=== PATIENT | female | born 1935 | race Caucasian/White ===

== ENCOUNTER → 2016-09-26 | Outpatient (CLI) | payer MEDICARE ==
--- NOTE | 2016-09-27 07:55 | MM ---
Reason for exam: screening (asymptomatic). Last mammogram was performed 1 year ago. History: Patient is postmenopausal. Physical Findings: A clinical breast exam by your physician is recommended on an annual basis and results should be correlated with mammographic findings. MG Screening Mammo w CAD Bilateral CC and MLO view(s) were taken. Prior study comparison: September 21, 2015, bilateral MG screening mammo w CAD. September 08, 2014, bilateral MG screening mammo w CAD. There are scattered fibroglandular densities. Finding: There are typically benign round, linear calcifications in both breasts. There is a chronic nodularity in the left breast. There is no discrete abnormality. ASSESSMENT: Benign, BI-RAD 2 RECOMMENDATION: Routine screening mammogram of both breasts in 1 year.
== END | disposition home or self-care (01) ==
LOC: RADMAMWWP 12:10
PROVIDERS: ATTEND Family Medicine
DX: Z12.31 Encounter for screening mammogram for malignant neoplasm of breast (principal)

== ENCOUNTER → 2018-07-16 | Outpatient (CLI) | payer MEDICARE ==
--- NOTE | 2018-07-17 13:51 | MM ---
Reason for exam: screening (asymptomatic). Last mammogram was performed 1 year and 10 months ago. History: Patient is postmenopausal. Physical Findings: A clinical breast exam by your physician is recommended on an annual basis and results should be correlated with mammographic findings. MG 3D Screening Mammo W/Cad Bilateral CC and MLO view(s) were taken. Prior study comparison: September 26, 2016, bilateral MG screening mammo w CAD. September 21, 2015, bilateral MG screening mammo w CAD. There are scattered fibroglandular densities. Finding: There are very faint fine, grouped/clustered calcifications in the lower inner quadrant, posterior position of the right breast 7cm from the nipple. New finding since September 26, 2016 and September 21, 2015. ASSESSMENT: Incomplete: need additional imaging evaluation, BI-RAD 0 RECOMMENDATION: Special view mammogram of the right breast. [facility] will attempt to contact patient to return for supplemental views.
== END | disposition home or self-care (01) ==
LOC: RADMAMWWP 07:04
PROVIDERS: ATTEND Family Medicine
DX: Z12.31 Encounter for screening mammogram for malignant neoplasm of breast (principal)
CPT/HCPCS: 77063; 77067

== ENCOUNTER → 2018-07-24 | Outpatient (CLI) | payer MEDICARE ==
--- NOTE | 2018-07-24 10:18 | MM ---
Reason for exam: additional evaluation requested from abnormal screening. Last mammogram was performed less than 1 month ago. History: Patient is postmenopausal. Physical Findings: Nurse did not find any significant physical abnormalities on exam. MG 3D Work Up W/Cad RT CC with magnification, ML with magnification, and ML view(s) were taken of the right breast. Prior study comparison: July 16, 2018, bilateral MG 3d screening mammo w/cad. September 26, 2016, bilateral MG screening mammo w CAD. No distinct group of suspicious calcifications persists on additional views. These results were verbally communicated with the patient and result sheet given to the patient on 07/24/18. ASSESSMENT: Benign, BI-RAD 2 RECOMMENDATION: Return to routine screening mammogram schedule for both breasts.
== END ==
LOC: RADMAMWWP 09:05
PROVIDERS: ATTEND Family Medicine
DX: R92.8 Other abnormal and inconclusive findings on diagnostic imaging of breast (principal)
CPT/HCPCS: 77065; G0279; 77061

== ENCOUNTER → 2018-12-02 | Outpatient (CLI) | payer MEDICARE ==
[2018-12-02 09:48] LABS: Blood Urea Nitrogen 17 mg/dL (7-17)
--- NOTE | 2018-12-02 12:11 | CT ---
EXAMINATION TYPE: CT abdomen pelvis w con DATE OF EXAM: 12/02/2018 COMPARISON: None HISTORY: Bllod in urine CT DLP: 1463.8 mGycm Automated exposure control for dose reduction was used. CONTRAST: CT scan of the abdomen pelvis is performed with IV Contrast, patient injected with 100 mL of Isovue 3 00. FINDINGS- LUNG BASES- No significant abnormality is appreciated. LIVER/GB- No gross abnormality is appreciated. PANCREAS- No gross abnormality is seen. SPLEEN- No gross abnormality is seen. ADRENALS- No gross abnormality is seen. KIDNEYS/BLADDER- no hydronephrosis, nephrolithiasis or renal mass. BOWEL-there is a hiatal hernia. Thickening of the wall the distal gastroesophageal junction suggested . Correlate with direct visualization. Diverticulosis of the colon. LYMPH NODES- No greater than 1cm abdominal or pelvic lymph nodes areappreciated. OSSEOUS STRUCTURES-multilevel degenerative disc disease. Canal stenosis is suspected at L4-5, L5-S1. Arthropathy of the hips. Scoliosis noted. Densities along the left humeral head may be related to for eign body or soft tissue ossification. OTHER- post hysterectomy changes noted . Bladder distends normally with no calcifications or wall th ickening. Calcifications in the lower pelvis appear vascular. Aorta of normal caliber with atheroscle rotic changes. No free fluid. Small periumbilical fat-containing hernia noted. Arthropathy of the SI joints. IMPRESSION- 1. No evidence of a renal mass or hydronephrosis, nephrolithiasis. 2. Bladder has a normal appearance. 3. Diverticulosis of the colon. 4. A moderate-sized hiatal hernia with wall thickening the GE junction and could be secondary to the hiatal hernia. Esophagitis remote mucosal lesion not excluded, correlate clinically and if necessary with direct visualization.
== END ==
LOC: RADCTMAIN 08:45
PROVIDERS: ATTEND Urology
DX: K57.30 Diverticulosis of large intestine without perforation or abscess without bleeding (principal); K44.9 Diaphragmatic hernia without obstruction or gangrene; K22.8 Other specified diseases of esophagus; R31.0 Gross hematuria
CPT/HCPCS: 82565; 84520; 74177; 36415; Q9967 ×2

== ENCOUNTER 2019-07-04 10:08 | Day surgery (SDC) | payer MEDICARE ==
[2019-06-30 12:11] VITALS: BMI 37.8
--- NOTE | 2019-07-02 17:14 | HP ---
HISTORY AND PHYSICAL CHIEF COMPLAINT: Left thumb pain. 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 She notes intermittent catching and locking. Her symptoms are worse in the morning. She has tried medications and in addition has had 2 previous injections, with recurrence of her symptoms. PAST MEDICAL HISTORY: Past medical history is significant for: 1. Hypothyroidism. 2. Hypercholesterolemia. 3. Hypertension. PAST SURGICAL HISTORY: Negative. CURRENT MEDICATIONS: 1. Aspirin. 2. Levothyroxine. 3. Antihypertensives. FAMILY HISTORY: Family history is noncontributory. SOCIAL HISTORY: Negative for current tobacco or alcohol use. REVIEW OF SYSTEMS: Sixteen-point review of systems otherwise reviewed and is noncontributory. PHYSICAL EXAMINATION: On examination, the patient is approximately 4 feet 11 inches, 190 pounds of endomorphic habitus. HEENT exam is nonfocal. NECK: Supple. She is nontender about the left shoulder, elbow and wrist. On examination of her left hand, she has moderate stiffness of the left thumb. She is tender over the oblique swati with palpable catching. 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 Light touch is distally intact. IMPRESSION: Recurrent left trigger thumb, symptomatic. RECOMMENDATIONS: I talked to the patient at length regarding her condition along with treatment options. At this point she remains symptomatic despite conservative measures. After thorough discussion, she opted to proceed with surgery. We will plan to proceed with left trigger thumb release. We will likely perform that utilizing local anesthetic and IV sedation. We will likely also perform that as an outpatient procedure. CHARLES / KATERYNAN: [id number] /
[~2019-07-04 10:08] MED LIST: LACTATED RINGERS 1,000 ML IV SCH; LIDOCAINE 1% 20 ML VIAL (10MG/ML) FOR IV START INTRADERMA PRN; MIDAZOLAM 2 MG/2 ML VIAL IV PRN; fentaNYL (PF) 50 MCG/ML 2 ML AMP IV PRN
[2019-07-04 10:26] VITALS: TEMP 97.8
[2019-07-04] MEDS ORDERED: LACTATED RINGERS 1,000 ML IV ONE (10:28)
[2019-07-04] MEDS ORDERED: PROPOFOL 10 MG/ML 20 ML VIAL IV ONE (11:57)
[2019-07-04] MEDS ORDERED: MIDAZOLAM 2 MG/2 ML VIAL ONE (11:57)
[2019-07-04] MEDS ORDERED: fentaNYL (PF) 50 MCG/ML 2 ML AMP ONE (11:57)
[2019-07-04] MEDS ORDERED: BUPIVACAINE (PF) 0.25% 30 ML VIAL SQ ONE ×2 (12:07→12:14)
--- NOTE | 2019-07-04 12:31 | P.OP ---
Date of Procedure: 07/04/19 Preoperative Diagnosis: Symptomatic left trigger thumb Postoperative Diagnosis: Same Procedure(s) Performed: Left trigger thumb release Anesthesia: MAC, local Surgeon: Rik Iverson Estimated Blood Loss (ml): 1 Pathology: none sent Condition: stable Disposition: PACU Indications for Procedure: The patient's an 83-year-old female who presents with persistent left thumb pain and locking despite extensive conservative measures. A discussion of the risks and benefits of operative intervention with patient. She opted to proceed. Operative risks to include infection, neurovascular injury, possible recurrence, possible need for subsequent procedures was discussed. Informed consent was obtained. Operative Findings: As below Description of Procedure: The patient was brought to the operating room, and after induction of IV sedation the left upper extremity was prepped and draped in normal fashion. The tourniquet was inflated to a 250 mm mercury. Incision site was outlined skin marker along the volar proximal crease of the left thumb. 5 mL of quarter percent plain Marcaine was injected the proposed incision site. The skin was incised sharply. Subcu change tissues were divided bluntly. The neurovascular bundles were gently retracted. The oblique swati was identified and was quite thickened. This was then opened proximal to distal completely. A portion was excised. The tendon was inspected and had a nodule present. After release of the swati, there was good tendon excursion. The wound was irrigated normal saline. The skin was reapproximated with simple 4-0 nylon suture. A sterile dressing was applied. The tourniquet was deflated less than 10 minutes total tourniquet time. The patient was then awoken from sedation and transferred to recovery room in good condition. Blood loss was estimated 1 mL. No complications were incurred. Sponge and needle counts were correct at of the end the case.
[2019-07-04] MEDS ORDERED: HYDROCHLOROTHIAZIDE 12.5 MG CAP PO STA (13:15)
[2019-07-04] MEDS ORDERED: ACETAMINOPHEN TAB 500 MG TAB PO ONE (13:27)
[2019-07-04 14:47] VITALS: BP 144/64; PULSE 78; RESP 16
== END 2019-07-04 14:55 | disposition home or self-care (01) ==
LOC: OR 10:08
PROVIDERS: ATTEND Orthopaedic Surgery
DX: M65.312 Trigger thumb, left thumb (principal); I10 Essential (primary) hypertension; E03.9 Hypothyroidism, unspecified; E78.5 Hyperlipidemia, unspecified; E78.00 Pure hypercholesterolemia, unspecified; E66.01 Morbid (severe) obesity due to excess calories; Z88.2 Allergy status to sulfonamides; Z90.710 Acquired absence of both cervix and uterus; Z79.82 Long term (current) use of aspirin; Z68.38 Body mass index [BMI] 38.0-38.9, adult; Z79.890 Hormone replacement therapy; Z79.899 Other long term (current) drug therapy
CPT/HCPCS: 26055; J2250; J0690; J3010; J2704

== ENCOUNTER → 2019-08-28 | Outpatient (CLI) | payer MEDICARE ==
--- NOTE | 2019-08-28 09:54 | BD ---
EXAMINATION TYPE: Axial Bone Density DATE OF EXAM: 08/28/2019 COMPARISON: 08.02.2012 CLINICAL HISTORY: 83 YR OLD FEMALE....ICD-10 CODE: M81.0 OSTEOPOROSIS Height: 57.8 Weight: 196 FRAX RISK QUESTIONS: Secondary Osteoporosis: YES 3. Menopause before 45: YES, AT 43 RISK FACTORS HISTORY OF: Postmenopausal woman: YES, COMPLETE HYST AT AGE 43 YRS Lost more than 2 inches in height since high school: YES Hyperparathyroidism: NO Adrenal Insufficiency: NO MEDICATIONS: Thyroid Medications: YES, SYNTHROID FOR ABOUT 8 YRS Additional Medications: BP MEDS, STATIN FOR CHOLESTEROL, VIT D, CALCIUM Additional History: HYPERTENSION, CHOLESTEROL EXAM MEASUREMENTS: Bone mineral densitometry was performed using the [employer] System. Bone mineral density as measured about the Lumbar spine is: ----- L1-L4(G/cm2): 1.099 T Score Values are as follows: ----- L1: -2.2 ----- L2: -1.8 ----- L3: -1.0 ----- L4: 2.0 ----- L1-L4: -0.7 Bone mineral density has: Increased 11.0% since study of: 08.02.2012 Bone mineral density about the R hip (g/cm2): 0.879 Bone mineral density about the L hip (g/cm2): 0.906 T Score values are as follows: -----R Neck: -2.1 -----L Neck: -2.2 -----R Total: -1.0 -----L Total: -0.8 Bone mineral density has: Increased 1.8% since study of: 08.02.2012 FRAX%s: THERE IS A 14.7% CHANCE FOR A MAJOR OSTEOPOROTIC FX AND A 4.5% FOR HIP....PROBABILITY FOR F X IN 10 YRS TIME IMPRESSION: Osteopenia (T Score between -2.5 and -1). There is slightly increased risk of fracture and the patient may be considered for treatment. Re-Screen 2-5 years. NOTE: T-SCORE=SD OF THE YOUNG ADULT MEAN.
--- NOTE | 2019-08-29 10:49 | MM ---
Reason for exam: screening (asymptomatic). Last mammogram was performed 1 year and 1 month ago. History: Patient is postmenopausal. Physical Findings: A clinical breast exam by your physician is recommended on an annual basis and results should be correlated with mammographic findings. MG Screening Mammo w CAD Bilateral CC and MLO view(s) were taken. Prior study comparison: July 24, 2018, right breast MG 3d work up w/cad RT. July 16, 2018, bilateral MG 3d screening mammo w/cad. There are scattered fibroglandular densities. Finding: There are typically benign round, linear calcifications in both breasts. There is a chronic nodularity bilaterally. There is no discrete abnormality. ASSESSMENT: Benign, BI-RAD 2 RECOMMENDATION: Routine screening mammogram of both breasts in 1 year.
== END | disposition home or self-care (01) ==
LOC: RADMAMWWP 08:28
PROVIDERS: ATTEND Internal Medicine
DX: Z12.31 Encounter for screening mammogram for malignant neoplasm of breast (principal); Z13.820 Encounter for screening for osteoporosis; M85.80 Other specified disorders of bone density and structure, unspecified site
CPT/HCPCS: 77067; 77080

== ENCOUNTER → 2023-05-30 | Outpatient (CLI) | payer MEDICARE ==
--- NOTE | 2023-05-30 21:05 | MR ---
EXAMINATION TYPE: MR lumbar spine wo con DATE OF EXAM: 05/30/2023 COMPARISON: NONE HISTORY: Low back pain and weakness into both legs, Left leg swelling for one year. Monoplegia of low er limb. TECHNIQUE: Multiplanar, multisequence imaging of the lumbar spine is performed without IV contrast. FINDINGS: Sagittal images of the lumbar spine show vertebral body heights to appear satisfactory. The re is extra convex scoliosis centered in the lower lumbar spine. There is grade 1 retrolisthesis of L 1 on L2 and L2 on L3. There is multilevel disc desiccation and disc space narrowing. Advanced disc sp ash narrowing noted at L4-L5 level with heterogeneous Modic type II endplate changes. There is modera te to advanced disc space narrowing at right L1-L2 level with Modic type I endplate changes. The con us medullaris is normal in position and signal ending at mid L1 level. Tiny posterior disc herniatio ns are seen in the lower thoracic spine on sagittal images. Axial images at T12-L1 level show mild facet arthropathy and ligamentum flavum hypertrophy effacing p osterior lateral thecal sac on the left. Axial images L1/L2 level show spondylolisthesis with broad-based disc protrusion having right foramin al and lateral component. There is mild facet arthropathy bilaterally. There is effacement of the ant erior thecal sac. There is moderate right-sided neural foraminal narrowing. Axial images at L2-L3 level shows spondylosis with broad-based posterior disc protrusion effacing ant erior thecal sac and mild facet arthropathy bilaterally. There is mild bilateral neural foraminal lissy rowing. Axial images at L3-L4 level moderate facet arthropathy and ligamentous hypertrophy effacing posterior lateral thecal sac on axial image 12. There is mild broad-based posterior disc protrusion with left paracentral component effacing the anterior thecal sac. There is mild right and moderate left-sided n eural foraminal narrowing. Axial images at L4-L5 level show moderate to advanced facet arthropathy and ligamentum flavum hypertr ophy effacing posterior lateral thecal sac greater on the right axial image 7. There is broad-based p osterior spur disc complex effacing anterior thecal sac. There is moderate to advanced bilateral neur al foraminal narrowing with encroachment on the left L4 nerve thought present sagittal image 4. Axial images at L5-S1 level show advanced facet arthropathy bilaterally. There is broad disc protrusi on. Spinal canal is preserved as there is increased epidural fat. There is mild to moderate right gre ater than left bilateral anterior inferior neural foraminal narrowing. Encroachment on the right L5 n erve is thought present axial image 3. Paraspinal muscle bulk is preserved. IMPRESSION: Scoliosis with multilevel spondylolisthesis and fairly significant degenerative change i n the lumbar spine seen as detailed above.
== END | disposition home or self-care (01) ==
LOC: RADMRIMAIN 16:47
PROVIDERS: ATTEND Internal Medicine
DX: G83.11 Monoplegia of lower limb affecting right dominant side (principal); M43.16 Spondylolisthesis, lumbar region; M47.816 Spondylosis without myelopathy or radiculopathy, lumbar region; M51.26 Other intervertebral disc displacement, lumbar region
CPT/HCPCS: 72148

== ENCOUNTER 2023-11-30 21:19 | Inpatient (IN) | payer MEDICARE ==
[2023-11-30] MEDS: MIDAZOLAM 2 MG/2 ML VIAL IVP ONE ×2 (09:50→21:50)
[2023-11-30] MEDS: SODIUM CHLORIDE 0.9% 1,000 ML IV ONE (09:50)
[2023-11-30] MEDS: fentaNYL (PF) 50 MCG/1 ML VIAL IVP ONE ×2 (09:50→21:50)
--- NOTE | 2023-11-30 21:25 | ED ---
Chest Pain HPI - General Stated Complaint: stemi - History of Present Illness Initial Comments: This patient is an 88-year-old woman with history of recent DVT who presents to have evaluation of chest pain that started between 7 and 730. The patient states that she had just stood up and she thought that it may have been related to getting to her feet. The pain did not stop she called EMS. The EMS ECG was concerning for STEMI so they did give aspirin and transported the patient here. The patient denies history of previous bypass or stents. She is a lifelong non- smoker. She was put on Xarelto 2 weeks ago for DVT in the right thigh. MD Complaint: chest pain Onset/Timin -: hour(s) Onset: during rest Pain Location: substernal Pain Radiation: none Severity: moderate Quality: aching Consistency: constant Improves With: nothing Worsens With: nothing Treatments Prior to Arrival: aspirin, oxygen - Related Data Home Medications Medication Instructions Recorded Confirmed Levothyroxine Sodium [Synthroid] 25 mcg PO DAILY 06/30/19 12/01/23 Metoprolol Tartrate [Lopressor] 12.5 mg PO BID 12/01/23 12/01/23 Previous Rx's Medication Instructions Recorded Aspirin 81 mg PO DAILY tab 12/11/23 Atorvastatin [Lipitor] 80 mg PO HS tab 12/11/23 Clopidogrel [Plavix] 75 mg PO DAILY tab 12/11/23 Furosemide [Lasix] 20 mg PO DAILY tab 12/11/23 Nitroglycerin Sl Tabs [Nitrostat] 0.4 mg SUBLINGUAL Q5M PRN tab 12/11/23 Pantoprazole [Protonix] 40 mg PO AC-BID tab 12/11/23 levETIRAcetam [Keppra] 500 mg PO HS tab 12/11/23 Allergies Allergy/AdvReac Type Severity Reaction Status Date / Time Sulfa (Sulfonamide Allergy hot all Verified 12/01/23 10:59 Antibiotics) over Review of Systems ROS Statement: Those systems with pertinent positive or pertinent negative responses have been documented in the HPI. ROS Other: All systems not noted in ROS Statement are negative. Constitutional: Denies: fever, chills Respiratory: Denies: cough, dyspnea Cardiovascular: Reports: chest pain. Denies: palpitations, edema, syncope Gastrointestinal: Denies: abdominal pain, nausea, vomiting, diarrhea Genitourinary: Denies: dysuria, hematuria Musculoskeletal: Denies: back pain Skin: Denies: rash Neurological: Denies: headache, weakness EKG Findings - EKG Results: EKG: interpreted by RAUL, sinus rhythm (Rate 95 bpm) - [place], Pacemaker, Normal: Myocardial infarction: lateral [place] (acute or recent) (There are ST elevations in 1 and aVL, reciprocal changes in lead III) Past Medical History Past Medical History: Hyperlipidemia, Hypertension, Thyroid Disorder Additional Past Medical History / Comment(s): recent blood in urine-now resolved History of Any Multi-Drug Resistant Organisms: None Reported Past Surgical History: Bladder Surgery, Hysterectomy Additional Past Surgical History / Comment(s): bladder biopsy 2 weeks ago, colonoscopy Past Anesthesia/Blood Transfusion Reactions: No Reported Reaction Past Psychological History: No Psychological Hx Reported Past Alcohol Use History: None Reported Past Drug Use History: None Reported - Past Family History Mother Family Medical History: No Reported History General Exam General appearance: alert, in no apparent distress Head exam: Present: atraumatic, normocephalic Eye exam: Present: normal appearance. Absent: scleral icterus, conjunctival injection Neck exam: Present: normal inspection Respiratory exam: Present: normal lung sounds bilaterally. Absent: respiratory distress, wheezes, rales, rhonchi, stridor Cardiovascular Exam: Present: regular rate, normal rhythm, normal heart sounds. Absent: systolic murmur, diastolic murmur, rubs, gallop GI/Abdominal exam: Present: soft. Absent: distended, tenderness, guarding, rebound, rigid, mass, pulsatile mass Extremities exam: Present: normal inspection, normal capillary refill. Absent: pedal edema, calf tenderness Back exam: Present: normal inspection. Absent: CVA tenderness (R), CVA tenderness (L) Neurological exam: Present: alert Skin exam: Present: warm, dry, intact, normal color. Absent: rash Course Vital Signs 11/30/23 21:21 Temperature 98.6 F Pulse Rate 98 Respiratory 24 Rate Blood Pressure 200/96 O2 Sat by Pulse 98 Oximetry Chest Pain MDM - MDM The patient had chest x-ray which I interpreted as showing cardiomegaly. No acute infiltrate Patient is an 88-year-old woman brought by ambulance to have evaluation of chest pain. The telemetry ECG does show changes concerning for lateral STEMI and therefore the Cvt Rn was activated. On arrival, the patient's evaluated. The ECG here does appear similar to telemetry ECG. Patient does acknowledge taking Xarelto as directed and therefore heparin will be held at this point. I discussed case with cardiology and they will take the patient for heart catheterization. Case discussed with admitting physician Was pt. sent in by a medical professional or institution (, BAILEY, EMERGENCY RESPONSE TECHNICIAN, urgent care, hospital, or [facility]...) When possible be specific @ -[No] Did you speak to anyone other than the patient for history (EMS, parent, family, police, friend...)? What history was obtained from this source @ -[EMS contributed to history Did you review nursing and triage notes (agree or disagree)? Why? @ -[I reviewed and agree with nursing and triage notes] Were old charts reviewed (outside hosp., previous admission, EMS record, old EKG, old radiological studies, urgent care reports/EKG's, [facility] records)? Report findings @ -[This old charts were reviewed] Differential Diagnosis (chest pain, altered mental status, abdominal pain women, abdominal pain men, vaginal bleeding, weakness, fever, dyspnea, syncope, headache, dizziness, GI bleed, back pain, seizure, CVA, palpatations, mental health, musculoskeletal)? @ -Differential Chest Pain: Stable Angina, Unstable Angina, STEMI, NSTEMI Aortic Dissection, Pneumothorax, Musculoskeletal, Esophageal Spasm GERD, Cholecystitis, Pancreatitis, Zoster, this is not meant to be an all-inclusive list. EKG interpreted by me (3pts min.). @ -[I interpreted as above X-rays interpreted by me (1pt min.). @ -[I interpreted as above CT interpreted by me (1pt min.). @ -[None done] U/S interpreted by me (1pt. min.). @ -[None done] What testing was considered but not performed or refused? (CT, X-rays, U/S, labs)? Why? @ -[None] What meds were considered but not given or refused? Why? @ -[None] Did you discuss the management of the patient with other professionals (professionals i.e. BAILEY Clark, EMERGENCY RESPONSE TECHNICIAN, lab, RT, psych nurse, social science analyst, attorney lawyer, teacher, chief technology officer, family service caseworker)? Give summary @ -I discussed the patient's case with the admitting physician and also with the film color tester. Treatment recommendations were incorporated. Was smoking cessation discussed for >3mins.? @ -[No] Was critical care preformed (if so, how long)? @ -[Yes, 35 minutes Were there social determinants of health that impacted care today? How? (Homelessness, low income, unemployed, alcoholism, drug addiction, transportation, low edu. Level, literacy, decrease access to med. care, senior care, rehab)? @ -[No] Was there de-escalation of care discussed even if they declined (Discuss DNR or withdrawal of care, Hospice)? DNR status @ -[No] What co-morbidities impacted this encounter? (DM, HTN, Smoking, COPD, CAD, Cancer, CVA, ARF, Chemo, Hep., AIDS, mental health diagnosis, sleep apnea, morbid obesity)? @ -[Pretension Was patient admitted / discharged? Hospital course, mention meds given and route, prescriptions, significant lab abnormalities, going to OR and other pertinent info. @ -[Patient will be admitted to have heart catheterization. Undiagnosed new problem with uncertain prognosis? @ -[No] Drug Therapy requiring intensive monitoring for toxicity (Heparin, Nitro, Insulin, Cardizem)? @ -[No] Were any procedures done? @ -[No] Diagnosis/symptom? @ -[Acute STEMI Acute, or Chronic, or Acute on Chronic? @ -[Acute Uncomplicated (without systemic symptoms) or Complicated (systemic symptoms)? @ -[Uncomplicated Side effects of treatment? @ -[No] Exacerbation, Progression, or Severe Exacerbation? @ -[No] Poses a threat to life or bodily function? How? (Chest pain, [place], [place], pneumonia, PE, COPD, DKA, ARF, appy, cholecystitis, CVA, Diverticulitis, Homicidal, Suicidal, threat to staff... and all critical care pts) @ -Yes Critical Care Time Critical Care Time: Yes (35 minutes) Disposition Clinical Impression: ST elevation myocardial infarction (STEMI) Disposition: ADMITTED IP TO THIS [facility] Condition: Fair Is patient prescribed a controlled substance at d/c from ED?: No
[2023-11-30 21:42] LABS: Basophils # (A) 0.1 k/uL (0-0.2); Basophils % (A) 1 %; Eosinophils # (A) 0.1 k/uL (0-0.7); Eosinophils % (A) 1 %; HCT 39.6 % (34.0-46.0); HGB 12.7 gm/dL (11.4-16.0); Lymphocytes # (A) 3.6 k/uL (1.0-4.8); Lymphocytes % (A) 32 %; MCH 32.3 pg (25.0-35.0); MCHC 32.2 g/dL (31.0-37.0); MCV 100.3 fL (80.0-100.0); Mean Platelet Volume 6.9; Monocytes # (A) 0.6 k/uL (0-1.0); Monocytes % (A) 5 %; Neutrophils # (A) 6.6 k/uL (1.3-7.7); Neutrophils % (A) 59 %; Platelet Count 296 k/uL (150-450); RBC 3.94 m/uL (3.80-5.40); RDW 12.6 % (11.5-15.5); WBC 11.2 k/uL (3.8-10.6)
[2023-11-30] MEDS ORDERED: fentaNYL (PF) 50 MCG/ML 2 ML AMP ONE (21:48)
[2023-11-30] MEDS: LIDOCAINE 1% INJ 10MG/ML (20 ML MDV) SQ ONE (21:48)
[2023-11-30] MEDS ORDERED: HEPARIN SODIUM 1,000 UN/ML (10ML VL) ONE (21:48)
[2023-11-30 21:51] LABS: INR 1.3 (<1.2); Partial Thromboplastin Time 35.4 sec (22.0-30.0); Prothrombin Time 13.6 sec (10.0-12.5)
[2023-11-30 21:52] LABS: Chloride 100 mmol/L (98-107)
[2023-11-30 21:54] LABS: African American GFR (CKD) 55 (>60 ml/min/1.73 sqM); Anion Gap 7 mmol/L; Blood Urea Nitrogen 45 mg/dL (7-17); Carbon Dioxide 23 mmol/L (22-30); Glucose 150 mg/dL (74-99); Potassium 5.2 mmol/L (3.5-5.1); Sodium 130 mmol/L (137-145)
[2023-11-30 21:55] LABS: ALT 27 U/L (4-34); AST 37 U/L (14-36); Albumin 4.4 g/dL (3.5-5.0); Alkaline Phosphatase 88 U/L (38-126); Calcium 9.6 mg/dL (8.4-10.2); Non-African American GFR(CKD) 48 (>60 ml/min/1.73 sqM); Total Bilirubin 0.5 mg/dL (0.2-1.3); Total Protein 6.6 g/dL (6.3-8.2)
[2023-11-30] MEDS: VERAPAMIL SYRINGE (5 MG/10 ML) INTRAARTER ONE (21:55)
[2023-11-30] MEDS ORDERED: NITROGLYCERIN SL TABS 0.4 MG TAB SUBLINGUAL ONE (22:09)
[2023-11-30] MEDS: NITROGLYCERIN SL TABS 0.4 MG TAB SUBLINGUAL ONE (22:10)
[2023-11-30] MEDS ORDERED: CLOPIDOGREL 75 MG TAB ONE (22:33)
[2023-11-30] MEDS: CLOPIDOGREL 75 MG TAB PO ONE (22:37)
[2023-11-30] MEDS: HEPARIN SODIUM 1,000 UN/ML (10ML VL) IV ONE (22:40)
[2023-11-30] MEDS ORDERED: FUROSEMIDE 10 MG/ML 4 ML VIAL ONE (22:48)
[2023-11-30] MEDS: FUROSEMIDE 10 MG/ML 4 ML VIAL IV ONE (22:51)
[2023-11-30] MEDS: IOPAMIDOL-370 100ML BTL INJ ONE (22:59)
[2023-11-30] MEDS ORDERED: ZOLPIDEM 5 MG TAB PO PRN (23:00)
[2023-11-30] MEDS ORDERED: RX INFO: IV CONTRAST WAS GIVEN 1 EACH MISC MISCELLANE PRN (23:00)
[2023-11-30] MEDS ORDERED: ATROPINE SULFATE 0.1 MG/ML 10ML SYRINGE IV PRN (23:00)
[2023-11-30] MEDS ORDERED: MAG HYDROX/AL HYDROX/SIMETH 30 ML CUP PO PRN (23:00)
[2023-11-30] MEDS ORDERED: NITROGLYCERIN SL TABS 0.4 MG TAB SUBLINGUAL PRN (23:00)
[2023-11-30 23:26] LABS: Glucose,Whole Blood 151 mg/dL (70-110)
[2023-11-30] MEDS: SODIUM CHLORIDE 0.9% 1,000 ML in EMPTY BAG 1 BAG IV SCH (23:28)
[2023-12-01] MEDS: NITROGLYCERIN SL TABS 0.4 MG TAB SUBLINGUAL PRN (01:53)
[2023-12-01] MEDS: ACETAMINOPHEN TAB 325 MG TAB PO PRN (02:09)
--- NOTE | 2023-12-01 04:21 | CONS ---
CONSULTATION CHIEF COMPLAINT: Chest pain. HISTORY OF PRESENT ILLNESS: This is an 88-year-old lady with history of hypertension and recent history of DVT involving right leg following a venous ablation, who presented to hospital with 2 hours worth of chest pain that started suddenly in the form of pressure. EKG shows ST- segment elevation in 1 and aVL suggestive of acute anterolateral myocardial infarction. At the time of my evaluation in the EMS and the laboratory chemist, the patient's chest pain is improving, but it is still there and she is stable hemodynamically. I advised her to undergo emergent cardiac catheterization with a view to performing angioplasty. PAST MEDICAL HISTORY: Significant for DVT and hypertension. MEDICATIONS: Include Xarelto and blood pressure medicines. ALLERGIES: Sulfa. FAMILY HISTORY: Negative for premature coronary artery disease. SOCIAL HISTORY: Negative for smoking, EtOH abuse, or drug abuse. REVIEW OF SYSTEMS: A review of systems has been performed, pertinents are as documented. PHYSICAL EXAMINATION: GENERAL: Comfortable at rest. VITAL SIGNS: Stable. CHEST: Reveals good air entry bilaterally. HEART: Reveals first and second heart sounds. No gallop. ABDOMEN: Soft. EXTREMITIES: Did not reveal any edema. Peripheral pulses are felt. LABS: Pending at this time. Labs are not available. ASSESSMENT AND PLAN: Acute anterolateral myocardial infarction. PLAN: The patient will undergo emergent cardiac catheterization. She understands the risk of bleeding as she is on Xarelto and has taken Xarelto this evening. MMODL / IJN: [id number] /
--- NOTE | 2023-12-01 04:52 | XR ---
EXAM: XR chest 1V portable CLINICAL INDICATION:Female, 88 years old with history of chest pain; [facility] COMPARISON: No priors available TECHNIQUE: Chest single view. FINDINGS: Lines/tubes/devices: Monitor leads overlie the chest. No indwelling lines are seen. There is a thin s traight linear metallic-appearing radiodensity seen projected over the right clavicle, about 7 cm in length, which has the appearance of a hypodermic needle. Cardiomediastinum: Cardiac silhouette appears moderately enlarged. Aorta appears somewhat tortuous. Trachea appears patent but bows to the right at the level of the aor tic arch. Mediastinal contours appear well-defined. Vasculature: Mildly prominent hilar shadows likely relate to vasculature, possibly the pulmonary art eries; this can be seen with pulmonary hypertension. Lungs/pleura: No consolidation, sizeable effusion, or visible pneumothorax. Chronic senescent changes in the lungs are present. COPD is a possibility. Bones/soft tissues: No acute osseous pathology is demonstrated. Mild/moderate degenerative changes of the spine and shoul ders. IMPRESSION: 1. Linear radiodensity projecting over the right clavicle, with the appearance of a large hypodermic needle. This could be within or extrinsic to the patient. Please correlate clinically. 2. Cardiomegaly and chronic changes as described. No suggestion of acute cardiopulmonary disease/pro cess.
[2023-12-01 05:14] LABS: Appearance,Urine Clear (Clear); Bilirubin,Urine Negative (Negative); Blood,Urine Negative (Negative); Color,Urine Colorless; Glucose,Urine (UA) Negative (Negative); Ketones,Urine Negative (Negative); Leukocyte Esterase,Urine Negative (Negative); Nitrite,Urine Negative (Negative); PH, Urine 5.5 (5.0-8.0); Protein,Urine Negative (Negative); Specific Gravity,Urine 1.018 (1.001-1.035); Urobilinogen,Urine <2.0 mg/dL (<2.0)
--- NOTE | 2023-12-01 05:16 | CC ---
CARDIAC CATHETERIZATION REPORT INDICATIONS: Acute anterolateral myocardial infarction. PROCEDURE NOTE: After obtaining informed consent, left heart catheterization and coronary angiogram were performed via the right radial artery. The patient received moderate conscious sedation, total sedation time was 25 minutes. The patient was on Eliquis prior to coming in to hospital and has received a dose this evening, hence I did not give any heparin. She received verapamil per protocol. Right radial artery access was obtained using Seldinger technique. A 6-Polish sheath was placed. Catheter and wire were floated into the ascending aorta under fluoroscopic guidance. After obtaining right coronary angiogram, I found that the patient has very tortuous subclavian and I could not manipulate the left Jaki into the aortic root. Dr. Woodward tried different catheters and wires, was unsuccessful hence a long sheath was a 70 cm sheath was placed through which the diagnostic angiogram of the left coronary was completed. FINDINGS: 1. Hemodynamics: Central aortic pressure is 160/70 mm. LVEDP is 31 mm without any gradient 2. Left Ventriculogram: Left ventriculogram is not performed. 3. Angiographic Data: a.Right Coronary Artery: Right coronary artery is a large dominant vessel that shows 70% stenosis proximally. Left main coronary artery is small normal- sized vessel and is free of stenosis. Divides into left anterior descending coronary artery and circumflex coronary artery. Circumflex coronary artery is a nondominant vessel and is free of significant stenosis. LAD shows a focal area of 95% stenosis in the proximal portion. CONCLUSION: Two-vessel coronary artery disease as described above with a focal 95% stenosis involving proximal LAD and a 60% to 70% stenosis involving right coronary artery. PLAN: The patient will undergo angioplasty with stent placement of LAD. MMODL / IJN: [id number] / [facility]
[2023-12-01 06:16] LABS: Basophils % (A) 0 %; Eosinophils % (A) 0 %; HCT 35.2 % (34.0-46.0); HGB 11.2 gm/dL (11.4-16.0); Lymphocytes # (A) 1.7 k/uL (1.0-4.8); Lymphocytes % (A) 13 %; MCH 32.2 pg (25.0-35.0); MCHC 31.8 g/dL (31.0-37.0); MCV 101.4 fL (80.0-100.0); Macrocytosis Slight; Mean Platelet Volume 7.4; Monocytes # (A) 0.6 k/uL (0-1.0); Monocytes % (A) 5 %; Neutrophils # (A) 10.2 k/uL (1.3-7.7); Neutrophils % (A) 80 %; Platelet Count 274 k/uL (150-450); RBC 3.47 m/uL (3.80-5.40); WBC 12.7 k/uL (3.8-10.6)
[2023-12-01 06:48] LABS: African American GFR (CKD) 70 (>60 ml/min/1.73 sqM); Anion Gap 6 mmol/L; Blood Urea Nitrogen 39 mg/dL (7-17); Calcium 9.1 mg/dL (8.4-10.2); Carbon Dioxide 23 mmol/L (22-30); Chloride 101 mmol/L (98-107); Glucose 123 mg/dL (74-99); Non-African American GFR(CKD) 61 (>60 ml/min/1.73 sqM); Potassium 4.4 mmol/L (3.5-5.1); Sodium 130 mmol/L (137-145)
--- NOTE | 2023-12-01 06:51 | PTCA ---
PERCUTANEOUSTRANS CORORONARY ANGIOGRAPHY PERFORMING PHYSICIAN: German Woodward MD. PROCEDURES PERFORMED: Successful stenting of the proximal left anterior descending artery using 3.5 x 15 mm Xience drug-eluting stent with adjunctive use of intravascular imaging. INDICATIONS: ST-elevation myocardial infarction. COMPLICATIONS: None. LEVEL OF SEDATION: Moderate, with sedation length of 24 minutes. PROCEDURE DESCRIPTION: Please refer to diagnostic heart catheterization was performed by Dr. Cortez earlier today. Anticoagulation was initiated using heparin with continuous ACT monitoring. Subsequently, I did engage the left main using JL3.5 guiding catheter. After that, I did wire the LAD using a run-through wire. Predilatation was performed using 3-mm noncompliant balloon. After that, I did intravascular ultrasound which showed a diameter around 3.5 to 4 mm. I deployed 3.5 x 15 mm stent where the stent was positioned in the proximal LAD under fluoroscopic guidance and deployed under fluoroscopic guidance. Consider triple therapy for 4 weeks including low dose oral anticoagulation along with P2Y12 inhibitor along with baby aspirin. Drop the aspirin in 4 weeks and continue P2Y12 inhibitor along with low dose oral anticoagulation for 12 months as an inpatient or as an outpatient. MMODL / IJN: [id number] /
[2023-12-01] MEDS: ASPIRIN 81 MG PO SCH (09:47)
[2023-12-01] MEDS: CLOPIDOGREL 75 MG TAB PO SCH (09:48)
[2023-12-01] MEDS: RIVAROXABAN 2.5 MG TABLET PO SCH (09:48)
[2023-12-01] MEDS: METOPROLOL TARTRATE 25 MG TAB PO SCH (09:48)
[2023-12-01] MEDS: lisinopriL 10 MG TAB PO SCH (09:54)
[2023-12-01] MEDS: LEVOTHYROXINE 25 MCG TAB PO SCH (09:54)
--- NOTE | 2023-12-01 12:37 | P.HPIM ---
History of Present Illness H&P Date: 12/01/23 Chief Complaint: Chest pain * 8-year-old patient with past medical history significant for deep vein thrombosis already on anticoagulation with Xarelto, history of hypertension, hypothyroid, hyperlipidemia presents to the emergency department with complaints of new onset chest pain. Patient had acute onset of chest discomfort and EMS was called. Upon presentation to ED patient was noted to have waited AZ involving anterior lateral leads. Patient underwent cardiac catheterization it showed two-vessel coronary artery disease with stenosis and LAD as well as RCA. * Workup in ER included CBC which showed WBC count of 11.2 hemoglobin 12.7 platelet count of 296. INR of 1.3 * The time of presentation initial blood work showed sodium 130, potassium 5.2 which improved to 4.4 creatinine of 1.06 which improved to 0.87, troponin of 1.82 urinalysis was done which was within normal limit * Patient underwent cardiac catheterization and was transferred to medical ICU for further manage REVIEW OF SYSTEMS: Chest pain, shortness of breath CONSTITUTIONAL: No fever, no malaise, no fatigue. HEENT: No recent visual problems or hearing problems. Denied any sore throat. CARDIOVASCULAR: No chest pain, orthopnea, PND, no palpitations, no syncope. PULMONARY: Chest pain, shortness of breath GASTROINTESTINAL: No diarrhea, no nausea, no vomiting, no abdominal pain. NEUROLOGICAL: No headaches, no weakness, no numbness. HEMATOLOGICAL: Denies any bleeding or petechiae. GENITOURINARY: Denies any burning micturition, frequency, or urgency. MUSCULOSKELETAL/RHEUMATOLOGICAL: Denies any joint pain, swelling, or any muscle pain. ENDOCRINE: Denies any polyuria or polydipsia. PHYSICAL EXAMINATION: GENERAL: The patient is alert and oriented x3, not in any acute distress. Well developed, well nourished. HEENT: Pupils are round and equally reacting to light. EOMI. CARDIOVASCULAR: S1 and S2 present. No murmurs, rubs, or gallops. Right radial access no hematoma noted PULMONARY: Chest is clear to auscultation, no wheezing or crackles. ABDOMEN: Soft, nontender, nondistended, normoactive bowel sounds. No palpable organomegaly. MUSCULOSKELETAL: No joint swelling or deformity. EXTREMITIES: No cyanosis, clubbing, or pedal edema. NEUROLOGICAL: Gross neurological examination did not reveal any focal deficits. SKIN: No rashes. Assessment and plan * ST elevated AZ with coronary artery disease * S/p cardiac catheterization * Hx of DVT * Hypertension * Hyperlipidemia * Leukocytosis likely reactive * For coronary artery disease continue patient on antiplatelet aspirin, Plavix, Lipitor * In regards to history of hypertension continue patient on lisinopril, hydrochlorothiazide on hold secondary to hyponatremia * Regards to hyperlipidemia continue Lipitor * In regards to leukocytosis monitor for fever continue fluid hydration * Regards to DVT patient transition to Xarelto therapeutic dosing * Status is full code Past Medical History Past Medical History: Deep Vein Thrombosis (DVT), Hyperlipidemia, Hypertension, Thyroid Disorder Additional Past Medical History / Comment(s): recent blood in urine-now resolved History of Any Multi-Drug Resistant Organisms: None Reported Past Surgical History: Bladder Surgery, Hysterectomy Additional Past Surgical History / Comment(s): bladder biopsy 2 weeks ago, colonoscopy Past Anesthesia/Blood Transfusion Reactions: No Reported Reaction Past Psychological History: No Psychological Hx Reported Smoking Status: Never smoker Past Alcohol Use History: None Reported Past Drug Use History: None Reported - Past Family History Mother Family Medical History: No Reported History Medications and Allergies Home Medications Medication Instructions Recorded Confirmed Type Atorvastatin [Lipitor] 10 mg PO DAILY 06/30/19 12/01/23 History Levothyroxine Sodium [Synthroid] 25 mcg PO DAILY 06/30/19 12/01/23 History hydroCHLOROthiazide [Hydrodiuril] 25 mg PO DAILY 06/30/19 12/01/23 History Metoprolol Tartrate [Lopressor] 12.5 mg PO BID 12/01/23 12/01/23 History Rivaroxaban [Xarelto] 20 mg PO DAILY 12/01/23 12/01/23 History lisinopriL [Zestril] 10 mg PO BID 12/01/23 12/01/23 History Allergies Allergy/AdvReac Type Severity Reaction Status Date / Time Sulfa (Sulfonamide Allergy hot all Verified 12/01/23 10:59 Antibiotics) over Physical Exam Vitals: Vital Signs Temp Pulse Pulse Resp BP BP Pulse Ox 12/01/23 08:02 95 12/01/23 07:20 82 16 95 12/01/23 07:00 93 18 126/60 95 12/01/23 06:40 74 20 127/63 94 L 12/01/23 06:20 75 16 119/58 96 12/01/23 06:00 73 18 112/50 96 12/01/23 05:40 70 15 98/46 96 12/01/23 05:20 69 14 85/48 96 12/01/23 05:00 65 12 106/53 95 12/01/23 04:40 76 19 122/56 94 L 12/01/23 04:20 74 21 114/60 96 12/01/23 04:00 98.2 F 73 14 122/47 96 12/01/23 03:40 72 15 123/53 99 12/01/23 03:20 73 12 106/46 98 12/01/23 03:00 69 15 104/41 97 12/01/23 02:40 68 15 109/47 98 12/01/23 02:20 74 16 96/54 97 12/01/23 02:00 81 16 121/53 94 L 12/01/23 01:30 76 18 140/70 97 12/01/23 01:00 80 24 98 12/01/23 00:30 85 12 98 12/01/23 00:21 97.4 F L 87 12 146/84 96 12/01/23 00:00 97.4 F L 82 21 146/84 95 11/30/23 23:30 92 11 L 90 L 11/30/23 23:22 192 H 19 90 L 11/30/23 22:13 97.4 F L 86 16 146/84 98 11/30/23 21:21 98.6 F 98 24 200/96 98 Intake and Output 11/30/23 12/01/23 12/01/23 22:59 06:59 14:59 Intake Total 525 75 Output Total 1300 300 Balance -775 -225 Intake: IV 525 75 Sodium Chloride 0.9% 1, 75 000 ml @ 0 mls/hr IV .STK -[facility] Rx#:[id number] Sodium Chloride 0.9% 1, 450 75 000 ml In Empty Bag 1 bag @ 75 mls/hr IV .[id number] [facility] Rx#:[id number] Output: Urine 1300 300 Other: Voiding Method External Catheter # Bowel Movements 1 Weight 84.368 kg 89.8 kg Results CBC & Chem 7: 12/01/23 05:27 12/01/23 05:27 Labs: Abnormal Lab Results - Last 24 Hours (Table) 11/30/23 11/30/23 11/30/23 Range/Units 21:31 21:31 21:31 WBC 11.2 H (3.8-10.6) k/uL RBC (3.80-5.40) m/uL Hgb (11.4-16.0) gm/dL MCV 100.3 H (80.0-100.0) fL Neutrophils # (1.3-7.7) k/uL PT 13.6 H (10.0-12.5) sec INR 1.3 H (<1.2) APTT 35.4 H (22.0-30.0) sec Sodium 130 L (137-145) mmol/L Potassium 5.2 H (3.5-5.1) mmol/L BUN 45 H (7-17) mg/dL Creatinine 1.06 H (0.52-1.04) mg/dL Glucose 150 H (74-99) mg/dL POC Glucose (mg/dL) (70-110) mg/dL AST 37 H (14-36) U/L Troponin I (0.000-0.034) ng/mL 11/30/23 11/30/23 12/01/23 Range/Units 21:31 23:24 05:27 WBC 12.7 H (3.8-10.6) k/uL RBC 3.47 L (3.80-5.40) m/uL Hgb 11.2 L (11.4-16.0) gm/dL MCV 101.4 H (80.0-100.0) fL Neutrophils # 10.2 H (1.3-7.7) k/uL PT (10.0-12.5) sec INR (<1.2) APTT (22.0-30.0) sec Sodium (137-145) mmol/L Potassium (3.5-5.1) mmol/L BUN (7-17) mg/dL Creatinine (0.52-1.04) mg/dL Glucose (74-99) mg/dL POC Glucose (mg/dL) 151 H (70-110) mg/dL AST (14-36) U/L Troponin I 1.820 H* (0.000-0.034) ng/mL 12/01/23 Range/Units 05:27 WBC (3.8-10.6) k/uL RBC (3.80-5.40) m/uL Hgb (11.4-16.0) gm/dL MCV (80.0-100.0) fL Neutrophils # (1.3-7.7) k/uL PT (10.0-12.5) sec INR (<1.2) APTT (22.0-30.0) sec Sodium 130 L (137-145) mmol/L Potassium (3.5-5.1) mmol/L BUN 39 H (7-17) mg/dL Creatinine (0.52-1.04) mg/dL Glucose 123 H (74-99) mg/dL POC Glucose (mg/dL) (70-110) mg/dL AST (14-36) U/L Troponin I (0.000-0.034) ng/mL Thrombosis Risk Factor Assmnt - Choose All That Apply Each Factor Represents 1 point: Acute [place] Other Risk Factors: No Other congenital or acquired thrombophilia - If yes, enter type in comment: No Thrombosis Risk Factor Assessment Total Risk Factor Score: 1 Thrombosis Risk Factor Assessment Level: Low Risk
[2023-12-01 13:06] VITALS: BMI 39.9
[2023-12-01] MEDS: RIVAROXABAN 15 MG TAB PO SCH (16:58)
--- NOTE | 2023-12-01 18:52 | PN ---
PROGRESS NOTE SUBJECTIVE: Stephani is an 88-year-old lady, who presented to [facility] yesterday with acute anterolateral myocardial infarction and underwent emergent cardiac catheterization, angioplasty of LAD. She also has significant disease involving right coronary artery and will undergo an IFR and intervention either tomorrow or on Sunday. This morning, she is doing well and is free of symptoms. She is currently on aspirin, Lipitor, Plavix, Zestril 10 b.i.d., and Xarelto for DVT. OBJECTIVE: GENERAL: Comfortable at rest. VITAL SIGNS: Stable. NECK: There is no jugular venous distention. Carotid upstroke is normal. There is no bruit. CHEST: Reveals good air entry bilaterally. HEART: Reveals first and second heart sounds. No gallop. EXTREMITIES: Did not reveal any edema. Peripheral pulses are felt. ASSESSMENT AND PLAN: Acute anterolateral myocardial infarction, status post catheterization and angioplasty of the left anterior descending. She will continue current medications. We will transfer her out of ICU, obtain a 2D echo. CHARLES / KATERYNAN: [id number] /
--- NOTE | 2023-12-01 19:07 | PN ---
PROGRESS NOTE ADDENDUM: The left ventricular end-diastolic pressure was 30 mm. MMODL / IJN: [id number] /
[2023-12-01] MEDS: ATORVASTATIN 80 MG TAB PO SCH (20:11)
[2023-12-02 08:00] LABS: African American GFR (CKD) 77 (>60 ml/min/1.73 sqM); Anion Gap 7 mmol/L; Blood Urea Nitrogen 28 mg/dL (7-17); Calcium 9.2 mg/dL (8.4-10.2); Carbon Dioxide 23 mmol/L (22-30); Chloride 97 mmol/L (98-107); Glucose 105 mg/dL (74-99); Non-African American GFR(CKD) 67 (>60 ml/min/1.73 sqM); Potassium 4.5 mmol/L (3.5-5.1); Sodium 127 mmol/L (137-145)
[2023-12-02 08:04] LABS: HCT 35.6 % (34.0-46.0); HGB 11.6 gm/dL (11.4-16.0); MCH 31.8 pg (25.0-35.0); MCHC 32.4 g/dL (31.0-37.0); MCV 98.1 fL (80.0-100.0); Mean Platelet Volume 7.8; Platelet Count 274 k/uL (150-450); RBC 3.63 m/uL (3.80-5.40); RDW 12.9 % (11.5-15.5); WBC 10.1 k/uL (3.8-10.6)
[2023-12-02] MEDS ORDERED: ALPRAZolam 0.5 MG TAB PO PRN (08:54)
[2023-12-02] MEDS ORDERED: ALPRAZolam 0.25 MG TAB PO PRN (08:54)
[2023-12-02] MEDS ORDERED: NITROGLYCERIN SL TABS 0.4 MG TAB SUBLINGUAL PRN (08:54)
--- NOTE | 2023-12-02 09:39 | CA ---
Transthoracic Echo Report Name: Eve Ashby Age: 88 Gender: F : 1935 Exam Date: 12/01/2023 11:45 Exam Location: [place] [facility] Ht (in): 59 Wt (lb): 197 Ordering Physician: Sadia Wang Attending/Referring Phys: [id number], Kathleen Victim Witness Administrator Iwona Lyons RDCS Procedure CPT: Indications: LV function, [place] Cardiac Hx: Technical Quality: Very technically difficult study Contrast 1: Definity Total Dose (mL): 2 Contrast 2: Total Dose (mL): MEASUREMENTS (Male / Female) Normal Values 2D ECHO LVOT Diameter 2.0 cm LV Diastolic Volume MOD BP 114.9 cm??? 67 - 155 / 56 - 104 cm??? LV Systolic Volume MOD BP 65.4 cm??? 22 - 58 / 19 - 49 cm??? LV Ejection Fraction MOD BP 43.0 % >= 55 % LV Cardiac Index MOD BP 1398.4 cm???/min???m??? LV Diastolic Volume MOD 4C 104.2 cm??? LV Systolic Volume MOD 4C 57.5 cm??? LV Ejection Fraction MOD 4C 44.8 % LV Cardiac Index MOD 4C 1320.3 cm???/min???m??? LV Diastolic Length 4C 7.3 cm LV Systolic Length 4C 6.9 cm LV Diastolic Volume MOD 2C 121.5 cm??? LV Systolic Volume MOD 2C 76.1 cm??? LV Ejection Fraction MOD 2C 37.4 % LV Cardiac Index MOD 2C 1284.8 cm???/min???m??? LV Diastolic Length 2C 7.7 cm LV Systolic Length 2C 7.0 cm LA Volume 66.8 cm??? 18 - 58 / 22 - 52 cm??? LA Volume Index 33.7 cm???/m??? 16 - 28 cm???/m??? DOPPLER AV Peak Velocity 120.0 cm/s AV Peak Gradient 5.8 mmHg AV Mean Velocity 85.3 cm/s AV Mean Gradient 3.2 mmHg AV Velocity Time Integral 25.8 cm LVOT Peak Velocity 98.5 cm/s LVOT Peak Gradient 3.9 mmHg LVOT Velocity Time Integral 23.1 cm LVOT Stroke Volume 70.4 cm??? LVOT Stroke Volume Index 38.4 ml/m??? LVOT Cardiac Index 1990.8 cm???/min???m??? AV Area Cont Eq vti 2.7 cm??? AV Area Cont Eq pk 2.5 cm??? MV Area PHT 3.6 cm??? Mitral E Point Velocity 60.6 cm/s Mitral A Point Velocity 99.2 cm/s Mitral E to A Ratio 0.6 MV Deceleration Time 211.4 ms TR Peak Velocity 219.7 cm/s TR Peak Gradient 19.3 mmHg Right Atrial Pressure 5.0 mmHg Pulmonary Artery Systolic Pressu 24.3 mmHg Right Ventricular Systolic Press 24.3 mmHg PV Peak Velocity 75.3 cm/s PV Peak Gradient 2.3 mmHg FINDINGS Left Ventricle Left ventricular ejection fraction is estimated at 30-35%. Mildly increased left ventricular diastolic volume. Moderately increased left ventricular systolic volume. Moderately decreased left ventricular ejection fraction. Akinetic ballooning apex. Right Ventricle Normal right ventricular size and function. Right ventricular systolic pressure within normal limits. Right Atrium Right atrium not well visualized. Left Atrium Mildly increased left atrial volume. Mitral Valve Mild thickening/calcification of the anterior mitral valve leaflet. No evidence for mitral valve prolapse. No mitral stenosis. No mitral regurgitation. Aortic Valve Aortic valve not well visualized. No aortic stenosis. Mild aortic regurgitation. Tricuspid Valve Structurally normal tricuspid valve. No tricuspid stenosis. Mild tricuspid regurgitation. Pulmonic Valve Pulmonic valve not well visualized. Pericardium No pericardial effusion. Aorta Normal size aortic root and proximal ascending aorta. CONCLUSIONS Severe LV systolic dysfunction with an ejection fraction of 35% Akinetic apex Mild aortic and tricuspid regurgitation Previewed by: Dr. Kit Cortez MD (Electronically Signed) Final Date: 02 December 2023 09:38
--- NOTE | 2023-12-02 11:15 | P.PN ---
Subjective Progress Note Date: 12/02/23 History of present illness: This is an 88-year-old female with past medical history of hypertension, DVT in the right leg following venous ablation. Patient presented to the hospital with chest pain/pressure. EKG showed ST segment elevation and 1 and aVL suggestive of acute anterior lateral myocardial infarction. Patient underwent emergent cardiac catheterization which revealed two-vessel coronary artery disease with a focal 95% stenosis involving the proximal LAD and 60 to 70% involving the right coronary artery. Patient subsequently underwent successful stenting of the proximal LAD artery. 12/01 Due to the significant disease involving the right coronary artery, patient will be scheduled for IFR and intervention on Sunday with Dr. Woodward. Patient and daughter have been updated and all questions have been answered. We will try to obtain records from [facility] on [place] for cardiac catheterization report. Patient is on Xarelto long-term for DVT and we will plan to hold the morning dose on Sunday only. Blood pressure 111/77, heart rate in the 70s and 80s. Pulse ox 96% on room air. Repeat blood work reveals hemoglobin 11.6, WBC improved to 10.1. Sodium 127, potassium 4.5, BUN 28 creatinine 0.8. Echocardiogram reveals EF of 30 to 35%. Mildly increased left ventricular d iastolic volume. Moderately increased left ventricular systolic volume. Moderately decreased left ventricular ejection fraction. Akinetic ballooning apex. Patient was previously following with a database specialist out of [facility] and plans to follow-up with Dr. Mook Cortez at the time of discharge. Physical examination: Gen: This is an 88-year-old female in no acute distress VS: reviewed HEENT: Head is atraumatic, normocephalic. Pupils equal, round. Sclerae is anicteric. NECK: Supple. No JVD. LUNGS: Good air entry bilaterally. No intercostal retractions. HEART: Regular rate and rhythm. No murmur. ABDOMEN: Soft No tenderness. EXTREMITIES: No pedal edema. No calf tenderness. NEUROLOGICAL: Patient is awake, alert and oriented x3. Assessment: Acute anterior lateral myocardial infarction status post cardiac catheterization and angioplasty of the left anterior descending Coronary artery disease in the right coronary artery Hypertension DVT in the right leg Plan: Continue current medications: Aspirin 81 mg daily, atorvastatin 80 mg at bedtime, Plavix 75 mg daily, lisinopril 10 mg twice daily, Lopressor 25 mg twice daily Hold tomorrow morning's dose of Xarelto Patient is scheduled for cardiac catheterization tomorrow with Dr. Woodward Further recommendations to follow based upon clinical course Nurse practitioner note has been reviewed, I agree with documented findings and plan of care. Patient was seen and examined. Objective - Vital Signs Vital signs: Vital Signs Temp 97.8 F 12/02/23 08:17 Pulse 85 12/02/23 08:17 Resp 18 12/02/23 08:17 BP 111/77 12/02/23 08:17 Pulse Ox 96 12/02/23 08:17 FiO2 Intake & Output 12/01/23 12/02/23 12/02/23 18:59 06:59 18:59 Intake Total 575 20 10 Output Total 450 Balance 125 20 10 Weight 89.8 kg Intake: IV 225 20 10 Invasive Line 1 10 Invasive Line 2 10 10 Sodium Chloride 0.9% 1, 225 000 ml In Empty Bag 1 bag @ 75 mls/hr IV .[id number] [facility] Rx#:[id number] Oral 350 Output: Urine 450 Other: Voiding Method Bedside Commode Bedside Commode # Voids 1 1 # Bowel Movements 1 - Labs CBC & Chem 7: 12/02/23 06:50 12/02/23 06:50 Labs: Abnormal Lab Results - Last 24 Hours (Table) 12/02/23 12/02/23 Range/Units 06:50 06:50 RBC 3.63 L (3.80-5.40) m/uL Sodium 127 L (137-145) mmol/L Chloride 97 L (98-107) mmol/L BUN 28 H (7-17) mg/dL Glucose 105 H (74-99) mg/dL
--- NOTE | 2023-12-02 13:53 | P.PN ---
Subjective Progress Note Date: 12/02/23 * 88-year-old patient with past medical history significant for deep vein thrombosis already on anticoagulation with Xarelto, history of hypertension, hypothyroid, hyperlipidemia presents to the emergency department with complaints of new onset chest pain. Patient had acute onset of chest discomfort and EMS was called. Upon presentation to ED patient was noted to have waited OR involving anterior lateral leads. Patient underwent cardiac catheterization it showed two-vessel coronary artery disease with stenosis and LAD as well as RCA. * Workup in ER included CBC which showed WBC count of 11.2 hemoglobin 12.7 platelet count of 296. INR of 1.3 * The time of presentation initial blood work showed sodium 130, potassium 5.2 which improved to 4.4 creatinine of 1.06 which improved to 0.87, troponin of 1.82 urinalysis was done which was within normal limit * Patient underwent cardiac catheterization and was transferred to medical ICU for further manage * 12/02/23 : Patient transferred out of medical ICU, echocardiogram completed shows ejection fraction of 35%, patient remains chest pain-free, patient does complain of lower extremity paresthesias, will need outpatient follow-up probably will need nerve conduction study PHYSICAL EXAMINATION: GENERAL: The patient is alert and oriented x3, not in any acute distress. Well developed, well nourished. HEENT: Pupils are round and equally reacting to light. EOMI. CARDIOVASCULAR: S1 and S2 present. No murmurs, rubs, or gallops. Right radial access no hematoma noted PULMONARY: Chest is clear to auscultation, no wheezing or crackles. ABDOMEN: Soft, nontender, nondistended, normoactive bowel sounds. No palpable organomegaly. MUSCULOSKELETAL: No joint swelling or deformity. EXTREMITIES: Trace lower extremity edema noted NEUROLOGICAL: Gross neurological examination did not reveal any focal deficits. SKIN: No rashes. Assessment and plan * ST elevated OR with coronary artery disease * Ischemic cardiomyopathy with acute systolic congestive heart failure * S/p cardiac catheterization * Hx of DVT * Hypertension * Hyperlipidemia * Leukocytosis likely reactive * For coronary artery disease continue patient on antiplatelet aspirin, Plavix, Lipitor, plan for repeat cardiac catheterization tomorrow * In regards to history of hypertension continue patient on lisinopril, hydrochlorothiazide on hold secondary to hyponatremia * Regards to hyperlipidemia continue Lipitor * In regards to leukocytosis monitor for fever, likely reactive resolved * In regards to DVT patient transition to Xarelto therapeutic dosing Objective - Vital Signs Vital signs: Vital Signs Temp 97.8 F 12/02/23 08:17 Pulse 85 12/02/23 08:17 Resp 18 12/02/23 08:17 BP 111/77 12/02/23 08:17 Pulse Ox 96 12/02/23 08:17 FiO2 Intake & Output 12/01/23 12/02/23 12/02/23 18:59 06:59 18:59 Intake Total 575 20 368 Output Total 450 Balance 125 20 368 Weight 89.8 kg Intake: IV 225 20 10 Invasive Line 1 10 Invasive Line 2 10 10 Sodium Chloride 0.9% 1, 225 000 ml In Empty Bag 1 bag @ 75 mls/hr IV .[id number] [facility] Rx#:[id number] Oral 350 358 Output: Urine 450 Other: Voiding Method Bedside Commode Bedside Commode # Voids 1 1 # Bowel Movements 1 - Labs CBC & Chem 7: 12/02/23 06:50 12/02/23 06:50 Labs: Abnormal Lab Results - Last 24 Hours (Table) 12/02/23 12/02/23 Range/Units 06:50 06:50 RBC 3.63 L (3.80-5.40) m/uL Sodium 127 L (137-145) mmol/L Chloride 97 L (98-107) mmol/L BUN 28 H (7-17) mg/dL Glucose 105 H (74-99) mg/dL
[2023-12-02] MEDS: ONDANSETRON 4 MG/2 ML VIAL IVP PRN (16:26)
[2023-12-02] MEDS: RIVAROXABAN 20 MG TAB PO SCH (18:34)
[2023-12-03] MEDS: ASPIRIN 325 MG TAB PO ONE (06:26)
[2023-12-03] MEDS: ATORVASTATIN 80 MG TAB PO ONE (06:26)
[2023-12-03] MEDS ORDERED: HEPARIN SODIUM,PORCINE 10,000 UNIT in SODIUM CHLORIDE 0.9% 1,000 ML IRRIGATION PRN (07:00)
[2023-12-03] MEDS ORDERED: HEPARIN SODIUM,PORCINE (1 ML) 2,500 UNIT in SODIUM CHLORIDE 0.9% 250 ML IRRIGATION PRN (07:00)
[2023-12-03 07:23] LABS: African American GFR (CKD) 87 (>60 ml/min/1.73 sqM); Anion Gap 4 mmol/L; Blood Urea Nitrogen 23 mg/dL (7-17); Calcium 8.9 mg/dL (8.4-10.2); Carbon Dioxide 24 mmol/L (22-30); Chloride 93 mmol/L (98-107); Glucose 106 mg/dL (74-99); Non-African American GFR(CKD) 75 (>60 ml/min/1.73 sqM); Potassium 4.9 mmol/L (3.5-5.1); Sodium 121 mmol/L (137-145)
[2023-12-03 07:33] LABS: HCT 35.4 % (34.0-46.0); HGB 11.2 gm/dL (11.4-16.0); Hypochromasia Slight; MCH 32.5 pg (25.0-35.0); MCHC 31.5 g/dL (31.0-37.0); MCV 102.9 fL (80.0-100.0); Macrocytosis Slight; Mean Platelet Volume 7.2; Platelet Count 267 k/uL (150-450); RBC 3.44 m/uL (3.80-5.40); RDW 12.6 % (11.5-15.5); WBC 10.2 k/uL (3.8-10.6)
[2023-12-03] MEDS: IV FLUID CONTINUATION 950 ML IV ONE (10:22)
[2023-12-03] MEDS ORDERED: fentaNYL (PF) 50 MCG/ML 2 ML AMP ONE (10:39)
[2023-12-03] MEDS: MIDAZOLAM 2 MG/2 ML VIAL IVP ONE (11:00)
[2023-12-03] MEDS: LIDOCAINE 1% INJ 10MG/ML (20 ML MDV) SQ ONE (11:03)
[2023-12-03] MEDS: fentaNYL (PF) 50 MCG/1 ML VIAL IVP ONE (11:03)
[2023-12-03] MEDS: VERAPAMIL SYRINGE (5 MG/10 ML) INTRAARTER ONE (11:04)
[2023-12-03] MEDS ORDERED: HEPARIN SODIUM 1,000 UN/ML (10ML VL) ONE (11:09)
[2023-12-03] MEDS: NITROGLYCERIN 1000MCG/10ML SYRINGE INTRACORON ONE (11:39)
[2023-12-03] MEDS: IOPAMIDOL-370 100ML BTL INJ ONE (11:42)
[2023-12-03] MEDS ORDERED: NITROGLYCERIN SL TABS 0.4 MG TAB SUBLINGUAL PRN (11:45)
[2023-12-03] MEDS ORDERED: ATROPINE SULFATE 0.1 MG/ML 10ML SYRINGE IV PRN (11:45)
[2023-12-03] MEDS ORDERED: MAG HYDROX/AL HYDROX/SIMETH 30 ML CUP PO PRN (11:45)
[2023-12-03] MEDS ORDERED: ZOLPIDEM 5 MG TAB PO PRN (11:45)
[2023-12-03] MEDS ORDERED: RX INFO: IV CONTRAST WAS GIVEN 1 EACH MISC MISCELLANE PRN (11:45)
--- NOTE | 2023-12-03 11:50 | P.PCN ---
Date of Procedure: 12/03/23 Operative Findings: PERCUTANEOUS CORONARY INTERVENTION Performing physician German Woodward M.D. Procedure Performed: 1. Successful stenting of the mid RCA using 4.0 x 38 mm Xience drug-eluting stent with an excellent angiographic results. 2. Adjunctive use of Dobler wire and intravascular imaging 3. Ultrasound-guided access of the right radial artery Indication: This is an 88-year-old female patient who was admitted to the hospital 2 days ago with acute anterior ST elevation myocardial infarction and underwent PCI of the LAD. She was brought today to undergo an FFR of the RCA. Approach: Right radial artery Complications: None Level of Sedation: Moderate with a sedation length of 39 minutes Procedure Discussion: After obtaining informed consent the patient was brought to the cardiac [employer]. The right radial artery was cannulated using micropuncture technique under ultrasound guidance the micropuncture wire passed easily then initially I placed a 6 Faroese 11 cm sheath at the right radial artery and after that I did give the patient 2 mg of verapamil intra-arterial and 4000 units of heparin intravenous. Knowing from before that the right subclavian is extremely tortuous I did advance an [address] to the aortic root and subsequently I did exchange my 11 cm sheath into a 70 cm sheath using 035 stiff wire and that was the Amplatzer wire. After that I did start anticoagulation. Subsequently I did decide to proceed with an FFR of the RCA. After zeroing the Doppler wire and equalizing between the Doppler wire and guiding catheter which was JR4 guiding catheter I did engage the RCA and subsequently I wired the RCA using the Doppler wire. We did an IFR and that came in to be ischemic at 0.88. Subsequently I did wired the RCA using a poppy wire that was run-through wire because the artery was extremely tortuous and the guide was not giving any support. I did intravascular ultrasound and that showed a diameter around 4 mm with calcified vessel in the midportion. Predilatation was performed using 3.5 mm balloon before I deployed a 4.0 x 38 mm stent where the stent was positioned under fluoroscopy guidance and deployed under fluoroscopy guidance. An angiogram was performed and showed excellent angiographic results and the procedure was completed with no complication Postprocedure Management: 1. Continue antiplatelet therapy using aspirin and Plavix for a total of 12 months 2. Aggressive cholesterol control 3. Aggressive risk factors modification and follow-up with the patient
[2023-12-03] MEDS: SODIUM CHLORIDE 0.9% 1,000 ML in EMPTY BAG 1 BAG IV SCH (12:23)
--- NOTE | 2023-12-03 12:23 | P.PN ---
Subjective Progress Note Date: 12/03/23 * 88-year-old patient with past medical history significant for deep vein thrombosis already on anticoagulation with Xarelto, history of hypertension, hypothyroid, hyperlipidemia presents to the emergency department with complaints of new onset chest pain. Patient had acute onset of chest discomfort and EMS was called. Upon presentation to ED patient was noted to have waited SC involving anterior lateral leads. Patient underwent cardiac catheterization it showed two-vessel coronary artery disease with stenosis and LAD as well as RCA. * Workup in ER included CBC which showed WBC count of 11.2 hemoglobin 12.7 platelet count of 296. INR of 1.3 * The time of presentation initial blood work showed sodium 130, potassium 5.2 which improved to 4.4 creatinine of 1.06 which improved to 0.87, troponin of 1.82 urinalysis was done which was within normal limit * Patient underwent cardiac catheterization and was transferred to medical ICU for further manage * 12/02/23 : Patient transferred out of medical ICU, echocardiogram completed shows ejection fraction of 35%, patient remains chest pain-free, patient does complain of lower extremity paresthesias, will need outpatient follow-up probably will need nerve conduction study * 12/03/23: , blood work reviewed hemoglobin 11.2, serum chemistry revealed sodiu m 127, nephrology consulted, urine osmolality urine sodium levels ordered. Nephrology consulted chlorothiazide remain on hold, available had gone for cardiac catheterization. Will follow-up postcardiac catheterization tomorrow Assessment and plan * ST elevated SC with coronary artery disease * Ischemic cardiomyopathy with acute systolic congestive heart failure * S/p cardiac catheterization * Acute hyponatremia * Hx of DVT * Hypertension * Hyperlipidemia * Leukocytosis likely reactive * For coronary artery disease continue patient on antiplatelet aspirin, Plavix, Lipitor, plan for repeat cardiac catheterization scheduled for today * In regards to history of hypertension continue patient on lisinopril, hydrochlorothiazide on hold secondary to hyponatremia * In regards to hyponatremia urine osmolality urine sodium serum osmolality ordered * Regards to hyperlipidemia continue Lipitor * In regards to leukocytosis monitor for fever, likely reactive resolved * In regards to DVT patient transition to Xarelto therapeutic dosing, intermittently held in anticipation of cardiac catheterization Objective - Vital Signs Vital signs: Vital Signs Temp 98.3 F 12/03/23 07:44 Pulse 56 L 12/03/23 07:44 Resp 20 12/03/23 07:44 BP 123/63 12/03/23 07:44 Pulse Ox 98 12/03/23 07:44 FiO2 Intake & Output 12/02/23 12/03/23 12/03/23 18:59 06:59 18:59 Intake Total 496 20 Balance 496 20 Intake: IV 20 20 Invasive Line 1 10 Invasive Line 2 20 10 Oral 476 Other: Voiding Method Bedside Commode Bedside Commode Bedside Commode # Voids 2 2 # Bowel Movements 1 - Labs CBC & Chem 7: 12/03/23 06:29 12/03/23 06:29 Labs: Abnormal Lab Results - Last 24 Hours (Table) 12/03/23 12/03/23 Range/Units 06:29 06:29 RBC 3.44 L (3.80-5.40) m/uL Hgb 11.2 L (11.4-16.0) gm/dL MCV 102.9 H (80.0-100.0) fL Sodium 121 L (137-145) mmol/L Chloride 93 L (98-107) mmol/L BUN 23 H (7-17) mg/dL Glucose 106 H (74-99) mg/dL
--- NOTE | 2023-12-03 12:33 | P.NPCON ---
History of Present Illness - Reason for Consult hyponatremia - History of Present Illness patient is an 88-year-old female with history of hypertension, hyperlipidemia who was admitted to the hospital with chest pain. Patient ruled in foracute ST elevation CT, status post cardiac catheterization and stenting of LAD on on 11/30/2023. Patient had another cardiac cath and stenting of RCA today. sodium was 1:30 on 11/30 and decreased to 127 yesterday. Today it is at 121. Started on normal saline after cardiac catheterization. Patient is currently slightly confused after the procedure. She is comfortable with no acute distress. Review of Systems as per HPI Past Medical History Past Medical History: Deep Vein Thrombosis (DVT), Hyperlipidemia, Hypertension, Thyroid Disorder Additional Past Medical History / Comment(s): recent blood in urine-now resolved History of Any Multi-Drug Resistant Organisms: None Reported Past Surgical History: Bladder Surgery, Hysterectomy Additional Past Surgical History / Comment(s): bladder biopsy 2 weeks ago, colonoscopy Past Anesthesia/Blood Transfusion Reactions: No Reported Reaction Past Psychological History: No Psychological Hx Reported Smoking Status: Never smoker Past Alcohol Use History: None Reported Past Drug Use History: None Reported - Past Family History Mother Family Medical History: No Reported History Medications and Allergies Home Medications Medication Instructions Recorded Confirmed Type Atorvastatin [Lipitor] 10 mg PO DAILY 06/30/19 12/01/23 History Levothyroxine Sodium [Synthroid] 25 mcg PO DAILY 06/30/19 12/01/23 History hydroCHLOROthiazide [Hydrodiuril] 25 mg PO DAILY 06/30/19 12/01/23 History Metoprolol Tartrate [Lopressor] 12.5 mg PO BID 12/01/23 12/01/23 History Rivaroxaban [Xarelto] 20 mg PO DAILY 12/01/23 12/01/23 History lisinopriL [Zestril] 10 mg PO BID 12/01/23 12/01/23 History Allergies Allergy/AdvReac Type Severity Reaction Status Date / Time Sulfa (Sulfonamide Allergy hot all Verified 12/01/23 10:59 Antibiotics) over Physical Exam Vitals: Vital Signs Temp Pulse Resp BP Pulse Ox 12/03/23 07:44 98.3 F 56 L 20 123/63 98 12/03/23 04:00 72 16 127/72 94 L 12/03/23 00:00 98.4 F 73 18 109/63 93 L 12/02/23 20:00 98.1 F 64 18 118/63 95 12/02/23 15:40 97.9 F 59 L 21 135/60 97 Intake and Output 12/02/23 12/03/23 12/03/23 22:59 06:59 14:59 Intake Total 20 50 Balance 20 50 Intake: IV 20 50 Invasive Line 1 10 Invasive Line 2 10 Other: Voiding Method Bedside Commode Bedside Commode Bedside Commode # Voids 1 2 patient is awake, comfortable, no acute distress Examination of the heart S1 and S2 Examination of the lungs bilateral breath sounds are heard Abdomen is soft nontender Examination of lower extremities shows trace edema bilaterally Moving all 4 extremities. Results - Lab Results Most recent lab results Calcium 8.9 mg/dL (8.4-10.2) 12/03/23 06: Magnesium 2.0 mg/dL (1.6-2.3) 11/30/23 21:31 12/03/23 06:29 12/03/23 06:29 Assessment and Plan Assessment: 1. Hyponatremia, possibly hypovolemic. Started on normal saline. Repeat sodium in 3 hours. Check urine osmolality. 2 g sodium chloride [address] status post cardiac catheterization on 11/30/2023 with stenting of LAD and status post cardiac catheterization today with stenting of RCA. 3. Ischemic cardiomyopathy 4. Hypertension, maintained on REGINALD inhibitor's. 5. Hypothyroidism Plan: sodium chloride 2 g 1. Continue with saline for now Repeat sodium in 3 hours Check urine osmolality check bladder scan and rule out urine retention. thank you for the consultation. We will continue to follow the patient with you during her hospitalization.
[2023-12-03] MEDS: SODIUM CHLORIDE TAB 1 GM TAB PO STA (12:58)
[2023-12-03 13:42] LABS: Glucose,Whole Blood 132 mg/dL (70-110)
[2023-12-03] MEDS: PROCHLORPERAZINE INJ 10 MG/2 ML VIAL IVP PRN (13:46)
--- NOTE | 2023-12-03 15:24 | CT ---
EXAMINATION TYPE: CT brain wo con DATE OF EXAM: 12/03/2023 COMPARISON: None INDICATION: Acute mental status changes DLP: 1047.1 mGycm, Automated exposure control for dose reduction was used. CONTRAST: None CT of the brain is performed utilizing 3 mm thick sections through the posterior fossa and 3 mm thick sections through the remaining calvarium. Study is performed within 24 hours of arrival to the hosp [facility]. There is a 1.8 cm hyperdensity within the left temporal lobe compatible with hemorrhage. Sulci of the inferior left parietal and occipital lobes appear effaced compared to the remaining prominence of th e ventricles and sulci. This could reflect an underlying developing acute infarct. Report was called to mikhail, the patient's nurse by Dr. Guzman by telephone at the time of interpretation. No mass lesion is evident. Remaining Ventricles and sulci are prominent for the patient age. No effacement of the ventricles is evident. Third ventricle fourth ventricle are midline. Quadrigeminal plate and ambient cistern are p atent. Paranasal sinuses and mastoid air cells within the [id number] are clear. IMPRESSION: 1. 1.8 cm hemorrhage left temporal lobe. 2. There is effacement of sulci of the inferior left parietal and occipital lobes suggesting developi ng underlying infarct.
[2023-12-03 17:00] LABS: INR 0.9 (<1.2); Prothrombin Time 10.4 sec (10.0-12.5)
[2023-12-03] MEDS ORDERED: Kcentra PER PHARMACY 1 EACH MISC MISCELLANE PRN (17:06)
[2023-12-03] MEDS: HUMAN PROTHROMBIN COMPLX IV ONE (18:08)
[2023-12-03 18:50] LABS: African American GFR (CKD) >90 (>60 ml/min/1.73 sqM); Anion Gap 7 mmol/L; Blood Urea Nitrogen 23 mg/dL (7-17); Calcium 8.6 mg/dL (8.4-10.2); Carbon Dioxide 19 mmol/L (22-30); Chloride 95 mmol/L (98-107); Glucose 134 mg/dL (74-99); Non-African American GFR(CKD) 80 (>60 ml/min/1.73 sqM); Sodium 121 mmol/L (137-145)
[2023-12-03 20:32] LABS: African American GFR (CKD) >90 (>60 ml/min/1.73 sqM); Anion Gap 5 mmol/L; Blood Urea Nitrogen 21 mg/dL (7-17); Calcium 8.3 mg/dL (8.4-10.2); Carbon Dioxide 22 mmol/L (22-30); Chloride 93 mmol/L (98-107); Glucose 115 mg/dL (74-99); Non-African American GFR(CKD) 80 (>60 ml/min/1.73 sqM); Potassium 4.8 mmol/L (3.5-5.1); Sodium 120 mmol/L (137-145)
[2023-12-03] MEDS: PANTOPRAZOLE 40 MG/10 ML VIAL IVP SCH (21:56)
[2023-12-03] MEDS: levETIRAcetam IV 500 MG/5 ML VIAL IVP SCH (21:56)
[2023-12-03] MEDS: FUROSEMIDE 10 MG/ML 4 ML VIAL IV STA (21:56)
--- NOTE | 2023-12-03 23:42 | CT ---
EXAM: CT Head Without Intravenous Contrast CLINICAL HISTORY: ITS.REASON CT Reason: Hemorrhage TECHNIQUE: Axial computed tomography images of the head/brain without intravenous contrast. CTDI is 59.43 mGy and DLP is 1225 mGy-cm. This CT exam was performed using one or more of the following dose reduction techniques: automated exposure control, adjustment of the mA and/or kV according to patient size, and/or use of iterative reconstruction technique. COMPARISON: No relevant prior studies available. FINDINGS: Brain: 1.7 x 0.8 cm intraparenchymal hemorrhage involving the left temporal lobe. Allowing for subtle differences in technique this has decreased slightly from the prior exam where it measured 1.8 x 1 cm. Associated vasogenic edema involving the adjacent left temporal lobe parenchyma. Severe ischemic microangiopathy unchanged. No large territorial infarcts. Ventricles: Unremarkable. No ventriculomegaly. Bones/joints: Unremarkable. No acute fracture. Soft tissues: Unremarkable. Sinuses: Unremarkable as visualized. No acute sinusitis. Mastoid air cells: Unremarkable as visualized. No mastoid effusion. IMPRESSION: 1.7 x 0.8 cm left temporal lobe intraparenchymal hemorrhage slightly decreased in size when compared with the prior exam.
[2023-12-04 01:05] LABS: African American GFR (CKD) 89 (>60 ml/min/1.73 sqM); Anion Gap 5 mmol/L; Blood Urea Nitrogen 21 mg/dL (7-17); Calcium 8.8 mg/dL (8.4-10.2); Carbon Dioxide 23 mmol/L (22-30); Chloride 92 mmol/L (98-107); Glucose 105 mg/dL (74-99); Non-African American GFR(CKD) 77 (>60 ml/min/1.73 sqM); Potassium 4.8 mmol/L (3.5-5.1); Sodium 120 mmol/L (137-145)
[2023-12-04] MEDS: TOLVAPTAN 15 MG TABLET PO ONE ×2 (04:01→18:09)
--- NOTE | 2023-12-04 05:46 | P.CNPUL ---
History of Present Illness Consult date: 12/04/23 Requesting physician: Keya Lux Reason for consult: other (ICU evaluation, hemorrhagic stroke) Chief complaint: Chest pain status post PCI, subsequently developing altered mental status History of present illness: Patient is an 88-year-old female with past medical history significant for hyp ertension, hyperlipidemia, hypothyroidism, DVT anticoagulated on Xarelto. Patient was was brought in to the emergency department by EMS 11/30/[address] elevation AL. She was given aspirin in route. She was emergently taken to the [facility] and was noted to have two-vessel coronary artery disease. She did receive a stent to the LAD. Subsequently, on 12/03/2023 she was taken back to the [facility] and underwent PCI/stenting of the RCA. Following the procedure, she became confused. Also was noted to exhibit some expressive dysphasia. She also had an isolated episode of vomiting. No reported trauma or falls. This incited the code stroke protocol. Initial brain CT demonstrated a 1.8 centimeter hemorrhage in the left temporal lobe. There was effacement of the Berna of the inferior left parietal and occipital lobes suggesting developing underlying infarct. Apparently, patient's family and decision maker declined transfer to tertiary care center for possible surgical intervention. Family is considering comfort care if she were to decompensate. She is currently a DO NOT RESUSCITATE and DO NOT INTUBATE. Of course, patient Xarelto is on hold. Patient's family also reportedly refused Kcentra. Follow- up brain CT at 2341 last night redemonstrated the 1.7 x 0.8 cm left temporal lobe intraparenchymal hemorrhage, slightly decreased in size. There is associated vasogenic edema involving the adjacent left temporal lobe parenchyma. Our medical neurologist on-call is following and making recommendations. Patient is currently lying in bed, she is alert and follows most simple commands. She is oriented only to self. She appears confused. There is a industrial safety and health manager at bedside. There is likely some underlying expressive dysphasia. No reported seizure activity. Able to protect airway, no further episodes of emesis. Hemodynamically, vital signs have remained stable. SpO2 99% on 2 L/min nasal cannula. Respiration 14 to 20 breaths/min. Blood pressure normotensive, most recently recorded at 119/60 mmHg. Heart rate 60 bpm. Most recent CBC unremarkable. BMP from this morning includes a sodium of 120, potassium 4.8, chloride 92, serum bicarb 23, BUN 21, creatinine 0.72, glucose 105. Nephrology is managing the patient's hyponatremia. Consider SIADH. As stated above, patient's family/decision makers are asking for conservative management. They do not want the patient to be intubated. They do not want the patient to be transferred to tertiary care center. Overall prognosis is certainly guarded. Review of Systems ROS unobtainable: due to mental status Past Medical History Past Medical History: Deep Vein Thrombosis (DVT), Hyperlipidemia, Hypertension, Thyroid Disorder Additional Past Medical History / Comment(s): recent blood in urine-now resolved History of Any Multi-Drug Resistant Organisms: None Reported Past Surgical History: Bladder Surgery, Hysterectomy Additional Past Surgical History / Comment(s): bladder biopsy 2 weeks ago, colonoscopy Past Anesthesia/Blood Transfusion Reactions: No Reported Reaction Past Psychological History: No Psychological Hx Reported Smoking Status: Never smoker Past Alcohol Use History: None Reported Past Drug Use History: None Reported - Past Family History Mother Family Medical History: No Reported History Medications and Allergies Home Medications Medication Instructions Recorded Confirmed Type Atorvastatin [Lipitor] 10 mg PO DAILY 06/30/19 12/01/23 History Levothyroxine Sodium [Synthroid] 25 mcg PO DAILY 06/30/19 12/01/23 History hydroCHLOROthiazide [Hydrodiuril] 25 mg PO DAILY 06/30/19 12/01/23 History Metoprolol Tartrate [Lopressor] 12.5 mg PO BID 12/01/23 12/01/23 History Rivaroxaban [Xarelto] 20 mg PO DAILY 12/01/23 12/01/23 History lisinopriL [Zestril] 10 mg PO BID 12/01/23 12/01/23 History Allergies Allergy/AdvReac Type Severity Reaction Status Date / Time Sulfa (Sulfonamide Allergy hot all Verified 12/01/23 10:59 Antibiotics) over Physical Exam Vitals: Vital Signs Temp Pulse Resp BP Pulse Ox 12/03/23 23:38 99.3 F 61 18 119/60 99 12/03/23 19:57 99.0 F 78 16 122/56 96 12/03/23 18:53 60 110/63 12/03/23 15:30 97.9 F 60 16 132/57 99 12/03/23 14:30 53 L 127/57 12/03/23 13:49 56 L 12/03/23 13:30 56 L 132/68 12/03/23 13:00 55 L 137/74 12/03/23 12:30 57 L 127/54 12/03/23 12:06 53 L 16 140/67 92 L 12/03/23 07:44 98.3 F 56 L 20 123/63 98 12/03/23 04:00 72 16 127/72 94 L Intake and Output 12/03/23 12/03/23 12/04/23 14:59 22:59 06:59 Intake Total 50 Output Total 100 325 700 Balance -50 -325 -700 Intake: IV 50 Output: Urine 325 700 Emesis 100 Other: Voiding Method Bedside Commode Indwelling Catheter GENERAL EXAM: Alert and restless, pulling at IV lines, industrial safety and health manager is at bedside. HEAD: Normocephalic and atraumatic EYES: Normal reaction of pupils, equal size. NOSE: Clear with pink turbinates. THROAT: No erythema or exudates. NECK: No masses, no JVD. CHEST: No chest wall deformity. LUNGS: Equal air entry with no crackles, wheeze, rhonchi or dullness. On 2 L/min nasal cannula. No conversational dyspnea or accessory muscle use.. CVS: S1 and S2 normal with no audible murmur, regular rhythm. No extra heart sounds ABDOMEN: No hepatosplenomegaly, active bowel sounds, no guarding or rigidity. SPINE: No scoliosis or deformity SKIN: No rashes CENTRAL NERVOUS SYSTEM: Note that neurologic exam is limited by patient cooperation. She is currently alert. She is oriented to self only. Likely some underlying expressive expressive dysphasia. Appears restless grasping at support devices and IV lines. Cranial nerves II through XII appear intact. no obvious hemiparesis. No obvious ataxia. Patellar DTRs are 2+ bilaterally. EXTREMITIES: There is no peripheral edema, clubbing, or cyanosis. Peripheral pulses are intact. Results - Laboratory Findings CBC and BMP: 12/04/23 11:31 12/04/23 11:43 PT/INR, D-dimer PT 10.4 sec (10.0-12.5) 12/03/23 16:17 INR 0.9 (<1.2) 12/03/23 16:17 Abnormal lab findings: Abnormal Labs 11/30/23 11/30/23 11/30/23 21:31 21:31 21:31 WBC 11.2 H RBC Hgb MCV 100.3 H Neutrophils # PT 13.6 H INR 1.3 H APTT 35.4 H Sodium 130 L Potassium 5.2 H Chloride Carbon Dioxide BUN 45 H Creatinine 1.06 H Glucose 150 H POC Glucose (mg/dL) Osmolality Calcium AST 37 H Troponin I 11/30/23 11/30/23 12/01/23 21:31 23:24 05:27 WBC 12.7 H RBC 3.47 L Hgb 11.2 L MCV 101.4 H Neutrophils # 10.2 H PT INR APTT Sodium Potassium Chloride Carbon Dioxide BUN Creatinine Glucose POC Glucose (mg/dL) 151 H Osmolality Calcium AST Troponin I 1.820 H* 12/01/23 12/02/23 12/02/23 05:27 06:50 06:50 WBC RBC 3.63 L Hgb MCV Neutrophils # PT INR APTT Sodium 130 L 127 L Potassium Chloride 97 L Carbon Dioxide BUN 39 H 28 H Creatinine Glucose 123 H 105 H POC Glucose (mg/dL) Osmolality Calcium AST Troponin I 12/03/23 12/03/23 12/03/23 06:29 06:29 10:07 WBC RBC 3.44 L Hgb 11.2 L MCV 102.9 H Neutrophils # PT INR APTT Sodium 121 L Potassium Chloride 93 L Carbon Dioxide BUN 23 H Creatinine Glucose 106 H POC Glucose (mg/dL) Osmolality 272 L Calcium AST Troponin I 12/03/23 12/03/23 12/03/23 13:41 15:26 17:26 WBC RBC Hgb MCV Neutrophils # PT INR APTT Sodium 121 L 121 L Potassium Chloride 95 L Carbon Dioxide 19 L BUN 23 H Creatinine Glucose 134 H POC Glucose (mg/dL) 132 H Osmolality Calcium AST Troponin I 12/03/23 12/04/23 20:01 00:30 WBC RBC Hgb MCV Neutrophils # PT INR APTT Sodium 120 L 120 L Potassium Chloride 93 L 92 L Carbon Dioxide BUN 21 H 21 H Creatinine Glucose 115 H 105 H POC Glucose (mg/dL) Osmolality Calcium 8.3 L AST Troponin I - Diagnostic Findings Chest x-ray: image reviewed Assessment and Plan Assessment: Acute ST elevation AL, initial heart catheterization demonstrated severe two- vessel coronary artery disease with 90% stenosis involving the proximal LAD and 60 to 70% stenosis involving the RCA. Status post stent to the LAD on 11/30/2023. Taken back to the [facility]oc [facility] 12/03/2023, and did undergo PCI/stenting of the RCA. Following the procedure she became acutely confused, and the code stroke protocol was initiated. Acute 1.8 cm hemorrhage of the left temporal lobe, there is effacement of sulcal of the inferior left parietal and occipital lobe suggesting developing underlying infarct. Follow-up nonenhanced brain CT redemonstrates the 1.7 x 0.8 cm left temporal intraparenchymal hemorrhage slightly decreased in size when compared from prior exam. There was some associated vasogenic edema involving the adjacent left temporal lobe parenchyma. Patient's family is elected conservative management. They have refused transfer to tertiary care center. Multivessel coronary artery disease, as mentioned above Heart failure with reduced ejection fraction, echocardiogram estimates a severel y reduced left ventricular ejection fraction of 35%. Worsening hyponatremia, suspect SIADH History of right lower extremity DVT, recently initiated on Xarelto outpatient History of hypertension History of hyperlipidemia History of hypothyroidism Obesity, with a BMI 40 kg/m Plan: Patient was seen and evaluated. Medical neurology is following There is another follow-up brain CT ordered this morning Continue neurochecks per protocol No reported seizure activity. Avoid hypertension Continue to hold Xarelto and anticoagulation. Patient's family reportedly refused reversal agents. Hyponatremia is being managed by nephrology At this point, patient is hemodynamically stable. I have reached out to Cassandra, the patient's daughter and next of kin, to discuss her mother's condition. I have answered all questions. She has elected conservative management. They have refused transfer to tertiary care center. She is a DO NOT RESUSCITATE/DO NOT INTUBATE. She is adamant that her mother would never want to be intubated and placed on the mechanical ventilator. If there is any further deterioration in her status, they are telling me that she would want comfort care measures. This was reportedly discussed with the patient when she was oriented and had decision making capacity. Overall prognosis is poor. I have personally seen and examined the patient, performed the documentation and the assessment and plan as written. Number of minutes spent on the visit:20 Is a joint evaluation that was done along with the nurse practitioner. The patient was seen and evaluated and the case was also discussed with the family. The family has opted a DNR/DNI CODE STATUS. Based on that, the patient was not transferred to the intensive care unit. The patient was not given Kcentra. M eanwhile,On today's evaluation of 12/04/2023, a follow-up CAT scan of the brain that was done on 12/04/2023 showed interval decrease in size of the left temporal lobe and intraparenchymal hemorrhage. Patient was noted to have some increased cough and congestion. The chest x-ray was done that shows cardiomegaly. No airspace disease or consolidation at this point in time. The patient is currently on room air oxygen. Her WBC count 11.6 with a hemoglobin of 9.8. BUN is at 22 with a creatinine of 0.8. The patient remains on IV Unasyn considering the possibility of an aspiration pneumonia that occurred during the cardiac catheterization. She remains on Keppra. No seizure activity has been n oted. Neurology is on the case. No need for ICU transfer at this point in time. Will continue to monitor this patient on the medical floor. Time with Patient: Greater than 30
--- NOTE | 2023-12-04 08:48 | P.CNNES ---
History of Present Illness Consult date: 12/03/23 Requesting physician: Keya Lux Reason for Consult: Postcardiac catheterization slurred speech suspect CVA History of Present Illness: Patient is a 88-year-old right-handed female was brought to the hospital by ambulance 3 days ago, on 11/30/2023 for a fall. Patient has mentioned that she was trying to get from the couch to the chair when her legs gave out. The patient stated that she fell to her buttocks but did not hit her head. There was no loss of consciousness. Patient was complaining of mild chest discomfort rating at a 4/10 scale. Patient mentioned that the chest discomfort started when she was trying to attempt to get off the floor herself about half hour prior to EMS arrival. Patient does take Xarelto. Twelve-lead EKG showed ST elevation and depression noted in 12 leads. Her vitals were blood pressure 180/84 pulse rate 102, respiration 18 saturation 99%, blood sugar 144 and temperature 98.1. Patient was diagnosed with acute UT. Patient underwent cardiac catheterization, which revealed 95% stenosis involving proximal LAD and a 60 to 70% stenosis involving right CA. Patient underwent successful stenting of the proximal LAD using drug-eluting stent. Patient apparently was acting "off" yesterday afternoon. She was conversational, but somewhat "disjointed" as per family statement, sometimes not making sense. Although her family members were there, but she would ask for this family members. She has been somewhat very quiet, subdued, not engaging in conversation and not connecting to conversation. Patient had a second cardiac catheterization, in which she underwent successful stenting of the mid RCA using drug-eluting stent this morning. After she came back from catheterization today, she was much more confused, not able to name, and the confusion got much worse. She vomited after cardiac catheterization. Also has been complaining of some headache. She could not n ora objects like "towel". Patient has been complaining of some headache yesterday and asked for Tylenol today also. Stat CT head was performed, which revealed 1.8 cm hemorrhage left temporal lobe. There is effacement of sulci of the inferior left parietal and occipital lobe suggesting developing underlying infarct. I personally reviewed CT head, and there is only evidence of intraparenchymal hemorrhage with no evidence of ischemic CVA. Patient has received last dose of Xarelto 20 mg last night at 6:30 PM, aspirin and Plavix this morning at 6:26 AM. Patient also had received 4000 units of heparin IV during the procedure today. Patient has been suffering from falls, in which her legs just crumbled down and she falls to her buttocks. Does not fall sideways front or back. In April 2023, she had a similar fall and the troponins went up. She has been using walker since then. No history of tobacco or alcohol use. She is prediabetic, does have hypertension and also have peripheral neuropathy. Patient had undergone vein ablation for "reflux" and poor circulation on 11/16/2023. She was found to have small DVT for which she was placed on Xarelto on 11/22/2023. 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 She still gets some injections but the vision is not back to normal. Blood test shows WBC 10.2 hemoglobin 11.2 and platelets are normal 267. Sodium 121, potassium 4.9, normal renal functions. UA was negative on 12/01/2023. Review of Systems As mentioned in detail in review of systems. All pertinent positive and negative mentioned in the HPI. Otherwise negative. No fever or chills. Past Medical History Past Medical History: Deep Vein Thrombosis (DVT), Hyperlipidemia, Hypertension, Thyroid Disorder Additional Past Medical History / Comment(s): recent blood in urine-now resolved History of Any Multi-Drug Resistant Organisms: None Reported Past Surgical History: Bladder Surgery, Hysterectomy Additional Past Surgical History / Comment(s): bladder biopsy 2 weeks ago, colonoscopy Past Anesthesia/Blood Transfusion Reactions: No Reported Reaction Past Psychological History: No Psychological Hx Reported Smoking Status: Never smoker Past Alcohol Use History: None Reported Past Drug Use History: None Reported - Past Family History Mother Family Medical History: No Reported History Medications and Allergies Home Medications Medication Instructions Recorded Confirmed Type Atorvastatin [Lipitor] 10 mg PO DAILY 06/30/19 12/01/23 History Levothyroxine Sodium [Synthroid] 25 mcg PO DAILY 06/30/19 12/01/23 History hydroCHLOROthiazide [Hydrodiuril] 25 mg PO DAILY 06/30/19 12/01/23 History Metoprolol Tartrate [Lopressor] 12.5 mg PO BID 12/01/23 12/01/23 History Rivaroxaban [Xarelto] 20 mg PO DAILY 12/01/23 12/01/23 History lisinopriL [Zestril] 10 mg PO BID 12/01/23 12/01/23 History Allergies Allergy/AdvReac Type Severity Reaction Status Date / Time Sulfa (Sulfonamide Allergy hot all Verified 12/01/23 10:59 Antibiotics) over Physical Examination - Vital Signs Vital Signs: Vital Signs Temp Pulse Resp BP Pulse Ox 12/03/23 14:30 53 L 127/57 12/03/23 13:49 56 L 12/03/23 13:30 56 L 132/68 12/03/23 13:00 55 L 137/74 12/03/23 12:30 57 L 127/54 12/03/23 12:06 53 L 16 140/67 92 L 12/03/23 07:44 98.3 F 56 L 20 123/63 98 12/03/23 04:00 72 16 127/72 94 L 12/03/23 00:00 98.4 F 73 18 109/63 93 L 12/02/23 20:00 98.1 F 64 18 118/63 95 Intake and Output 12/03/23 12/03/23 12/03/23 06:59 14:59 22:59 Intake Total 50 Output Total 100 Balance -50 Intake: IV 50 Output: Emesis 100 Other: Voiding Method Bedside Commode Bedside Commode # Voids 2 Patient is an elderly female, in no acute distress. Patient is alert awake. Patient is having some difficulty with the speech with the fluency although she can still express. Patient instead of saying knuckles, said "knees". She was able to name ear but not the earlobe. She was able to repeat the sentence. No obvious dysarthria. Attention, concentration is decreased and fund of knowledge slightly limited at this time. On cranial nerve examination, pupils are equal, round and reacting to light, visual farmer are full on confrontation, with no neglect on double simultaneous stimulation. Extraocular muscles are intact with no nystagmus. Face is symmetric, tongue protrudes to the midline. Palatal elevation and sensation normal, hearing and shoulder shrug normal, facial sensation normal. On muscle strength testing, there is no pronator drift and the strength is n ormal in arms and legs distally and proximally, except hip flexion which is 4 bilaterally. Ankle dorsiflexion 5. Deep tendon reflexes are symmetric 1 in the arms and legs and plantars are possible upgoing bilaterally. Sensory to touch is equal, and checking for neglect was somewhat difficult noe use of her confusion. Cerebellar function showed no ataxia for [id number] testing. No dysdiado chokinesia. No ataxia for [id number] testing on either side. Tone and bulk of muscles normal. Gait deferred.. On general examination, there is no carotid bruit or murmur, S1-S2 audible. Chest is clear on consultation. Abdomen is soft nontender. No organomegaly, bowel sounds present. Peripheral pulses are present. No peripheral edema. Results - Laboratory Findings CBC and BMP: 12/03/23 06:29 12/04/23 00:30 Abnormal Lab Findings: Abnormal Labs 11/30/23 11/30/23 11/30/23 21:31 21:31 21:31 WBC 11.2 H RBC Hgb MCV 100.3 H Neutrophils # PT 13.6 H INR 1.3 H APTT 35.4 H Sodium 130 L Potassium 5.2 H Chloride BUN 45 H Creatinine 1.06 H Glucose 150 H POC Glucose (mg/dL) AST 37 H Troponin I 11/30/23 11/30/23 12/01/23 21:31 23:24 05:27 WBC 12.7 H RBC 3.47 L Hgb 11.2 L MCV 101.4 H Neutrophils # 10.2 H PT INR APTT Sodium Potassium Chloride BUN Creatinine Glucose POC Glucose (mg/dL) 151 H AST Troponin I 1.820 H* 12/01/23 12/02/23 12/02/23 05:27 06:50 06:50 WBC RBC 3.63 L Hgb MCV Neutrophils # PT INR APTT Sodium 130 L 127 L Potassium Chloride 97 L BUN 39 H 28 H Creatinine Glucose 123 H 105 H POC Glucose (mg/dL) AST Troponin I 12/03/23 12/03/23 12/03/23 06:29 06:29 13:41 WBC RBC 3.44 L Hgb 11.2 L MCV 102.9 H Neutrophils # PT INR APTT Sodium 121 L Potassium Chloride 93 L BUN 23 H Creatinine Glucose 106 H POC Glucose (mg/dL) 132 H AST Troponin I Assessment and Plan Assessment: * Acute left temporal lobe intraparenchymal hemorrhage 1.7 x 0.8 cm. No significant mass effect or midline shift. No evidence of ischemic infarction. Hemorrhage likely related to antiplatelets/anticoagulants. Patient's NIH stroke scale is 2 mainly related to aphasia. * Altered mental status, with some expressive aphasia, likely due to above. Also some component of hyponatremia contributing to AMS. * Acute UT, status post cardiac catheterization and cardiac stenting times twice (11/30/2023 and 12/03/2023). * Hyponatremia, suspect SIADH. * History of right lower extremity DVT, on Xarelto since 11/22/2023 * Hypertension * Prediabetes * Hyperlipidemia * Obesity * CHF with EF 35% Plan: * CT scan of head was reviewed, and also reviewed it with patient and her family . * Patient is currently on Xarelto, and dual antiplatelet medications. Recommend reversing Xarelto with Kcentra. * Patient had recent acute UT and cardiac stents, therefore needs to be on antiplatelet medication. * Discussed with patient's family in detail about potential transfer to higher level of care, for neurosurgical consultation, if the hemorrhage gets worse. Patient is a no code, and after informing her, she completely declined any operative options. Therefore patient and her family members decided conservative management in [facility]. * We will repeat CT scan of head at 10 PM today, and then in the morning as well. * Patient will be started on Keppra 500 mg IV twice daily for seizure prophylaxis. * EEG in the morning. * 2D echo from 12/01/2023 revealed severe left ventricular systolic dysfunction with EF 35%. Akinetic apex. Mild aortic and tricuspid regurgitation. Mildly increased left atrial volume. * DVT prophylaxis, SCDs. * Patient critically sick. Discussed with family members in detail. * Thank you for the consultation. Time with Patient: Greater than 30
--- NOTE | 2023-12-04 10:49 | CT ---
EXAMINATION TYPE: CT brain wo con CT DLP: 1126.2 mGycm, Automated exposure control for dose reduction was used. DATE OF EXAM: 12/04/2023 10:36 AM COMPARISON: 12/03/2023. CLINICAL INDICATION:Female, 88 years old with history of Hemorrhage, hemorrhage f/u TECHNIQUE: Brain: Axial CT images of the brain were obtained with coronal and sagittal reformats created and rev iewed. Contrast used: None. Oral contrast used: None. FINDINGS: Brain: Extra-axial spaces: No abnormal extra-axial fluid collections. Ventricular system: Dilatation in proportion to cerebral atrophy. Cerebral parenchyma: Left temporal lobe and temporal intraparenchymal hemorrhage measuring now 16 x 9 mm, previously 20 x 11 mm. No new hemorrhage identified. The leija-white junction is well differentia rickey. Scattered hypoattenuating areas are seen within the white matter. Cerebellum: Unremarkable. Mass effect: No evidence of midline shift. Intracranial vasculature: Atherosclerotic calcifications of the intracranial vessels. Soft tissues: Normal. Calvarium/osseous structures: No depressed skull fracture. Paranasal sinuses and mastoid air cells: Mild scattered paranasal sinus disease. Visualized orbits: Orbital contents are intact. IMPRESSION: 1. Interval decrease in size of left temporal lobe and intraparenchymal hemorrhage. 2. Nonspecific white matter changes and generalized atrophy changes.
--- NOTE | 2023-12-04 11:47 | P.PN ---
Subjective patient is seen for follow-up for hyponatremia. Sodium was supposed to be drawn at 8 AM and I do not see it back yet. IV fluids were discontinued yesterday as serum sodium remained at 120. Urine osmolality was elevated at 566 and patient received a dose of Samsca at 3 AM. Patient remains confused and is not communicating much. Family is present at bedside and there is consideration for possible hospice/comfort care. Objective - Vital Signs Vital signs: Vital Signs Temp 98.4 F 12/04/23 03:59 Pulse 80 12/04/23 09:05 Resp 16 12/04/23 09:05 BP 93/54 12/04/23 09:05 Pulse Ox 96 12/04/23 09:05 FiO2 Intake & Output 12/03/23 12/04/23 12/04/23 18:59 06:59 18:59 Intake Total 50 Output Total 425 1400 Balance -375 -1400 Intake: IV 50 Output: Urine 325 1400 Emesis 100 Other: Voiding Method Bedside Commode Indwelling Catheter Indwelling Catheter - Exam patient is awake, comfortable, no acute distress. Patient opens eyes but does not communicate much. Examination of the heart S1 and S2 Examination of the lungs bilateral breath sounds are heard Abdomen is soft nontender Examination of lower extremities shows trace edema bilaterally Moving all 4 extremities. - Labs CBC & Chem 7: 12/03/23 06:29 12/04/23 00:30 Labs: Abnormal Lab Results - Last 24 Hours (Table) 12/03/23 12/03/23 12/03/23 Range/Units 10:07 13:41 15:26 Sodium 121 L (137-145) mmol/L Chloride (98-107) mmol/L Carbon Dioxide (22-30) mmol/L BUN (7-17) mg/dL Glucose (74-99) mg/dL POC Glucose (mg/dL) 132 H (70-110) mg/dL Osmolality 272 L (275-295) mOsm/kg Calcium (8.4-10.2) mg/dL 12/03/23 12/03/23 12/04/23 Range/Units 17:26 20:01 00:30 Sodium 121 L 120 L 120 L (137-145) mmol/L Chloride 95 L 93 L 92 L (98-107) mmol/L Carbon Dioxide 19 L (22-30) mmol/L BUN 23 H 21 H 21 H (7-17) mg/dL Glucose 134 H 115 H 105 H (74-99) mg/dL POC Glucose (mg/dL) (70-110) mg/dL Osmolality (275-295) mOsm/kg Calcium 8.3 L (8.4-10.2) mg/dL Assessment and Plan Assessment: 1. 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 Status post Samsca at 3 AM. Sodium was supposed to be drawn at 8 AM but is not back yet. We will check a stat sodium now. 2. Acute ST elevation MS status post cardiac catheterization on 11/30/2023 with stenting of LAD and status post cardiac catheterization today with stenting of RCA. 3. Ischemic cardiomyopathy, ejection fraction 35% 4. Hypertension, maintained on REGINALD inhibitor's. 5. Hypothyroidism 6. Acute CVA with left temporal bleed Plan: repeat sodium now. Expect improvement as patient received Samsca at about 3:15 AM. Continue off of IV fluids.
--- NOTE | 2023-12-04 12:28 | XR ---
EXAMINATION TYPE: XR chest 1V portable DATE OF EXAM: 12/04/2023 12:23 PM CLINICAL INDICATION:Female, 88 years old with history of aspiration; [facility] COMPARISON: Chest radiographs from 11/30/2023 TECHNIQUE: XR chest 1V portable Frontal view of the chest. FINDINGS: Lungs/Pleura: There is no evidence of pleural effusion, focal consolidation, or pneumothorax. Pulmonary vascularity: Unremarkable. Heart/mediastinum: Cardiomediastinal silhouette is enlarged and stable. Musculoskeletal: No acute osseous pathology. IMPRESSION: Stable exam with cardiomegaly, no obvious aspiration. Exam is limited due to patient's body habitus.
--- NOTE | 2023-12-04 12:40 | P.PN ---
Subjective Progress Note Date: 12/04/23 * 88-year-old patient with past medical history significant for deep vein thrombosis already on anticoagulation with Xarelto, history of hypertension, hypothyroid, hyperlipidemia presents to the emergency department with complaints of new onset chest pain. Patient had acute onset of chest discomfort and EMS was called. Upon presentation to ED patient was noted to have waited [place] involving anterior lateral leads. Patient underwent cardiac catheterization it showed two-vessel coronary artery disease with stenosis and LAD as well as RCA. * Workup in ER included CBC which showed WBC count of 11.2 hemoglobin 12.7 platelet count of 296. INR of 1.3 * The time of presentation initial blood work showed sodium 130, potassium 5.2 which improved to 4.4 creatinine of 1.06 which improved to 0.87, troponin of 1.82 urinalysis was done which was within normal limit * Patient underwent cardiac catheterization and was transferred to medical ICU for further manage * 12/02/23 : Patient transferred out of medical ICU, echocardiogram completed shows ejection fraction of 35%, patient remains chest pain-free, patient does complain of lower extremity paresthesias, will need outpatient follow-up probably will need nerve conduction study * 12/03/23: , blood work reviewed hemoglobin 11.2, serum chemistry revealed sodiu m 127, nephrology consulted, urine osmolality urine sodium levels ordered. Nephrology consulted chlorothiazide remain on hold, available had gone for cardiac catheterization. Will follow-up postcardiac catheterization * Postcardiac catheterization patient had a significant and went and was noted t o have altered mental status and nausea, patient had a CT head done which showed intraparenchymal hemorrhage, aspirin and Plavix was discontinued Xarelto was discontinued as well Kcentra was ordered however family deferred, CODE STATUS was changed to no code as well. Follow-up CT head has been orde red * * 12/04/23 : Patient seen and evaluated at bedside, patient is drowsy however easily arousable, continues to remain disoriented, repeat CT findings discussed with family, we will continue to follow along if patient does not improve family would like to pursue hospice PHYSICAL EXAMINATION: GENERAL: The patient is alert and oriented 1, ill appearance HEENT: Pupils are round and equally reacting to light. EOMI. CARDIOVASCULAR: S1 and S2 present. No murmurs, rubs, or gallops. PULMONARY: Chest is clear to auscultation, no wheezing or crackles. ABDOMEN: Soft, nontender, nondistended, normoactive bowel sounds. No palpable organomegaly. MUSCULOSKELETAL: No joint swelling or deformity. EXTREMITIES: No cyanosis, clubbing, or pedal edema. NEUROLOGICAL: Disoriented neurological exam limited secondary to mentation Assessment and plan * ST elevated [place] with coronary artery disease * Intraparancymal hemorrhage involving left temporal lobe 1.8 cm * Left parietal and occipital lobe infarct * Aspiration pneumonia * Ischemic cardiomyopathy with acute systolic congestive heart failure * S/p cardiac catheterization * Acute hyponatremia * Hx of DVT * Hypertension * Hyperlipidemia * Leukocytosis likely reactive * In regards to intraparenchymal hemorrhage, neurology consulted, serial CTs ordered prognosis remains guarded, continue Keppra * For coronary artery disease continue patient was on antiplatelet aspirin, Plavix discontinued, Lipitor, repeat cardiac catheterization 12/02 PCI of RCA, family does understand increased risk of acute coronary syndrome again post di scontinuation of antiplatelet * In regards to history of hypertension continue patient on lisinopril, hydrochlorothiazide on hold secondary to hyponatremia * In regards to hyponatremia urine osmolality urine sodium serum osmolality ordered, nephrology following * Regards to hyperlipidemia continue Lipitor * In regards to leukocytosis monitor for fever, likely reactive resolved * In regards to aspiration pneumonia, start Unasyn * In regards to DVT patient was on Xarelto prior to admission which has been discontinued secondary to intracranial bleed Objective - Vital Signs Vital signs: Vital Signs Temp 98.4 F 12/04/23 03:59 Pulse 80 12/04/23 09:05 Resp 16 12/04/23 09:05 BP 93/54 12/04/23 09:05 Pulse Ox 96 12/04/23 09:05 FiO2 Intake & Output 12/03/23 12/04/23 12/04/23 18:59 06:59 18:59 Intake Total 50 Output Total 425 1400 Balance -375 -1400 Intake: IV 50 Output: Urine 325 1400 Emesis 100 Other: Voiding Method Bedside Commode Indwelling Catheter Indwelling Catheter - Labs CBC & Chem 7: 12/03/23 06:29 12/04/23 00:30 Labs: Abnormal Lab Results - Last 24 Hours (Table) 12/03/23 12/03/23 12/03/23 Range/Units 10:07 13:41 15:26 Sodium 121 L (137-145) mmol/L Chloride (98-107) mmol/L Carbon Dioxide (22-30) mmol/L BUN (7-17) mg/dL Glucose (74-99) mg/dL POC Glucose (mg/dL) 132 H (70-110) mg/dL Osmolality 272 L (275-295) mOsm/kg Calcium (8.4-10.2) mg/dL 12/03/23 12/03/23 12/04/23 Range/Units 17:26 20:01 00:30 Sodium 121 L 120 L 120 L (137-145) mmol/L Chloride 95 L 93 L 92 L (98-107) mmol/L Carbon Dioxide 19 L (22-30) mmol/L BUN 23 H 21 H 21 H (7-17) mg/dL Glucose 134 H 115 H 105 H (74-99) mg/dL POC Glucose (mg/dL) (70-110) mg/dL Osmolality (275-295) mOsm/kg Calcium 8.3 L (8.4-10.2) mg/dL
[2023-12-04 12:43] LABS: African American GFR (CKD) 69 (>60 ml/min/1.73 sqM); Anion Gap 6 mmol/L; Blood Urea Nitrogen 22 mg/dL (7-17); Calcium 8.7 mg/dL (8.4-10.2); Carbon Dioxide 26 mmol/L (22-30); Chloride 93 mmol/L (98-107); Glucose 96 mg/dL (74-99); Non-African American GFR(CKD) 60 (>60 ml/min/1.73 sqM); Potassium 4.3 mmol/L (3.5-5.1); Sodium 125 mmol/L (137-145)
[2023-12-04 12:56] LABS: HCT 29.7 % (34.0-46.0); HGB 9.8 gm/dL (11.4-16.0); MCH 32.2 pg (25.0-35.0); Mean Platelet Volume 7.6; Platelet Count 256 k/uL (150-450); RBC 3.05 m/uL (3.80-5.40); RDW 12.7 % (11.5-15.5); WBC 11.6 k/uL (3.8-10.6)
[2023-12-04 13:03] LABS: MCV 97.5 fL (80.0-100.0)
--- NOTE | 2023-12-04 13:48 | P.PN ---
Subjective HISTORY OF PRESENT ILLNESS: This is an 88-year-old female with past medical history of hypertension, DVT in the right leg following venous ablation. Patient presented to the hospital with chest pain/pressure. EKG showed ST segment elevation and 1 and aVL suggestive of acute anterior lateral myocardial infarction. Patient underwent emergent c ardiac catheterization which revealed two-vessel coronary artery disease with a focal 95% stenosis involving the proximal LAD and 60 to 70% involving the right coronary artery. Patient subsequently underwent successful stenting of the proximal LAD artery. 12/01 Due to the significant disease involving the right coronary artery, patient will be scheduled for IFR and intervention on Sunday with Dr. Woodward. Patient and daughter have been updated and all questions have been answered. We will try to obtain records from [facility] on for cardiac catheterization report. Patient is on Xarelto long-term for DVT and we will plan to hold the morning dose on Sunday only. Blood pressure 111/77, heart rate in the 70s and 80s. Pulse ox 96% on room air. Repeat blood work reveals hemoglobin 11.6, WBC improved to 10.1. Sodium 127, potassium 4.5, BUN 28 creatinine 0.8. Echocardiogram reveals EF of 30 to 35%. Mildly increased left ventricular diastolic volume. Moderately increased left ventricular systolic volume. Moderately decreased left ventricular ejection fraction. Akinetic ballooning apex. Patient was previously following with a office manager out of [facility] and plans to follow-up with Dr. Mook Cortez at the time of discharge. 12/04/2023 Patient is status post repeat cardiac catheterization yesterday with Dr. Woodward. FFR of the RCA was performed which came in to be ischemic. Patient underwent stenting of the mid RCA. Post cardiac cath, the patient developed altered mental status. She underwent CT of the head which revealed 1.8 cm hemorrhage of the left temporal lobe. Patient's Xarelto, aspirin, and Plavix were all discontinued. Patient's family elected to continue with conservative management and declined transfer to tertiary care center. Repeat CAT scan this morning revealed interval decrease in size of left temporal lobe and interparenchymal hemorrhage. The patient is examined this morning at the bedside. Patient's family states that she has been lethargic most of the day. Patient denies any chest pain or pressure. She denies any shortness of breath. Patient responds "yeah" to majority of questions asked, even if the question is not a yes/no qu estion. Telemetry reveals sinus mechanism in the 80s. PHYSICAL EXAM: VITAL SIGNS: Reviewed. GENERAL: Well-developed in no acute distress. NECK: Supple. No JVD or thyromegaly LUNGS: Respirations even and unlabored. Lungs essentially clear to auscultation bilaterally. HEART: Regular rate and rhythm. S1 and S2 heard. EXTREMITIES: Normal range of motion. No clubbing or cyanosis. Peripheral puls es intact. No lower extremity edema ASSESSMENT: Acute anterior lateral STEMI, status post PCI of the proximal LAD 11/30/2023 and PCI of the mid RCA on 12/03/2023 Ischemic cardiomyopathy, EF 30 to 35% Acute left temporal lobe intraparenchymal hemorrhage Altered mental status with expressive aphasia Hyponatremia Hypertension Hyperlipidemia History of DVT PLAN: Case discussed with Dr. Pool who is agreeable to resuming aspirin and Plavix Continue to hold Xarelto Continue additional cardiac medications From a cardiac standpoint, would advise against platelet infusion due to recent stenting requiring dual antiplatelet therapy Continue to monitor sodium levels. Repeat BMP in a.m. Further recommendations pending patient course Nurse practitioner note has been reviewed by physician. Signing provider agrees with the documented findings, assessment, and plan of care documented by MEDICAL STAFF SERVICES COORDINATOR as a scribe. Objective - Vital Signs Vital signs: Vital Signs Temp 98.4 F 12/04/23 03:59 Pulse 80 12/04/23 09:05 Resp 16 12/04/23 11:46 BP 111/63 12/04/23 11:46 Pulse Ox 92 L 12/04/23 11:46 FiO2 Intake & Output 12/03/23 12/04/23 12/04/23 18:59 06:59 18:59 Intake Total 50 Output Total 425 1400 Balance -375 -1400 Intake: IV 50 Output: Urine 325 1400 Emesis 100 Other: Voiding Method Bedside Commode Indwelling Catheter Indwelling Catheter # Bowel Movements 1 - Labs CBC & Chem 7: 12/04/23 11:31 12/04/23 11:43 Labs: Abnormal Lab Results - Last 24 Hours (Table) 12/03/23 12/03/23 12/03/23 Range/Units 10:07 13:41 15:26 WBC (3.8-10.6) k/uL RBC (3.80-5.40) m/uL Hgb (11.4-16.0) gm/dL Hct (34.0-46.0) % Sodium 121 L (137-145) mmol/L Chloride (98-107) mmol/L Carbon Dioxide (22-30) mmol/L BUN (7-17) mg/dL Glucose (74-99) mg/dL POC Glucose (mg/dL) 132 H (70-110) mg/dL Osmolality 272 L (275-295) mOsm/kg Calcium (8.4-10.2) mg/dL 12/03/23 12/03/23 12/04/23 Range/Units 17:26 20:01 00:30 WBC (3.8-10.6) k/uL RBC (3.80-5.40) m/uL Hgb (11.4-16.0) gm/dL Hct (34.0-46.0) % Sodium 121 L 120 L 120 L (137-145) mmol/L Chloride 95 L 93 L 92 L (98-107) mmol/L Carbon Dioxide 19 L (22-30) mmol/L BUN 23 H 21 H 21 H (7-17) mg/dL Glucose 134 H 115 H 105 H (74-99) mg/dL POC Glucose (mg/dL) (70-110) mg/dL Osmolality (275-295) mOsm/kg Calcium 8.3 L (8.4-10.2) mg/dL 12/04/23 12/04/23 Range/Units 11:31 11:43 WBC 11.6 H (3.8-10.6) k/uL RBC 3.05 L (3.80-5.40) m/uL Hgb 9.8 L (11.4-16.0) gm/dL Hct 29.7 L (34.0-46.0) % Sodium 125 L (137-145) mmol/L Chloride 93 L (98-107) mmol/L Carbon Dioxide (22-30) mmol/L BUN 22 H (7-17) mg/dL Glucose (74-99) mg/dL POC Glucose (mg/dL) (70-110) mg/dL Osmolality (275-295) mOsm/kg Calcium (8.4-10.2) mg/dL
[2023-12-04] MEDS: CLOPIDOGREL 75 MG TAB PO SCH (14:13)
[2023-12-04] MEDS: ASPIRIN 81 MG PO SCH (14:13)
--- NOTE | 2023-12-04 16:24 | P.CONS ---
History of Present Illness - Reason for Consult Consult date: 12/04/23 recommendation for anticoag reversal Requesting physician: Qing Pool - Chief Complaint chest pain - History of Present Illness Patient is a 88-year-old patient with past medical history significant for deep vein thrombosis already on anticoagulation with Xarelto, history of hypertension, hypothyroid, and hyperlipidemia. Consult was placed for recommendations on anticoagulation reversal. Patient presented to the emergency department with complaints of new onset chest pain. Upon presentation to ED patient was noted to have abnormal EKG and elevated troponin and underwent two cardiac catheterizations, showing two-vessel coronary artery disease with stenosis and LAD as well as RCA with stent placement. She was started on plavix and aspirin. She began to experience some mild confusion prior to second cath, family stating sometimes patient was not making sense. After second cath patient was noted to be more confused at which time stat CT head was obtained which revealed 1.8 cm hemorrhage of the left temporal lobe, with effacement of sulci of the inferior left parietal and occipital lobes. Patient's last dose of Xarelto was given on 12/01 at 6:30 PM, and aspirin and Plavix was last given on 12/02 at 6:26 AM, and have since been discontinued. Kcentra was ordered but family had declined medication. Repeat CT head last night revealed 1.7 x 0.8 cm left temp oral lobe intraparenchymal hemorrhage slightly decreased in size from prior exam. CBC revealed hemoglobin 11.2, platelets 267,000. Creatinine 0.72, GFR 77. Hyponatremia noted, with sodium of 120 today. Samsca given, nephrology following. Coags obtained on 12/02 WNL. At today's visit patient does respond to verbal and tactile stimuli but conversation remains confused and is not answering questions appropriately. Repeat CT head and EEG has been ordered for today. Family is considering comfort care measures at this time. Review of Systems 10 point ROS is negative except as stated in the HPI Past Medical History Past Medical History: Deep Vein Thrombosis (DVT), Hyperlipidemia, Hypertension, Thyroid Disorder Additional Past Medical History / Comment(s): recent blood in urine-now resolved History of Any Multi-Drug Resistant Organisms: None Reported Past Surgical History: Bladder Surgery, Hysterectomy Additional Past Surgical History / Comment(s): bladder biopsy 2 weeks ago, colonoscopy Past Anesthesia/Blood Transfusion Reactions: No Reported Reaction Past Psychological History: No Psychological Hx Reported Smoking Status: Never smoker Past Alcohol Use History: None Reported Past Drug Use History: None Reported - Past Family History Mother Family Medical History: No Reported History Medications and Allergies Home Medications Medication Instructions Recorded Confirmed Type Atorvastatin [Lipitor] 10 mg PO DAILY 06/30/19 12/01/23 History Levothyroxine Sodium [Synthroid] 25 mcg PO DAILY 06/30/19 12/01/23 History hydroCHLOROthiazide [Hydrodiuril] 25 mg PO DAILY 06/30/19 12/01/23 History Metoprolol Tartrate [Lopressor] 12.5 mg PO BID 12/01/23 12/01/23 History Rivaroxaban [Xarelto] 20 mg PO DAILY 12/01/23 12/01/23 History lisinopriL [Zestril] 10 mg PO BID 12/01/23 12/01/23 History Allergies Allergy/AdvReac Type Severity Reaction Status Date / Time Sulfa (Sulfonamide Allergy hot all Verified 12/01/23 10:59 Antibiotics) over Physical Exam Vitals: Vital Signs Temp Pulse Resp BP Pulse Ox 12/04/23 11:46 16 111/63 92 L 12/04/23 09:05 80 16 93/54 96 12/04/23 03:59 98.4 F 83 18 128/56 94 L 12/03/23 23:38 99.3 F 61 18 119/60 99 12/03/23 19:57 99.0 F 78 16 122/56 96 12/03/23 18:53 60 110/63 12/03/23 15:30 97.9 F 60 16 132/57 99 12/03/23 14:30 53 L 127/57 12/03/23 13:49 56 L 12/03/23 13:30 56 L 132/68 Intake and Output 12/03/23 12/04/23 12/04/23 22:59 06:59 14:59 Output Total 325 1400 Balance -325 -1400 Output: Urine 325 1400 Other: Voiding Method Indwelling Catheter Indwelling Catheter Indwelling Catheter # Bowel Movements 1 - Constitutional General appearance: no acute distress - Respiratory Respiratory: bilateral: CTA - Cardiovascular Rhythm: regular Heart sounds: normal: S1, S2 - Gastrointestinal General gastrointestinal: soft, no tenderness - Integumentary Integumentary: no cyanotic - Neurologic confused, but respods to vernal stimuli. Neuro exam limited as pt could not follow commands Results CBC & Chem 7: 12/04/23 11:31 12/04/23 15:08 Labs: Abnormal Lab Results - Last 24 Hours (Table) 12/03/23 12/03/23 12/03/23 Range/Units 10:07 13:41 15:26 WBC (3.8-10.6) k/uL RBC (3.80-5.40) m/uL Hgb (11.4-16.0) gm/dL Hct (34.0-46.0) % Sodium 121 L (137-145) mmol/L Chloride (98-107) mmol/L Carbon Dioxide (22-30) mmol/L BUN (7-17) mg/dL Glucose (74-99) mg/dL POC Glucose (mg/dL) 132 H (70-110) mg/dL Osmolality 272 L (275-295) mOsm/kg Calcium (8.4-10.2) mg/dL 12/03/23 12/03/23 12/04/23 Range/Units 17:26 20:01 00:30 WBC (3.8-10.6) k/uL RBC (3.80-5.40) m/uL Hgb (11.4-16.0) gm/dL Hct (34.0-46.0) % Sodium 121 L 120 L 120 L (137-145) mmol/L Chloride 95 L 93 L 92 L (98-107) mmol/L Carbon Dioxide 19 L (22-30) mmol/L BUN 23 H 21 H 21 H (7-17) mg/dL Glucose 134 H 115 H 105 H (74-99) mg/dL POC Glucose (mg/dL) (70-110) mg/dL Osmolality (275-295) mOsm/kg Calcium 8.3 L (8.4-10.2) mg/dL 12/04/23 12/04/23 Range/Units 11:31 11:43 WBC 11.6 H (3.8-10.6) k/uL RBC 3.05 L (3.80-5.40) m/uL Hgb 9.8 L (11.4-16.0) gm/dL Hct 29.7 L (34.0-46.0) % Sodium 125 L (137-145) mmol/L Chloride 93 L (98-107) mmol/L Carbon Dioxide (22-30) mmol/L BUN 22 H (7-17) mg/dL Glucose (74-99) mg/dL POC Glucose (mg/dL) (70-110) mg/dL Osmolality (275-295) mOsm/kg Calcium (8.4-10.2) mg/dL CT Scan - head: report reviewed Assessment and Plan (1) Intracranial hemorrhage Current Visit: Yes Status: Acute Priority: High Code(s): I62.9 - NONTRAUMATIC INTRACRANIAL HEMORRHAGE, UNSPECIFIED SNOMED Code(s): 0961238 (2) CVA (cerebral vascular accident) Current Visit: Yes Status: Acute Priority: High Code(s): I63.9 - CEREBRAL INFARCTION, UNSPECIFIED SNOMED Code(s): 837897263 (3) ST elevation myocardial infarction (STEMI) Current Visit: Yes Status: Acute Priority: High Code(s): I21.3 - ST ELEVATION (STEMI) MYOCARDIAL INFARCTION OF [facility] SITE SNOMED Code(s): 91756750 Plan: CVA: Began to experience increasing confusion s/p cardiac cath. Has been antico agulated with xarelto, ASA, and plavix -Stat CT head was obtained which revealed 1.8 cm hemorrhage of the left temporal lobe, with effacement of sulci of the inferior left parietal and occipital lobes. Patient's last dose of Xarelto was given on 12/01 at 6:30 PM, and aspirin and Plavix was last given on 12/02 at 6:26 AM, and have since been discontinued. -Kcentra was ordered but family had declined medication. -Repeat CT head last night revealed 1.7 x 0.8 cm left temporal lobe intraparenchymal hemorrhage slightly decreased in size from prior exam. -CBC revealed hemoglobin 11.2, platelets 267,000. Creatinine 0.72, GFR 77. Coags obtained on 12/02 WNL -Had discussion with family today regarding hemorrhagic CVA and use of anticoagulation and recommendations for reversal, including risks and benefits. Xarelto has been given over 24 hours ago with normal kidney function, so medication effect should be cleared by now. Explained the effects of plavix and aspirin are irreversible, and that we recommend administering 1 dose of platelets, as anti-platelet effects can last up to 5-7 days, and by giving platelets that are unaffected by previously administered anti-platelet medications, this would decrease the risk of potential worsening of her intracranial hemorrhage. Family was agreeable with plan. 1 dose platelets have been ordered -Repeat CT head and EEG has been ordered for today. Family is considering comfort care measures at this time, but final decision has not yet been made NSTEMI: -S/p cardiac cath with stent placement -Defer management to cardiology team *After visit today, received message from primary RN, that cardiology and neurology discussed case and want to restart plavix and aspirin today, and do not feel platelets should be given. We will defer this decision to cardiology and neurology team, and family should be updated on risk vs benefits with restarting anti-platelets medications Doctor attests: I performed a history and physical examination of this patient, developed impression and plan of care. Discussed with dictator. I agree with dictators note, documented as a scribe.
[2023-12-04] MEDS: AMPICILLIN-SULBACTAM 3 GM in SODIUM CHLORIDE 0.9% 100 ML IVPB SCH (16:42)
--- NOTE | 2023-12-04 23:41 | EEG ---
ELECTROENCEPHALOGRAM REPORT PREAMBLE: This is an 88-year-old female with recent acute AR, has developed left temporal lobe intraparenchymal hemorrhage. This study is performed to evaluate for any epileptiform activity. EEG FINDINGS: This is a 21-channel digital EEG recorded with video component, utilizing 10/20 international system with referential and bipolar montages. Background consists of moderately well-developed, but not very well regulated, mixed frequencies of 4 to 6 hertz theta, intermixed with some occasional delta slowing in bihemispheric region. Background does not seem to be clearly reactive to eye opening or closing. Photic stimulation and hyperventilation were not done. No focal or generalized epileptiform activity was seen. Different stages of sleep were not seen IMPRESSION: This is an abnormal EEG due to background slowing of moderate degree. This is suggestive of generalized cerebral dysfunction as can be seen with toxic metabolic encephalopathy or related to diffuse structural brain abnormality. Clinical correlation is recommended. No epileptiform activity was seen. MMSPARKLEL / IJN: [id number] / MTDD
[2023-12-05] MEDS: TOLVAPTAN 15 MG TABLET PO ONE ×2 (06:37→18:26)
--- NOTE | 2023-12-05 10:06 | P.PN ---
Subjective Progress Note Date: 12/04/23 Patient was seen for a follow-up. Patient's both daughters and son were present today. Per patient's daughters report, patient was much better earlier, talked for about 20 minutes and was doing and talking very well. Now she is sleeping, again scattered thinking. She has been started empirically on antibiotics (Unasyn). Also has hyponatremia for which sodium tablets will be started. Objective - Vital Signs Vital signs: Vital Signs Temp 98.4 F 12/04/23 03:59 Pulse 70 12/04/23 16:32 Resp 16 12/04/23 16:32 BP 104/51 12/04/23 16:32 Pulse Ox 92 L 12/04/23 16:32 FiO2 Intake & Output 12/03/23 12/04/23 12/04/23 18:59 06:59 18:59 Intake Total 50 Output Total 425 1400 Balance -375 -1400 Intake: IV 50 Output: Urine 325 1400 Emesis 100 Other: Voiding Method Bedside Commode Indwelling Catheter Indwelling Catheter # Bowel Movements 1 - Exam Patient asleep at this time. Detailed examination deferred, as patient was doing much better earlier as per family report. - Labs CBC & Chem 7: 12/04/23 11:31 12/04/23 23:20 Labs: Abnormal Lab Results - Last 24 Hours (Table) 12/03/23 12/03/23 12/03/23 Range/Units 10:07 17:26 20:01 WBC (3.8-10.6) k/uL RBC (3.80-5.40) m/uL Hgb (11.4-16.0) gm/dL Hct (34.0-46.0) % Sodium 121 L 120 L (137-145) mmol/L Chloride 95 L 93 L (98-107) mmol/L Carbon Dioxide 19 L (22-30) mmol/L BUN 23 H 21 H (7-17) mg/dL Glucose 134 H 115 H (74-99) mg/dL Osmolality 272 L (275-295) mOsm/kg Calcium 8.3 L (8.4-10.2) mg/dL 12/04/23 12/04/23 12/04/23 Range/Units 00:30 11:31 11:43 WBC 11.6 H (3.8-10.6) k/uL RBC 3.05 L (3.80-5.40) m/uL Hgb 9.8 L (11.4-16.0) gm/dL Hct 29.7 L (34.0-46.0) % Sodium 120 L 125 L (137-145) mmol/L Chloride 92 L 93 L (98-107) mmol/L Carbon Dioxide (22-30) mmol/L BUN 21 H 22 H (7-17) mg/dL Glucose 105 H (74-99) mg/dL Osmolality (275-295) mOsm/kg Calcium (8.4-10.2) mg/dL 12/04/23 Range/Units 15:08 WBC (3.8-10.6) k/uL RBC (3.80-5.40) m/uL Hgb (11.4-16.0) gm/dL Hct (34.0-46.0) % Sodium 122 L (137-145) mmol/L Chloride (98-107) mmol/L Carbon Dioxide (22-30) mmol/L BUN (7-17) mg/dL Glucose (74-99) mg/dL Osmolality (275-295) mOsm/kg Calcium (8.4-10.2) mg/dL Assessment and Plan Assessment: * Acute left temporal lobe intraparenchymal hemorrhage 1.7 x 0.8 cm. No significant mass effect or midline shift. No evidence of ischemic infarction. Hemorrhage likely related to antiplatelets/anticoagulants. Patient's NIH s troke scale is 2 mainly related to aphasia. * Altered mental status, with some expressive aphasia, likely due to above. Also some component of hyponatremia contributing to AMS. * Acute HI, status post cardiac catheterization and cardiac stenting times twice (11/30/2023 and 12/03/2023). * Hyponatremia, suspect SIADH. Sodium down to 120. * History of right lower extremity DVT, on Xarelto since 11/22/2023 * Hypertension * Prediabetes * Hyperlipidemia * Obesity * CHF with EF 35% Plan: * Repeat CT head from this morning showed interval decrease in size of left temporal lobe and intraparenchymal hemorrhage. Nonspecific white matter changes and generalized atrophy changes. I personally reviewed CT head, agree with the findings. The intraparenchymal hemorrhage seems to be better. I reviewed CT head films with the family as well. * Patient is off Xarelto, Kcentra has been given. * Patient today developed chest pain and some EKG changes. Patient has been resumed on aspirin 81 mg and Plavix 75 mg due to cardiac stent. Benefits of DAPT outweigh the risks. Family is aware. * Patient had recent acute HI and cardiac stents, therefore needs to be on antiplatelet medication. Noteworthy is that there was no interruption of dual antiplatelet medications. 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 * We will repeat CT scan of head in a.m. and 24 hours. * Continue Keppra 500 mg IV twice daily for seizure prophylaxis. * EEG was abnormal due to background slowing of moderate degree. This is suggestive of generalized cerebral dysfunction as can be seen with toxic metabolic encephalopathy or related to diffuse structural brain abnormality. Clinical correlation is recommended. No epileptiform activity was seen. * 2D echo from 12/01/2023 revealed severe left ventricular systolic dysfunction with EF 35%. Akinetic apex. Mild aortic and tricuspid regurgitation. Mildly increased left atrial volume. * DVT prophylaxis, SCDs. * Treatment of hyponatremia/SIADH as per IM. * Discussed with family members in detail.
--- NOTE | 2023-12-05 11:10 | P.PN ---
Subjective patient is seen for follow-up for hyponatremia. sodium has improved with Samsca. Mentation is also slightly improved. Sodium 125 last night. status post repeat dose of Samsca at about 6 AM his morning. Next draw scheduled for 10 AM today. Objective - Vital Signs Vital signs: Vital Signs Temp 98.1 F 12/05/23 07:34 Pulse 71 12/05/23 07:34 Resp 16 12/05/23 07:34 BP 121/68 12/05/23 07:34 Pulse Ox 93 L 12/05/23 09:18 FiO2 Intake & Output 12/04/23 12/05/23 12/05/23 18:59 06:59 18:59 Output Total 600 250 Balance -600 -250 Output: Urine 600 250 Other: Voiding Method Indwelling Catheter Indwelling Catheter Indwelling Catheter # Bowel Movements 1 1 - Exam patient is awake, comfortable, no acute distress. Patient opens eyes but does not communicate much. Examination of the heart S1 and S2 Examination of the lungs bilateral breath sounds are heard Abdomen is soft nontender Examination of lower extremities shows trace edema bilaterally Moving all 4 extremities. - Labs CBC & Chem 7: 12/04/23 11:31 12/04/23 23:20 Labs: Abnormal Lab Results - Last 24 Hours (Table) 12/04/23 12/04/23 12/04/23 Range/Units 11:31 11:43 15:08 WBC 11.6 H (3.8-10.6) k/uL RBC 3.05 L (3.80-5.40) m/uL Hgb 9.8 L (11.4-16.0) gm/dL Hct 29.7 L (34.0-46.0) % Sodium 125 L 122 L (137-145) mmol/L Chloride 93 L (98-107) mmol/L BUN 22 H (7-17) mg/dL 12/04/23 Range/Units 23:20 WBC (3.8-10.6) k/uL RBC (3.80-5.40) m/uL Hgb (11.4-16.0) gm/dL Hct (34.0-46.0) % Sodium 125 L (137-145) mmol/L Chloride (98-107) mmol/L BUN (7-17) mg/dL Assessment and Plan Assessment: 1. Hyponatremia, secondary to SIADH with intracranial bleed. improving with Samsca. off of IV fluids. 2. Acute ST elevation [place] status post cardiac catheterization on 11/30/2023 with stenting of LAD and status post cardiac catheterization today with stenting of RCA. 3. Ischemic cardiomyopathy, ejection fraction 35% 4. Hypertension, maintained on REGINALD inhibitor's. 5. Hypothyroidism 6. Acute CVA with left temporal bleed 7. History of right lower extremity DVT Plan: follow-up on sodium from this morning. Continue off of IV fluids.
[2023-12-05 11:19] LABS: HGB 9.8 gm/dL (11.4-16.0); MCH 32.5 pg (25.0-35.0); MCHC 32.6 g/dL (31.0-37.0); MCV 99.6 fL (80.0-100.0); Mean Platelet Volume 7.5; Platelet Count 294 k/uL (150-450); RBC 3.01 m/uL (3.80-5.40); RDW 12.6 % (11.5-15.5); WBC 13.6 k/uL (3.8-10.6)
--- NOTE | 2023-12-05 13:12 | P.PN ---
Subjective HISTORY OF PRESENT ILLNESS: This is an 88-year-old female with past medical history of hypertension, DVT in the right leg following venous ablation. Patient presented to the hospital with chest pain/pressure. EKG showed ST segment elevation and 1 and aVL suggestive of acute anterior lateral myocardial infarction. Patient underwent emergent c ardiac catheterization which revealed two-vessel coronary artery disease with a focal 95% stenosis involving the proximal LAD and 60 to 70% involving the right coronary artery. Patient subsequently underwent successful stenting of the proximal LAD artery. 12/01 Due to the significant disease involving the right coronary artery, patient will be scheduled for IFR and intervention on Sunday with Dr. Woodward. Patient and daughter have been updated and all questions have been answered. We will try to obtain records from [facility] on for cardiac catheterization report. Patient is on Xarelto long-term for DVT and we will plan to hold the morning dose on Sunday only. Blood pressure 111/77, heart rate in the 70s and 80s. Pulse ox 96% on room air. Repeat blood work reveals hemoglobin 11.6, WBC improved to 10.1. Sodium 127, potassium 4.5, BUN 28 creatinine 0.8. Echocardiogram reveals EF of 30 to 35%. Mildly increased left ventricular diastolic volume. Moderately increased left ventricular systolic volume. Moderately decreased left ventricular ejection fraction. Akinetic ballooning apex. Patient was previously following with a rabbler out of [facility] and plans to follow-up with Dr. Mook Cortez at the time of discharge. 12/04/2023 Patient is status post repeat cardiac catheterization yesterday with Dr. Woodward. FFR of the RCA was performed which came in to be ischemic. Patient underwent stenting of the mid RCA. Post cardiac cath, the patient developed altered mental status. She underwent CT of the head which revealed 1.8 cm hemorrhage of the left temporal lobe. Patient's Xarelto, aspirin, and Plavix were all discontinued. Patient's family elected to continue with conservative management and declined transfer to tertiary care center. Repeat CAT scan this morning revealed interval decrease in size of left temporal lobe and interparenchymal hemorrhage. The patient is examined this morning at the bedside. Patient's family states that she has been lethargic most of the day. Patient denies any chest pain or pressure. She denies any shortness of breath. Patient responds "yeah" to majority of questions asked, even if the question is not a yes/no qu estion. Telemetry reveals sinus mechanism in the 80s. 12/05/2023 Patient examined this morning at the bedside. Patient's family is present. Patient is much more awake today. She is alert and answering questions appropriately. She denies chest pain or pressure. She denies shortness of breath. Vital signs are stable. Sodium level today 127. Repeat EKG from this morning does not reveal any new ischemic changes. Telemetry reveals sinus mechanism. PHYSICAL EXAM: VITAL SIGNS: Reviewed. GENERAL: Well-developed in no acute distress. NECK: Supple. No JVD or thyromegaly LUNGS: Respirations even and unlabored. Lungs essentially clear to auscultation bilaterally. HEART: Regular rate and rhythm. S1 and S2 heard. EXTREMITIES: Normal range of motion. No clubbing or cyanosis. Peripheral pul ses intact. No lower extremity edema ASSESSMENT: Acute anterior lateral STEMI, status post PCI of the proximal LAD 11/30/2023 and PCI of the mid RCA on 12/03/2023 Ischemic cardiomyopathy, EF 30 to 35% Acute left temporal lobe intraparenchymal hemorrhage Altered mental status with expressive aphasia Hyponatremia Hypertension Hyperlipidemia History of DVT PLAN: Case discussed with Dr. Pool yesterday who is agreeable to resuming aspirin and Plavix Continue to hold Xarelto Continue additional cardiac medications Continue to monitor sodium levels. Repeat BMP in a.m. Further recommendations pending patient course Nurse practitioner note has been reviewed by physician. Signing provider agrees with the documented findings, assessment, and plan of care documented by J[employer] as a scribe. Objective - Vital Signs Vital signs: Vital Signs Temp 98.1 F 12/05/23 07:34 Pulse 54 L 12/05/23 12:21 Resp 16 12/05/23 12:21 BP 123/61 12/05/23 12:21 Pulse Ox 94 L 12/05/23 12:21 FiO2 Intake & Output 12/04/23 12/05/23 12/05/23 18:59 06:59 18:59 Output Total 600 250 Balance -600 -250 Output: Urine 600 250 Other: Voiding Method Indwelling Catheter Indwelling Catheter Indwelling Catheter # Bowel Movements 1 1 - Labs CBC & Chem 7: 12/05/23 10:40 12/05/23 10:40 Labs: Abnormal Lab Results - Last 24 Hours (Table) 12/04/23 12/04/23 12/05/23 Range/Units 15:08 23:20 10:40 WBC 13.6 H (3.8-10.6) k/uL RBC 3.01 L (3.80-5.40) m/uL Hgb 9.8 L (11.4-16.0) gm/dL Hct 30.0 L (34.0-46.0) % Sodium 122 L 125 L (137-145) mmol/L 12/05/23 Range/Units 10:40 WBC (3.8-10.6) k/uL RBC (3.80-5.40) m/uL Hgb (11.4-16.0) gm/dL Hct (34.0-46.0) % Sodium 127 L (137-145) mmol/L
--- NOTE | 2023-12-05 13:57 | P.PN ---
Subjective 88-year-old patient with past medical history significant for deep vein thrombosis already on anticoagulation with Xarelto, history of hypertension, hypothyroid, hyperlipidemia presents to the emergency department with complaints of new onset chest pain. Patient had acute onset of chest discomfort and EMS was called. Upon presentation to ED patient was noted to have waited [place] involving anterior lateral leads. Patient underwent cardiac catheterization it showed two-vessel coronary artery disease with stenosis and LAD as well as RCA. Workup in ER included CBC which showed WBC count of 11.2 hemoglobin 12.7 platelet count of 296. INR of 1.3 The time of presentation initial blood work showed sodium 130, potassium 5.2 which improved to 4.4 creatinine of 1.06 which improved to 0.87, troponin of 1.82 urinalysis was done which was within normal limit Patient underwent cardiac catheterization and was transferred to medical ICU for further manage 12/02/23 : Patient transferred out of medical ICU, echocardiogram completed shows ejection fraction of 35%, patient remains chest pain-free, patient does complain of lower extremity paresthesias, will need outpatient follow-up probably will need nerve conduction study 12/03/23: , blood work reviewed hemoglobin 11.2, serum chemistry revealed sodium 127, nephrology consulted, urine osmolality urine sodium levels ordered. Nephrology consulted chlorothiazide remain on hold, available had gone for cardiac catheterization. Will follow-up postcardiac catheterization Postcardiac catheterization patient had a significant and went and was noted to have altered mental status and nausea, patient had a CT head done which showed intraparenchymal hemorrhage, aspirin and Plavix was discontinued Xarelto was discontinued as well Kcentra was ordered however family deferred, CODE STATUS was changed to no code as well. Follow-up CT head has been ordered 12/04/23 : Patient seen and evaluated at bedside, patient is drowsy however easily arousable, continues to remain disoriented, repeat CT findings discussed with family, we will continue to follow along if patient does not improve family would like to pursue hospice 12/05/2023 Patient is still somewhat confused but is better than yesterday, she is able to follow simple commands and answer some simple questions, family at bedside thin ks some improvement. Patient is not able to eat, only drinking little liquid She has evidence of hyponatremia and received Samsca x 2, her sodium went up to 122 up to 127 today. Also she has evidence of acute anterior lateral STEMI status post PCI of LAD and RCA, currently she is placed on aspirin and Plavix, no evidence of more bleeding She has acute left intra temporal bleed, Xarelto was placed on hold. Neurology following. Objective - Vital Signs Vital signs: Vital Signs Temp 98.1 F 12/05/23 07:34 Pulse 54 L 12/05/23 12:21 Resp 16 12/05/23 12:21 BP 123/61 12/05/23 12:21 Pulse Ox 94 L 12/05/23 12:21 FiO2 Intake & Output 12/04/23 12/05/23 12/05/23 18:59 06:59 18:59 Output Total 600 250 Balance -600 -250 Output: Urine 600 250 Other: Voiding Method Indwelling Catheter Indwelling Catheter Indwelling Catheter # Bowel Movements 1 1 - Labs CBC & Chem 7: 12/05/23 10:40 12/05/23 10:40 Labs: Abnormal Lab Results - Last 24 Hours (Table) 12/04/23 12/04/23 12/05/23 Range/Units 15:08 23:20 10:40 WBC 13.6 H (3.8-10.6) k/uL RBC 3.01 L (3.80-5.40) m/uL Hgb 9.8 L (11.4-16.0) gm/dL Hct 30.0 L (34.0-46.0) % Sodium 122 L 125 L (137-145) mmol/L 12/05/23 Range/Units 10:40 WBC (3.8-10.6) k/uL RBC (3.80-5.40) m/uL Hgb (11.4-16.0) gm/dL Hct (34.0-46.0) % Sodium 127 L (137-145) mmol/L Assessment and Plan Assessment: ST elevated [place] with coronary artery disease, s/p PCI to LAD on 11/23- and mid RCA on 12/02, currently on dual antiplatelet therapy Intraparancymal hemorrhage involving left temporal lobe 1.8 cm Left parietal and occipital lobe infarct Aspiration pneumonia Ischemic cardiomyopathy with acute systolic congestive heart failure. Ejection fraction 30 to 35% S/p cardiac catheterization Acute hyponatremia Hx of DVT Hypertension Hyperlipidemia Leukocytosis likely reactive Plan: Continue with Unasyn Follow-up culture results Continue with aspirin and Plavix Xarelto is on hold Swallow evaluation, Several consultants on the case including nephrology, cardiology and neurology Labs and medication were reviewed.. Continue same treatment. Continue with symptomatic treatment. Resume home medication. Monitor labs and vitals. DVT and GI prophylaxis. Further recommendations as per clinical course of the patient DVT prophylaxis: Already on aspirin and Plavix. Anticoagulation on hold for bleeding into the brain GI Prophylaxis: Ppi PT/OT: Pending Prognosis is guarded
--- NOTE | 2023-12-05 14:42 | P.PN ---
Subjective Progress Note Date: 12/05/23 Patient is an 88-year-old female with past medical history significant for hypertension, hyperlipidemia, hypothyroidism, DVT anticoagulated on Xarelto. Patient was was brought in to the emergency department by EMS 11/30/[address] elevation IA. She was given aspirin in route. She was emergently taken to the [facility] and was noted to have two-vessel coronary artery disease. She did receive a stent to the LAD. Subsequently, on 12/03/2023 she was taken back to the [facility] and underwent PCI/stenting of the RCA. Following the procedure, she became confused. Also was noted to exhibit some expressive dysphasia. She also had an isolated episode of vomiting. No reported trauma or falls. This incited the code stroke protocol. Initial brain CT demonstrated a 1.8 centimeter hemorrhage in the left temporal lobe. There was effacement of the Berna of the inferior left parietal and occipital lobes suggesting developing underlying infarct. Apparently, patient's family and deci tammy maker declined transfer to tertiary care center for possible surgical intervention. Family is considering comfort care if she were to decompensate. She is currently a DO NOT RESUSCITATE and DO NOT INTUBATE. Of course, patient Xarelto is on hold. Patient's family also reportedly refused Kcentra. Follow- up brain CT at 2341 last night redemonstrated the 1.7 x 0.8 cm left temporal lobe intraparenchymal hemorrhage, slightly decreased in size. There is associated vasogenic edema involving the adjacent left temporal lobe parenchyma. Our medical neurologist on-call is following and making recommendations. Patient is currently lying in bed, she is alert and follows most simple commands. She is oriented only to self. She appears confused. There is a product safety coordinator at bedside. There is likely some underlying expressive dysphasia. No reported seizure activity. Able to protect airway, no further episodes of emesis. Hemodynamically, vital signs have remained stable. SpO2 99% on 2 L/min nasal cannula. Respiration 14 to 20 breaths/min. Blood pressure normotensive, most recently recorded at 119/60 mmHg. Heart rate 60 bpm. Most recent CBC unremarkable. BMP from this morning includes a sodium of 120, potassium 4.8, chloride 92, serum bicarb 23, BUN 21, creatinine 0.72, glucose 105. Nephrology is managing the patient's hyponatremia. Consider SIADH. As stated above, patient's family/decision makers are asking for conservative management. They do not want the patient to be intubated. They do not want the patient to be transferred to tertiary care center. Overall prognosis is certainly guarded. On 12/05/2023, the patient is neurologically more alert and awake. She is com municating. She is pleasant. She is moving all 4 extremities. Family is at the bedside. Denies having any headache. Note that she still having some lethargy and on and off altered mentation patient is waxing and waning in terms of her mental status. Overall, much more alert and awake compared to yesterday. Sodium levels at 127. Responded 13.6 with a hemoglobin 9.8. BUN is at 22 with a creatinine of 0.88. A repeat CAT scan of the brain is to be done today. EEG was done and showed no evidence of any seizure activity and the patient was found to have some background slowing of a moderate degree. There was cerebral dysfunction accordingly. The patient remains on Keppra which probably is contributing to her increased sleepiness. This has been noted by the family. She is on IV Unasyn covering for an aspiration pneumonia. She remains on aspirin. She is also on Plavix. Objective - Vital Signs Vital signs: Vital Signs Temp 98.1 F 12/05/23 07:34 Pulse 71 12/05/23 07:34 Resp 16 12/05/23 07:34 BP 121/68 12/05/23 07:34 Pulse Ox 93 L 12/05/23 09:18 FiO2 Intake & Output 12/04/23 12/05/23 12/05/23 18:59 06:59 18:59 Output Total 600 250 Balance -600 -250 Output: Urine 600 250 Other: Voiding Method Indwelling Catheter Indwelling Catheter Indwelling Catheter # Bowel Movements 1 1 - Exam GENERAL EXAM: Alert and uncomfortable on pleasant currently on room air oxygen. HEAD: Normocephalic and atraumatic EYES: Normal reaction of pupils, equal size. NOSE: Clear with pink turbinates. THROAT: No erythema or exudates. NECK: No masses, no JVD. CHEST: No chest wall deformity. LUNGS: Equal air entry with no crackles, wheeze, rhonchi or dullness. No conversational dyspnea or accessory muscle use.. CVS: S1 and S2 normal with no audible murmur, regular rhythm. No extra heart sounds ABDOMEN: No hepatosplenomegaly, active bowel sounds, no guarding or rigidity. SPINE: No scoliosis or deformity SKIN: No rashes CENTRAL NERVOUS SYSTEM: Note that neurologic shows that the patient is alert and awake and communicating. At times, she gets more sleepy. There may be some waxing and waning in her mentation. Overall, much more alert compared to yesterday.. She is currently alert. Cranial nerves II through XII appear intact. no obvious hemiparesis. No obvious ataxia. Patellar DTRs are 2+ bilaterally. EXTREMITIES: There is no peripheral edema, clubbing, or cyanosis. Peripheral pulses are intact. - Labs CBC & Chem 7: 12/05/23 10:40 12/05/23 10:40 Labs: Abnormal Lab Results - Last 24 Hours (Table) 12/04/23 12/04/23 12/04/23 Range/Units 11:31 11:43 15:08 WBC 11.6 H (3.8-10.6) k/uL RBC 3.05 L (3.80-5.40) m/uL Hgb 9.8 L (11.4-16.0) gm/dL Hct 29.7 L (34.0-46.0) % Sodium 125 L 122 L (137-145) mmol/L Chloride 93 L (98-107) mmol/L BUN 22 H (7-17) mg/dL 12/04/23 Range/Units 23:20 WBC (3.8-10.6) k/uL RBC (3.80-5.40) m/uL Hgb (11.4-16.0) gm/dL Hct (34.0-46.0) % Sodium 125 L (137-145) mmol/L Chloride (98-107) mmol/L BUN (7-17) mg/dL Assessment and Plan Assessment: Acute ST elevation IA, initial heart catheterization demonstrated severe two- vessel coronary artery disease with 90% stenosis involving the proximal LAD and 60 to 70% stenosis involving the RCA. Status post stent to the LAD on 11/30/2023. Taken back to the [facility] 12/03/2023, and did undergo PCI/stenting of the RCA. Following the procedure she became acutely confused, and the code stroke protocol was initiated. Acute 1.8 cm hemorrhage of the left temporal lobe, there is effacement of sulcal of the inferior left parietal and occipital lobe suggesting developing underlying infarct. Follow-up nonenhanced brain CT redemonstrates the 1.7 x 0.8 cm left temporal intraparenchymal hemorrhage slightly decreased in size when compared from prior exam. There was some associated vasogenic edema involving the adjacent left temporal lobe parenchyma. Patient's family is elected conservative management. They have refused transfer to tertiary care center. Clinically, the patient is improved compared to yesterday. No new onset focal neurological deficit and the patient is hemodynamically stable at this point in time. Aspirin and Plavix were restarted. Neurology is on the case. Multivessel coronary artery disease, as mentioned above Heart failure with reduced ejection fraction, echocardiogram estimates a sever jarrett reduced left ventricular ejection fraction of 35%. Worsening hyponatremia, suspect SIADH, sodium level is improving History of right lower extremity DVT, recently initiated on Xarelto outpatient History of hypertension History of hyperlipidemia History of hypothyroidism Obesity, with a BMI 40 kg/m Plan: Monitor mental status closely Continue aspirin and Plavix Hold anticoagulation with Xarelto Repeat CAT scan of the brain Continue Keppra for seizure prophylaxis Continue IV Unasyn Patient is currently on room air oxygen Neurology is on the case She is a DNR/DNI CODE STATUS. Pulmonary critical care services will sign off.
--- NOTE | 2023-12-05 16:49 | CT ---
EXAMINATION TYPE: CT brain wo con DATE OF EXAM: 12/05/2023 COMPARISON: 12/04/2023 INDICATION: f/u bleed DLP: 1213.1 mGycm, Automated exposure control for dose reduction was used. CONTRAST: None CT of the brain is performed utilizing 3 mm thick sections through the posterior fossa and 3 mm thick sections through the remaining calvarium. Study is performed within 24 hours of arrival to the hosp ital. There is a hyperdense area within the lateral left temporal lobe measuring 1.3 x 2.2 cm compatible wi th acute hemorrhage. This was present previously and has enlarged somewhat over the interval. Prior m easurement 1.6 x 0.9 cm. There is some edema through the left temporal lobe. This is effacing the temporal horn of the lateral ventricle. No trapped ventricle is evident. There is periventricular white matter hypodensity likely on the basis of chronic white matter ischemi c changes. Ventricles and sulci with the hemorrhage appear prominent compatible with atrophy. No mass lesion is evident. No acute infarcts are evident. Paranasal sinuses and mastoid air cells within the [id number] are clear. IMPRESSION: 1. Slight increase in size of the left temporal middle cranial fossa hemorrhage currently measuring 2.2 x 1.3 cm. Previous measurement 1.6 x 0.9 cm. There is some mild edema adjacent to the hemorrhage which has mild effacement of the left temporal lobe sulci and effacement of the temporal horn latera l ventricle.
[2023-12-05] MEDS: levETIRAcetam IV 500 MG/5 ML VIAL IVP SCH (21:57)
--- NOTE | 2023-12-06 09:35 | P.PN ---
Subjective 88-year-old patient with past medical history significant for deep vein thrombosis already on anticoagulation with Xarelto, history of hypertension, hypothyroid, hyperlipidemia presents to the emergency department with complaints of new onset chest pain. Patient had acute onset of chest discomfort and EMS was called. Upon presentation to ED patient was noted to have waited MS involving anterior lateral leads. Patient underwent cardiac catheterization it showed two-vessel coronary artery disease with stenosis and LAD as well as RCA. Workup in ER included CBC which showed WBC count of 11.2 hemoglobin 12.7 platelet count of 296. INR of 1.3 The time of presentation initial blood work showed sodium 130, potassium 5.2 which improved to 4.4 creatinine of 1.06 which improved to 0.87, troponin of 1.82 urinalysis was done which was within normal limit Patient underwent cardiac catheterization and was transferred to medical ICU for further manage 12/02/23 : Patient transferred out of medical ICU, echocardiogram completed shows ejection fraction of 35%, patient remains chest pain-free, patient does complain of lower extremity paresthesias, will need outpatient follow-up probably will need nerve conduction study 12/03/23: , blood work reviewed hemoglobin 11.2, serum chemistry revealed sodium 127, nephrology consulted, urine osmolality urine sodium levels ordered. Nephrology consulted chlorothiazide remain on hold, available had gone for cardiac catheterization. Will follow-up postcardiac catheterization Postcardiac catheterization patient had a significant and went and was noted to have altered mental status and nausea, patient had a CT head done which showed intraparenchymal hemorrhage, aspirin and Plavix was discontinued Xarelto was discontinued as well Kcentra was ordered however family deferred, CODE STATUS was changed to no code as well. Follow-up CT head has been ordered 12/04/23 : Patient seen and evaluated at bedside, patient is drowsy however easily arousable, continues to remain disoriented, repeat CT findings discussed with family, we will continue to follow along if patient does not improve family would like to pursue hospice 12/05/2023 Patient is still somewhat confused but is better than yesterday, she is able to follow simple commands and answer some simple questions, family at bedside thin ks some improvement. Patient is not able to eat, only drinking little liquid She has evidence of hyponatremia and received Samsca x 2, her sodium went up to 122 up to 127 today. Also she has evidence of acute anterior lateral STEMI status post PCI of LAD and RCA, currently she is placed on aspirin and Plavix, no evidence of more bleeding She has acute left intra temporal bleed, Xarelto was placed on hold. Neurology following. Objective - Vital Signs Vital signs: Vital Signs Temp 98.1 F 12/06/23 08:10 Pulse 69 12/06/23 08:10 Resp 16 12/06/23 08:10 BP 120/59 12/06/23 08:10 Pulse Ox 95 12/06/23 08:10 FiO2 Intake & Output 12/05/23 12/06/23 12/06/23 18:59 06:59 18:59 Intake Total 0 Output Total 400 300 Balance -400 -300 Intake: Oral 0 Output: Urine 400 300 Other: Voiding Method Indwelling Catheter Indwelling Catheter Indwelling Catheter - Exam -GENERAL: The patient is alert and oriented x3, very mildly confused, she follows commands and answers questions appropriately not in any acute distress. Well developed, obese. Generally weak HEENT: Pupils are round and equally reacting to light. EOMI. No scleral icterus. No conjunctival pallor. Normocephalic, atraumatic. No pharyngeal erythema. No thyromegaly. CARDIOVASCULAR: S1 and S2 present. No murmurs, rubs, or gallops. PULMONARY: Chest is clear to auscultation, no wheezing , no crackles. ABDOMEN: Soft, nontender, nondistended, normoactive bowel sounds. No palpable organomegaly. MUSCULOSKELETAL: No joint swelling or deformity. EXTREMITIES: No cyanosis, clubbing, or pedal edema. NEUROLOGICAL: Gross neurological examination did not reveal any focal deficits. SKIN: No rashes. no petechiae. - Labs CBC & Chem 7: 12/05/23 10:40 12/06/23 06:42 Labs: Abnormal Lab Results - Last 24 Hours (Table) 12/05/23 12/05/23 12/05/23 Range/Units 10:40 10:40 14:47 WBC 13.6 H (3.8-10.6) k/uL RBC 3.01 L (3.80-5.40) m/uL Hgb 9.8 L (11.4-16.0) gm/dL Hct 30.0 L (34.0-46.0) % Sodium 127 L 126 L (137-145) mmol/L 12/06/23 Range/Units 06:42 WBC (3.8-10.6) k/uL RBC (3.80-5.40) m/uL Hgb (11.4-16.0) gm/dL Hct (34.0-46.0) % Sodium 129 L (137-145) mmol/L Assessment and Plan Assessment: ST elevated MS with coronary artery disease, s/p PCI to LAD on 11/23- and mid RCA on 12/02, currently on dual antiplatelet therapy Acute left parietal lobe Intraparancymal hemorrhage involving left temporal lobe 1.8 cm, repeat CT brain showing mild worsening Hyponatremia, severe, improved Aspiration pneumonia Ischemic cardiomyopathy with acute systolic congestive heart failure. Ejection fraction 30 to 35% Acute hyponatremia Hx of DVT Hypertension Hyperlipidemia Leukocytosis likely reactive Plan: Continue with Unasyn, may consider to be changed to oral antibiotic tomorrow or upon discharge Follow-up culture results Continue with aspirin and Plavix, per recommendation of consultants, close monitoring of IPH Xarelto is on hold s/p samsca, continue close monitoring of sodium Several consultants on the case including nephrology, cardiology and neurology Labs and medication were reviewed.. Continue same treatment. Continue with symptomatic treatment. Resume home medication. Monitor labs and vitals. DVT and GI prophylaxis. Further recommendations as per clinical course of the patient DVT prophylaxis: Already on aspirin and Plavix. Anticoagulation on hold for bleeding into the brain GI Prophylaxis: Ppi PT/OT: Pending Prognosis is guarded
[2023-12-06] MEDS: SPIRONOLACTONE 25 MG TAB PO SCH (10:19)
--- NOTE | 2023-12-06 10:28 | P.PN ---
Subjective Patient is seen in follow-up for hyponatremia. Sodium level improving. 129 this morning. Oral intake gradually improving. Family present at bedside. Vital signs are stable. General: No acute distress. HEENT: Head exam is unremarkable. LUNGS: No audible rhonchi or wheezes. HEART: Rate and Rhythm are regular. ABDOMEN: Obese, nontender. EXTREMITITES: No edema. Objective - Vital Signs Vital signs: Vital Signs Temp 98.1 F 12/06/23 08:10 Pulse 69 12/06/23 08:10 Resp 16 12/06/23 08:10 BP 120/59 12/06/23 08:10 Pulse Ox 95 12/06/23 08:10 FiO2 Intake & Output 12/05/23 12/06/23 12/06/23 18:59 06:59 18:59 Intake Total 0 Output Total 400 300 Balance -400 -300 Intake: Oral 0 Output: Urine 400 300 Other: Voiding Method Indwelling Catheter Indwelling Catheter Indwelling Catheter - Labs CBC & Chem 7: 12/05/23 10:40 12/06/23 06:42 Labs: Abnormal Lab Results - Last 24 Hours (Table) 12/05/23 12/05/23 12/05/23 Range/Units 10:40 10:40 14:47 WBC 13.6 H (3.8-10.6) k/uL RBC 3.01 L (3.80-5.40) m/uL Hgb 9.8 L (11.4-16.0) gm/dL Hct 30.0 L (34.0-46.0) % Sodium 127 L 126 L (137-145) mmol/L 12/06/23 Range/Units 06:42 WBC (3.8-10.6) k/uL RBC (3.80-5.40) m/uL Hgb (11.4-16.0) gm/dL Hct (34.0-46.0) % Sodium 129 L (137-145) mmol/L Assessment and Plan Plan: Assessment: 1. 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 Status post Samsca this admission. Off IV fluids. Sodium level improving. Urine sodium 45 and urine osmolality 566. 2. Acute ST elevated myocardial infarction status post cardiac catheterization x 2 with stent placement to the LAD and RCA. 3. Cardiomyopathy with ejection fraction of 35%. 4. Benign hypertension. Controlled. 5. Acute CVA with left temporal bleed. 6. Hypothyroidism maintained on Synthroid. Plan: Add 1500 cc fluid restriction. Encouraged oral intake. Check TSH. Repeat labs in the morning.
--- NOTE | 2023-12-06 11:18 | P.PN ---
Subjective Progress Note Date: 12/05/23 12/05/2023: Patient was seen for a follow-up. Multiple family members were present including her children. Patient clinically is doing much better. She has been very sleepy right after she receives Keppra. Her speech is much improved. Patient has been having sporadic headache. At present patient is laying comfortably in the bed. Patient's son has mentioned that she was slightly agitated yesterday but today she is more "calm". Please refer to examination below. 12/04/2023: Patient was seen for a follow-up. Patient's both daughters and son were present today. Per patient's daughters report, patient was much better earlier, talked for about 20 minutes and was doing and talking very well. Now she is sleeping, again scattered thinking. She has been started empirically on antibiotics (Unasyn). Also has hyponatremia for which sodium tablets will be started. Objective - Vital Signs Vital signs: Vital Signs Temp 98.1 F 12/05/23 07:34 Pulse 59 L 12/05/23 14:06 Resp 15 12/05/23 14:06 BP 103/51 12/05/23 14:06 Pulse Ox 94 L 12/05/23 14:06 FiO2 Intake & Output 12/04/23 12/05/23 12/05/23 18:59 06:59 18:59 Output Total 600 250 Balance -600 -250 Output: Urine 600 250 Other: Voiding Method Indwelling Catheter Indwelling Catheter Indwelling Catheter # Bowel Movements 1 1 - Exam Patient sometimes nods off, but otherwise is awake and alert. Her speech is very clear with no dysarthria. Patient can name objects very well including earlobe, knuckles, which she was not able to do before. She can repeat very well. Her face is symmetric, visual farmer full. On muscle strength testing there is no pronator drift and the muscle strength is normal. Sensory to touch is equal. No ataxia for [id number] testing. - Labs CBC & Chem 7: 12/05/23 10:40 12/06/23 06:42 Labs: Abnormal Lab Results - Last 24 Hours (Table) 12/04/23 12/05/23 12/05/23 Range/Units 23:20 10:40 10:40 WBC 13.6 H (3.8-10.6) k/uL RBC 3.01 L (3.80-5.40) m/uL Hgb 9.8 L (11.4-16.0) gm/dL Hct 30.0 L (34.0-46.0) % Sodium 125 L 127 L (137-145) mmol/L 12/05/23 Range/Units 14:47 WBC (3.8-10.6) k/uL RBC (3.80-5.40) m/uL Hgb (11.4-16.0) gm/dL Hct (34.0-46.0) % Sodium 126 L (137-145) mmol/L Assessment and Plan Assessment: * Acute left temporal lobe intraparenchymal hemorrhage 1.7 x 0.8 cm. No significant mass effect or midline shift. No evidence of ischemic infarction. Hemorrhage likely related to antiplatelets/anticoagulants. * Altered mental status, with some expressive aphasia, likely due to above. Also some component of hyponatremia contributing to AMS. * Acute NM, status post cardiac catheterization and cardiac stenting times twice (11/30/2023 and 12/03/2023). * Hyponatremia, suspect SIADH. Sodium down to 120. * History of right lower extremity DVT, on Xarelto since 11/22/2023 * Hypertension * Prediabetes * Hyperlipidemia * Obesity * CHF with EF 35% Plan: * Repeat CT head from this afternoon revealed slight increase in size of the left temporal middle cranial fossa hemorrhage, currently measuring 2.2 x 1.3 cm. Previous measurement was 1.6 x 0.9 cm. There is some mild edema adjacent to the hemorrhage which has mild effacement of the left temporal lobe sulci and effacement of the temporal horn lateral ventricle. I personally reviewed CT head, and agree with the findings. It appears slightly larger as compared to the last CT scan, however patient is clinically much better as per darin dom. On my detailed review, it appears that patient's head was tilted much differently on this current CT as compared to the previous one, therefore the hemorrhage appeared more on axial images. On comparing the coronal sections, the hemorrhage appeared symmetric about 1.8 cm. * As patient is doing clinically better, we will continue aspirin and Plavix and repeat CT head in 24 hours. * Patient has been very sleepy with Keppra. EEG did not reveal any epileptiform activity. We will decrease Keppra to 500 mg at bedtime, hopefully will help with sleep at night, but she will stay more up during the day. * Patient is off Xarelto, Kcentra has been given. * Patient had recent acute NM and cardiac stents, therefore needs to be on antiplatelet medication. Noteworthy is that there was no interruption of dual antiplatelet medications. * EEG was abnormal due to background slowing of moderate degree. This is suggestive of generalized cerebral dysfunction as can be seen with toxic metabolic encephalopathy or related to diffuse structural brain abnormality. Clinical correlation is recommended. No epileptiform activity was seen. * 2D echo from 12/01/2023 revealed severe left ventricular systolic dysfunction with EF 35%. Akinetic apex. Mild aortic and tricuspid regurgitation. Mildly increased left atrial volume. * DVT prophylaxis, SCDs. * Treatment of hyponatremia/SIADH as per IM. * Telemetry monitoring showing sinus bradycardia in the 48. * Discussed with family members in detail.
--- NOTE | 2023-12-06 11:40 | P.PN ---
Subjective HISTORY OF PRESENT ILLNESS: This is an 88-year-old female with past medical history of hypertension, DVT in the right leg following venous ablation. Patient presented to the hospital with chest pain/pressure. EKG showed ST segment elevation and 1 and aVL suggestive of acute anterior lateral myocardial infarction. Patient underwent emergent c ardiac catheterization which revealed two-vessel coronary artery disease with a focal 95% stenosis involving the proximal LAD and 60 to 70% involving the right coronary artery. Patient subsequently underwent successful stenting of the proximal LAD artery. 12/01 Due to the significant disease involving the right coronary artery, patient will be scheduled for IFR and intervention on Sunday with Dr. Woodward. Patient and daughter have been updated and all questions have been answered. We will try to obtain records from [facility] on for cardiac catheterization report. Patient is on Xarelto long-term for DVT and we will plan to hold the morning dose on Sunday only. Blood pressure 111/77, heart rate in the 70s and 80s. Pulse ox 96% on room air. Repeat blood work reveals hemoglobin 11.6, WBC improved to 10.1. Sodium 127, potassium 4.5, BUN 28 creatinine 0.8. Echocardiogram reveals EF of 30 to 35%. Mildly increased left ventricular diastolic volume. Moderately increased left ventricular systolic volume. Moderately decreased left ventricular ejection fraction. Akinetic ballooning apex. Patient was previously following with a campus recruiting internship out of [facility] and plans to follow-up with Dr. Mook Cortez at the time of discharge. 12/04/2023 Patient is status post repeat cardiac catheterization yesterday with Dr. Woodward. FFR of the RCA was performed which came in to be ischemic. Patient underwent stenting of the mid RCA. Post cardiac cath, the patient developed altered mental status. She underwent CT of the head which revealed 1.8 cm hemorrhage of the left temporal lobe. Patient's Xarelto, aspirin, and Plavix were all discontinued. Patient's family elected to continue with conservative management and declined transfer to tertiary care center. Repeat CAT scan this morning revealed interval decrease in size of left temporal lobe and interparenchymal hemorrhage. The patient is examined this morning at the bedside. Patient's family states that she has been lethargic most of the day. Patient denies any chest pain or pressure. She denies any shortness of breath. Patient responds "yeah" to majority of questions asked, even if the question is not a yes/no qu estion. Telemetry reveals sinus mechanism in the 80s. 12/05/2023 Patient examined this morning at the bedside. Patient's family is present. Patient is much more awake today. She is alert and answering questions appropriately. She denies chest pain or pressure. She denies shortness of breath. Vital signs are stable. Sodium level today 127. Repeat EKG from this morning does not reveal any new ischemic changes. Telemetry reveals sinus mechanism. 12/06/2023 Patient examined this morning at the bedside. Patient is sleeping but easily arousable to verbal stimuli. She denies chest pain or pressure. She denies shortness of breath. Patient's family states she attempted to get into the [facility] yesterday but was too weak. Sodium today 129. PHYSICAL EXAM: VITAL SIGNS: Reviewed. GENERAL: Well-developed in no acute distress. NECK: Supple. No JVD or thyromegaly LUNGS: Respirations even and unlabored. Lungs essentially clear to auscultation bilaterally. HEART: Regular rate and rhythm. S1 and S2 heard. EXTREMITIES: Normal range of motion. No clubbing or cyanosis. Peripheral pulses intact. No lower extremity edema ASSESSMENT: Acute anterior lateral STEMI, status post PCI of the proximal LAD 11/30/2023 and PCI of the mid RCA on 12/03/2023 Ischemic cardiomyopathy, EF 30 to 35% Acute left temporal lobe intraparenchymal hemorrhage Altered mental status with expressive aphasia Hyponatremia Hypertension Hyperlipidemia History of DVT PLAN: Continue aspirin and Plavix Continue to hold Xarelto Add Aldactone 25 mg daily Continue additional cardiac medications Continue to monitor sodium levels. Repeat BMP in a.m. Neurology is currently following. Patient has order for repeat CT scan today. Further recommendations pending patient course Nurse practitioner note has been reviewed by physician. Signing provider agrees with the documented findings, assessment, and plan of care documented by [employer] as a scribe. Objective - Vital Signs Vital signs: Vital Signs Temp 98.1 F 12/06/23 08:10 Pulse 69 12/06/23 08:10 Resp 16 12/06/23 08:10 BP 120/59 12/06/23 08:10 Pulse Ox 95 12/06/23 08:10 FiO2 Intake & Output 12/05/23 12/06/23 12/06/23 18:59 06:59 18:59 Intake Total 0 180 Output Total 400 300 Balance -400 -300 180 Intake: Oral 0 180 Output: Urine 400 300 Other: Voiding Method Indwelling Catheter Indwelling Catheter Indwelling Catheter - Labs CBC & Chem 7: 12/05/23 10:40 12/06/23 06:42 Labs: Abnormal Lab Results - Last 24 Hours (Table) 12/05/23 12/06/23 Range/Units 14:47 06:42 Sodium 126 L 129 L (137-145) mmol/L
--- NOTE | 2023-12-06 17:00 | CT ---
EXAMINATION TYPE: CT brain wo con DATE OF EXAM: 12/06/2023 COMPARISON: 12/05/2023 HISTORY: Follow up for brain bleed. CT DLP: 1115.4 mGycm Automated exposure control for dose reduction was used. FINDINGS: The acute hemorrhage in the left temporal lobe has decreased slightly in size in the interval. Previo usly measured 21.5 x 12.8 mm and now measures approximately 13.5 x 17 mm. There is no change in the p eripheral mild vasogenic edema. No new focal acute hemorrhages are seen. The ventricles, basal cisterns and sulci over convexities are moderately enlarged consistent with mod erate generalized atrophy appropriate for patient's age. There is moderate decreased density in the p eriventricular white matter consistent with chronic ischemic white matter malrotation. There is no mass effect or shift of midline structures. The posterior fossa is grossly normal. The intraorbital contents are normal to symmetric. Visualized paranasal sinuses and mastoid air cells are well aerated. IMPRESSION: SLIGHT REDUCTION IN SIZE OF THE ACUTE LEFT TEMPORAL LOBE HEMORRHAGE DESCRIBED ABOVE. NO NEW ABNOR MALITY SEEN.
[2023-12-07 09:54] LABS: Basophils % (A) 0 %; Eosinophils # (A) 0.5 k/uL (0-0.7); Eosinophils % (A) 4 %; HCT 35.9 % (34.0-46.0); HGB 11.7 gm/dL (11.4-16.0); Lymphocytes # (A) 2.4 k/uL (1.0-4.8); Lymphocytes % (A) 24 %; MCH 32.2 pg (25.0-35.0); MCHC 32.5 g/dL (31.0-37.0); MCV 99.3 fL (80.0-100.0); Mean Platelet Volume 7.5; Monocytes # (A) 0.7 k/uL (0-1.0); Monocytes % (A) 7 %; Neutrophils # (A) 6.4 k/uL (1.3-7.7); Neutrophils % (A) 63 %; Platelet Count 322 k/uL (150-450); RBC 3.62 m/uL (3.80-5.40); RDW 12.6 % (11.5-15.5); WBC 10.1 k/uL (3.8-10.6)
[2023-12-07 10:01] LABS: African American GFR (CKD) 31 (>60 ml/min/1.73 sqM); Anion Gap 7 mmol/L; Blood Urea Nitrogen 40 mg/dL (7-17); Calcium 8.9 mg/dL (8.4-10.2); Carbon Dioxide 26 mmol/L (22-30); Chloride 99 mmol/L (98-107); Glucose 104 mg/dL (74-99); Magnesium 1.9 mg/dL (1.6-2.3); Non-African American GFR(CKD) 27 (>60 ml/min/1.73 sqM); Potassium 4.1 mmol/L (3.5-5.1); Sodium 132 mmol/L (137-145)
--- NOTE | 2023-12-07 10:51 | P.PN ---
Subjective Patient is seen in follow-up for hyponatremia. Sodium level improving. 132 this morning. Oral intake gradually improving. Family present at bedside. Vital signs are stable. General: No acute distress. HEENT: Head exam is unremarkable. LUNGS: No audible rhonchi or wheezes. HEART: Rate and Rhythm are regular. ABDOMEN: Obese, nontender. EXTREMITITES: No edema. Objective - Vital Signs Vital signs: Vital Signs Temp 98.3 F 12/07/23 10:07 Pulse 60 12/07/23 10:07 Resp 17 12/07/23 10:07 BP 119/79 12/07/23 10:07 Pulse Ox 95 12/07/23 10:07 FiO2 Intake & Output 12/06/23 12/07/23 12/07/23 18:59 06:59 18:59 Intake Total 778 240 Output Total 300 Balance 778 -60 Weight 86 kg Intake: Oral 778 240 Output: Urine 300 Other: Voiding Method Indwelling Catheter Indwelling Catheter External Catheter - Labs CBC & Chem 7: 12/07/23 08:44 12/07/23 08:44 Labs: Abnormal Lab Results - Last 24 Hours (Table) 12/07/23 12/07/23 Range/Units 08:44 08:44 RBC 3.62 L (3.80-5.40) m/uL Sodium 132 L (137-145) mmol/L BUN 40 H (7-17) mg/dL Creatinine 1.70 H (0.52-1.04) mg/dL Glucose 104 H (74-99) mg/dL Assessment and Plan Plan: Assessment: 1. 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 Status [facility]. Off IV fluids. Sodium level improving. Urine sodium 45 and urine osmolality 566. TSH normal. 2. Acute ST elevated myocardial infarction status post cardiac catheterization x 2 with stent placement to the LAD and RCA. 3. Cardiomyopathy with ejection fraction of 35%. 4. Benign hypertension. Controlled. 5. Acute CVA with left temporal bleed. 6. Hypothyroidism maintained on Synthroid. 7. Acute kidney injury secondary to vasomotor nephropathy from low blood pressures and further worsened with the use of lisinopril/aldactone. Plan: Maintain fluid restriction. Encouraged oral intake. Okay to DC [place] catheter from nephrology standpoint. Stop lisinopril. Stop spironolactone. Repeat labs in the morning.
--- NOTE | 2023-12-07 11:10 | P.PN ---
Subjective Progress Note Date: 12/06/23 12/06/2023: Patient was seen for a follow-up. Patient's multiple children were present today. Patient denies any headache at this time. Her mentation has improved since Keppra dose has been discontinued. However family has noticed that patient is sometimes having staring episodes. She just come out of it when attention is diverted, but takes a couple seconds. Patient worked with physical therapy and she sat in the chair for some time. She was able to make some sidestep to the right, but not to the left side, with her walker and assistance. Family mentions that patient had a great lunch. Speech therapist also came and evaluated the patient. 12/05/2023: Patient was seen for a follow-up. Multiple family members were present including her children. Patient clinically is doing much better. She has been very sleepy right after she receives Keppra. Her speech is much improved. Patient has been having sporadic headache. At present patient is laying comfortably in the bed. Patient's son has mentioned that she was slightly agitated yesterday but today she is more "calm". Please refer to examination below. 12/04/2023: Patient was seen for a follow-up. Patient's both daughters and son were present today. Per patient's daughters report, patient was much better earlier, talked for about 20 minutes and was doing and talking very well. Now she is sleeping, again scattered thinking. She has been started empirically on antibiotics (Unasyn). Also has hyponatremia for which sodium tablets will be started. Objective - Vital Signs Vital signs: Vital Signs Temp 98.6 F 12/06/23 16:48 Pulse 59 L 12/06/23 16:48 Resp 15 12/06/23 16:48 BP 109/50 12/06/23 16:48 Pulse Ox 95 12/06/23 16:48 FiO2 Intake & Output 12/05/23 12/06/23 12/06/23 18:59 06:59 18:59 Intake Total 0 778 Output Total 400 300 Balance -400 -300 778 Intake: Oral 0 778 Output: Urine 400 300 Other: Voiding Method Indwelling Catheter Indwelling Catheter Indwelling Catheter - Exam Patient is much more alert and awake, but does drift back to sleep but becomes more attentive when her name is called. Patient was able to name all objects presented including knuckles, earlobe, and pen.. She was able to repeat very well. Patient knows that she lives in [facility] in [place] and that she is in the hospital but does not know the name. She knows it is November 2023. Her speech is very clear with no dysarthria. Her face is symmetric, visual farmer full with no neglect. On muscle strength testing there is no pronator drift and the muscle strength is normal. Sensory to touch is equal. No ataxia for [id number] testing. - Labs CBC & Chem 7: 12/07/23 08:44 12/07/23 08:44 Labs: Abnormal Lab Results - Last 24 Hours (Table) 12/06/23 Range/Units 06:42 Sodium 129 L (137-145) mmol/L Assessment and Plan Assessment: * Acute left temporal lobe intraparenchymal hemorrhage 1.7 x 0.8 cm. No significant mass effect or midline shift. No evidence of ischemic infarction. Hemorrhage likely related to antiplatelets/anticoagulants. * Altered mental status, with some expressive aphasia, likely due to above. Also some component of hyponatremia contributing to AMS. * Acute AL, status post cardiac catheterization and cardiac stenting times twice (11/30/2023 and 12/03/2023). * Hyponatremia, suspect SIADH. Sodium down to 120. * History of right lower extremity DVT, on Xarelto since 11/22/2023 * Hypertension * Prediabetes * Hyperlipidemia * Obesity * CHF with EF 35% Plan: * Repeat CT head performed today at around 4 PM revealed slight reduction in the size of acute left temporal lobe hemorrhage measuring 13.5 x 17 mm. I personally reviewed CT head, agree with the findings. * As patient is doing clinically better, we will continue aspirin and Plavix 75 mg. * Patient has been very sleepy with Keppra. EEG did not reveal any epileptiform activity. We will decrease Keppra to 500 mg at bedtime, hopefully will help with sleep at night, but she will stay more up during the day. * Patient is off Xarelto, Kcentra has been given. * Patient had recent acute AL and cardiac stents, therefore needs to be on antiplatelet medication. Noteworthy is that there was no interruption of dual antiplatelet medications. * Initial EEG was abnormal due to background slowing of moderate degree. This is suggestive of generalized cerebral dysfunction as can be seen with toxic metabolic encephalopathy or related to diffuse structural brain abnormality. Clinical correlation is recommended. No epileptiform activity was seen. * Since Keppra has been decreased, family is noticing some staring off spells. We will repeat EEG in the morning to rule out any epileptiform tendency. If positive, may have to be switched to an alternate medication like Vimpat. * 2D echo from 12/01/2023 revealed severe left ventricular systolic dysfunction with EF 35%. Akinetic apex. Mild aortic and tricuspid regurgitation. Mildly increased left atrial volume. * DVT prophylaxis, SCDs. * Treatment of hyponatremia/SIADH as per IM. Her most recent sodium is 129, mu ch better. * Telemetry monitoring showing sinus bradycardia in the 48. * Discussed with family members in detail.
--- NOTE | 2023-12-07 14:27 | P.PN ---
Subjective HISTORY OF PRESENT ILLNESS: This is an 88-year-old female with past medical history of hypertension, DVT in the right leg following venous ablation. Patient presented to the hospital with chest pain/pressure. EKG showed ST segment elevation and 1 and aVL suggestive of acute anterior lateral myocardial infarction. Patient underwent emergent c ardiac catheterization which revealed two-vessel coronary artery disease with a focal 95% stenosis involving the proximal LAD and 60 to 70% involving the right coronary artery. Patient subsequently underwent successful stenting of the proximal LAD artery. 12/01 Due to the significant disease involving the right coronary artery, patient will be scheduled for IFR and intervention on Sunday with Dr. Woodward. Patient and daughter have been updated and all questions have been answered. We will try to obtain records from [facility] on for cardiac catheterization report. Patient is on Xarelto long-term for DVT and we will plan to hold the morning dose on Sunday only. Blood pressure 111/77, heart rate in the 70s and 80s. Pulse ox 96% on room air. Repeat blood work reveals hemoglobin 11.6, WBC improved to 10.1. Sodium 127, potassium 4.5, BUN 28 creatinine 0.8. Echocardiogram reveals EF of 30 to 35%. Mildly increased left ventricular diastolic volume. Moderately increased left ventricular systolic volume. Moderately decreased left ventricular ejection fraction. Akinetic ballooning apex. Patient was previously following with a rnfa out of [facility] and plans to follow-up with Dr. Mook Cortez at the time of discharge. 12/04/2023 Patient is status post repeat cardiac catheterization yesterday with Dr. Woodward. FFR of the RCA was performed which came in to be ischemic. Patient underwent stenting of the mid RCA. Post cardiac cath, the patient developed altered mental status. She underwent CT of the head which revealed 1.8 cm hemorrhage of the left temporal lobe. Patient's Xarelto, aspirin, and Plavix were all discontinued. Patient's family elected to continue with conservative management and declined transfer to tertiary care center. Repeat CAT scan this morning revealed interval decrease in size of left temporal lobe and interparenchymal hemorrhage. The patient is examined this morning at the bedside. Patient's family states that she has been lethargic most of the day. Patient denies any chest pain or pressure. She denies any shortness of breath. Patient responds "yeah" to majority of questions asked, even if the question is not a yes/no qu estion. Telemetry reveals sinus mechanism in the 80s. 12/05/2023 Patient examined this morning at the bedside. Patient's family is present. Patient is much more awake today. She is alert and answering questions appropriately. She denies chest pain or pressure. She denies shortness of breath. Vital signs are stable. Sodium level today 127. Repeat EKG from this morning does not reveal any new ischemic changes. Telemetry reveals sinus mechanism. 12/06/2023 Patient examined this morning at the bedside. Patient is sleeping but easily arousable to verbal stimuli. She denies chest pain or pressure. She denies shortness of breath. Patient's family states she attempted to get into the [facility] yesterday but was too weak. Sodium today 129. 12/07/2023 Patient examined this morning. Patient is sitting up in the chair. Patient's mentation continues to improve. She denies chest pain or pressure. She denies shortness of breath. Vital signs are stable. Patient's sodium improved to 132 today. However her creatinine has worsened with a creatinine of 1.7. PHYSICAL EXAM: VITAL SIGNS: Reviewed. GENERAL: Well-developed in no acute distress. NECK: Supple. No JVD or thyromegaly LUNGS: Respirations even and unlabored. Lungs essentially clear to auscultation bilaterally. HEART: Regular rate and rhythm. S1 and S2 heard. EXTREMITIES: Normal range of motion. No clubbing or cyanosis. Peripheral pulses intact. No lower extremity edema ASSESSMENT: Acute anterior lateral STEMI, status post PCI of the proximal LAD 11/30/2023 and PCI of the mid RCA on 12/03/2023 Ischemic cardiomyopathy, EF 30 to 35% Acute left temporal lobe intraparenchymal hemorrhage Altered mental status with expressive aphasia Hyponatremia, improving Acute kidney injury Hypertension Hyperlipidemia History of DVT PLAN: Continue aspirin and Plavix Continue to hold Xarelto Continue additional cardiac medications Nephrotoxic agents have been discontinued. Continue to monitor kidney function Further recommendations pending patient course Nurse practitioner note has been reviewed by physician. Signing provider agrees with the documented findings, assessment, and plan of care documented by [employer] as a scribe. Objective - Vital Signs Vital signs: Vital Signs Temp 98.3 F 12/07/23 10:07 Pulse 60 12/07/23 10:07 Resp 17 12/07/23 10:07 BP 119/79 12/07/23 10:07 Pulse Ox 95 12/07/23 10:07 FiO2 Intake & Output 12/06/23 12/07/23 12/07/23 18:59 06:59 18:59 Intake Total 778 240 Output Total 300 Balance 778 -60 Weight 86 kg Intake: Oral 778 240 Output: Urine 300 Other: Voiding Method Indwelling Catheter Indwelling Catheter External Catheter - Labs CBC & Chem 7: 12/07/23 08:44 12/07/23 08:44 Labs: Abnormal Lab Results - Last 24 Hours (Table) 12/07/23 12/07/23 Range/Units 08:44 08:44 RBC 3.62 L (3.80-5.40) m/uL Sodium 132 L (137-145) mmol/L BUN 40 H (7-17) mg/dL Creatinine 1.70 H (0.52-1.04) mg/dL Glucose 104 H (74-99) mg/dL
--- NOTE | 2023-12-07 21:06 | P.PN ---
Subjective 88-year-old patient with past medical history significant for deep vein thrombosis already on anticoagulation with Xarelto, history of hypertension, hypothyroid, hyperlipidemia presents to the emergency department with complaints of new onset chest pain. Patient had acute onset of chest discomfort and EMS was called. Upon presentation to ED patient was noted to have waited MT involving anterior lateral leads. Patient underwent cardiac catheterization it showed two-vessel coronary artery disease with stenosis and LAD as well as RCA. Workup in ER included CBC which showed WBC count of 11.2 hemoglobin 12.7 platelet count of 296. INR of 1.3 The time of presentation initial blood work showed sodium 130, potassium 5.2 which improved to 4.4 creatinine of 1.06 which improved to 0.87, troponin of 1.82 urinalysis was done which was within normal limit Patient underwent cardiac catheterization and was transferred to medical ICU for further manage 12/02/23 : Patient transferred out of medical ICU, echocardiogram completed shows ejection fraction of 35%, patient remains chest pain-free, patient does complain of lower extremity paresthesias, will need outpatient follow-up probably will need nerve conduction study 12/03/23: , blood work reviewed hemoglobin 11.2, serum chemistry revealed sodium 127, nephrology consulted, urine osmolality urine sodium levels ordered. Nephrology consulted chlorothiazide remain on hold, available had gone for cardiac catheterization. Will follow-up postcardiac catheterization Postcardiac catheterization patient had a significant and went and was noted to have altered mental status and nausea, patient had a CT head done which showed intraparenchymal hemorrhage, aspirin and Plavix was discontinued Xarelto was discontinued as well Kcentra was ordered however family deferred, CODE STATUS was changed to no code as well. Follow-up CT head has been ordered 12/04/23 : Patient seen and evaluated at bedside, patient is drowsy however easily arousable, continues to remain disoriented, repeat CT findings discussed with family, we will continue to follow along if patient does not improve family would like to pursue hospice 12/05/2023 Patient is still somewhat confused but is better than yesterday, she is able to follow simple commands and answer some simple questions, family at bedside thin ks some improvement. Patient is not able to eat, only drinking little liquid She has evidence of hyponatremia and received Samsca x 2, her sodium went up to 122 up to 127 today. Also she has evidence of acute anterior lateral STEMI status post PCI of LAD and RCA, currently she is placed on aspirin and Plavix, no evidence of more bleeding She has acute left intra temporal bleed, Xarelto was placed on hold. Neurology following. 12/07/2023 Patient today mentation is still improving and patient is back to baseline, She is with intraparenchymal hemorrhage which is a stable, she remains on asp irin and Plavix while Xarelto placed on hold. She is status post stent x 2 and needs dual antiplatelet therapy Also her sodium improved 132 today after she received Samsca and she remains on fluid restriction Yesterday Aldactone was added, creatinine today is 1.7. We are going to discontinue Aldactone and lisinopril and keep monitoring creatinine. Patient with no other symptoms She remains on Unasyn for aspiration pneumonia which can be switched to oral antibiotics upon discharge Objective - Vital Signs Vital signs: Vital Signs Temp 98.0 F 12/06/23 23:20 Pulse 60 12/07/23 04:37 Resp 20 12/07/23 04:37 BP 103/61 12/07/23 04:37 Pulse Ox 96 12/07/23 04:37 FiO2 Intake & Output 12/06/23 12/07/23 12/07/23 18:59 06:59 18:59 Intake Total 778 240 Output Total 300 Balance 778 -60 Weight 86 kg Intake: Oral 778 240 Output: Urine 300 Other: Voiding Method Indwelling Catheter Indwelling Catheter - Exam -GENERAL: The patient is alert and oriented x3, very mildly confused, she follows commands and answers questions appropriately not in any acute distress. Well developed, obese. Generally weak HEENT: Pupils are round and equally reacting to light. EOMI. No scleral icterus. No conjunctival pallor. Normocephalic, atraumatic. No pharyngeal erythema. No thyromegaly. CARDIOVASCULAR: S1 and S2 present. No murmurs, rubs, or gallops. PULMONARY: Chest is clear to auscultation, no wheezing , no crackles. ABDOMEN: Soft, nontender, nondistended, normoactive bowel sounds. No palpable organomegaly. MUSCULOSKELETAL: No joint swelling or deformity. EXTREMITIES: No cyanosis, clubbing, or pedal edema. NEUROLOGICAL: Gross neurological examination did not reveal any focal deficits. SKIN: No rashes. no petechiae. - Labs CBC & Chem 7: 05/03/24 08:44 12/07/23 08:44 Assessment and Plan Assessment: ST elevated MT with coronary artery disease, s/p PCI to LAD on 11/23-second and mid RCA on 12/02, currently on dual antiplatelet therapy Acute left parietal lobe Intraparancymal hemorrhage involving left temporal lobe 1.8 cm, repeat CT brain showing mild worsening Hyponatremia, severe, improved Acute kidney injury Aspiration pneumonia Ischemic cardiomyopathy with acute systolic congestive heart failure. Ejection fraction 30 to 35% Acute hyponatremia Hx of DVT Hypertension Hyperlipidemia Leukocytosis likely reactive Plan: Hold lisinopril and Aldactone and monitor creatinine tomorrow Continue with Unasyn, Continue with aspirin and Plavix, per recommendation of consultants, close monit oring of IP Xarelto is on hold s/p samsca, co sodium level improved Several consultants on the case including nephrology, cardiology and neurology Labs and medication were reviewed.. Continue same treatment. Continue with symptomatic treatment. Resume home medication. Monitor labs and vitals. DVT and GI prophylaxis. Further recommendations as per clinical course of the patient DVT prophylaxis: Already on aspirin and Plavix. Anticoagulation on hold for bleeding into the brain GI Prophylaxis: Ppi PT/OT: Pending Prognosis is guarded
[2023-12-07] MEDS: AMPICILLIN-SULBACTAM 3 GM in SODIUM CHLORIDE 0.9% 100 ML IVPB SCH (21:25)
--- NOTE | 2023-12-08 02:34 | EEG ---
ELECTROENCEPHALOGRAM REPORT PREAMBLE: This is an 88-year-old female with history of intracranial bleed, has some staring spells. This study is performed to evaluate for any epileptiform activity. EEG FINDINGS: This is a 21-channel digital EEG recorded with video component, utilizing 10/20 international system with referential and bipolar montages. The patient was drowsy during most of the study with presence of bilaterally symmetric theta frequency rhythm. Frequent stage 2 sleep was seen with presence of sleep spindles. Some intermittent periods of wakefulness with some mixed 10 hertz alpha with some theta activity in bihemispheric region. Background is posterior dominant, not clearly reactive to eye opening or closing. Photic driving response was not seen. Additional superimposed left temporal dysrhythmic delta slowing was seen frequently during the study. No focal or generalized epileptiform activity was seen. IMPRESSION: This is an abnormal study due to the presence of frequent focal delta slowing in the left temporal region, suggestive of focal cortical neuronal dysfunction. No definitive epileptiform activity was seen. Otherwise, the patient was mostly drowsy and asleep during this study. Mild underlying encephalopathy cannot be ruled out. Clinical correlation is recommended. MMODL / IJN: [id number] / MTDD
[2023-12-08 09:40] LABS: African American GFR (CKD) 31 (>60 ml/min/1.73 sqM); Anion Gap 9 mmol/L; Blood Urea Nitrogen 49 mg/dL (7-17); Carbon Dioxide 23 mmol/L (22-30); Chloride 101 mmol/L (98-107); Glucose 124 mg/dL (74-99); Non-African American GFR(CKD) 27 (>60 ml/min/1.73 sqM); Sodium 133 mmol/L (137-145)
[2023-12-08 09:45] LABS: Potassium 5.5 mmol/L (3.5-5.1)
--- NOTE | 2023-12-08 09:59 | P.PN ---
Subjective Progress Note Date: 12/07/23 12/07/2023: Family members was not present today. Patient is laying comfortably in the bed. Appears pleasant, but appears somewhat emotional, concerned about her medical condition. Patient is fully interactive. Denies headache. Complaining of pain in the right hand forearm region, which is swollen. 12/06/2023: Patient was seen for a follow-up. Patient's multiple children were present today. Patient denies any headache at this time. Her mentation has improved since Keppra dose has been discontinued. However family has noticed that patient is sometimes having staring episodes. She just come out of it when attention is diverted, but takes a couple seconds. Patient worked with physical therapy and she sat in the chair for some time. She was able to make some sidestep to the right, but not to the left side, with her walker and assistance. Family mentions that patient had a great lunch. Speech therapist also came and evaluated the patient. 12/05/2023: Patient was seen for a follow-up. Multiple family members were present including her children. Patient clinically is doing much better. She has been very sleepy right after she receives Keppra. Her speech is much improved. Patient has been having sporadic headache. At present patient is laying comfortably in the bed. Patient's son has mentioned that she was slightly agitated yesterday but today she is more "calm". Please refer to examination below. 12/04/2023: Patient was seen for a follow-up. Patient's both daughters and son were present today. Per patient's daughters report, patient was much better earlier, talked for about 20 minutes and was doing and talking very well. Now she is sleeping, again scattered thinking. She has been started empirically on antibiotics (Unasyn). Also has hyponatremia for which sodium tablets will be started. Objective - Vital Signs Vital signs: Vital Signs Temp 98.1 F 12/07/23 23:42 Pulse 53 L 12/08/23 05:10 Resp 20 12/08/23 05:10 BP 120/71 12/08/23 05:10 Pulse Ox 96 12/08/23 05:10 FiO2 Intake & Output 12/07/23 12/08/23 12/08/23 18:59 06:59 18:59 Intake Total 720 240 Output Total 350 Balance 720 -110 Intake: Oral 720 240 Output: Urine 350 Other: Voiding Method External Catheter External Catheter # Voids 1 - Exam Patient is fully alert and awake. Speech and language functions appears normal. Patient was able to name all objects presented including knuckles, earlobe, and pen.. She was able to repeat very well. Patient knows that she lives in [facility] in [place] and that she is in the hospital but does not know the name. Her speech is very clear with no dysarthria. Her face is symmetric, visual farmer full with no neglect. On muscle strength testing there is no pronator drift and the muscle strength is normal. Sensory to touch is equal. No ataxia for dryvuk-np-arsw testing. Her right arm is swollen and bruised from previous procedure. - Labs CBC & Chem 7: 12/07/23 08:44 12/08/23 08:05 Labs: Abnormal Lab Results - Last 24 Hours (Table) 12/07/23 12/07/23 12/08/23 Range/Units 08:44 08:44 08:05 RBC 3.62 L (3.80-5.40) m/uL Sodium 132 L 133 L (137-145) mmol/L Potassium 5.5 H (3.5-5.1) mmol/L BUN 40 H 49 H (7-17) mg/dL Creatinine 1.70 H 1.69 H (0.52-1.04) mg/dL Glucose 104 H 124 H (74-99) mg/dL Assessment and Plan Assessment: * Acute left temporal lobe intraparenchymal hemorrhage 1.7 x 0.8 cm. No significant mass effect or midline shift. No evidence of ischemic infarction. Hemorrhage likely related to antiplatelets/anticoagulants. * Altered mental status, with some expressive aphasia, likely due to above. Also some component of hyponatremia contributing to AMS. Mentation much improved. * Acute NH, status post cardiac catheterization and cardiac stenting times twice (11/30/2023 and 12/03/2023). * Hyponatremia, suspect SIADH. Sodium improved to 132 * History of right lower extremity DVT, on Xarelto since 11/22/2023, now off. * Hypertension * Prediabetes * Hyperlipidemia * Obesity * CHF with EF 35% Plan: * Repeat CT head 12/06/2023 at around 4 PM revealed slight reduction in the size of acute left temporal lobe hemorrhage measuring 13.5 x 17 mm. I personally reviewed CT head, agree with the findings. * As patient is doing clinically better, we will continue aspirin and Plavix 75 mg. * Patient has been very sleepy with Keppra. EEG did not reveal any epileptiform activity. We will decrease Keppra to 500 mg at bedtime, hopefully will help with sleep at night, but she will stay more up during the day. * Patient is off Xarelto, Kcentra has been given. * Patient had recent acute NH and cardiac stents, therefore needs to be on antiplatelet medication. Noteworthy is that there was no interruption of dual antiplatelet medications. * Initial EEG 12/04/2023 was abnormal due to background slowing of moderate degree. This is suggestive of generalized cerebral dysfunction as can be seen with toxic metabolic encephalopathy or related to diffuse structural brain abnormality. Clinical correlation is recommended. No epileptiform activity was seen. * Repeat EEG performed today was abnormal due to presence of frequent focal slowing in the left temporal region, suggestive of focal cortical neuronal dysfunction. No definitive epileptiform activity was seen. Otherwise the pa tient was mostly drowsy and asleep during the study. Mild underlying encephalopathy cannot be ruled out. Clinical correlation is recommended. * 2D echo from 12/01/2023 revealed severe left ventricular systolic dysfunction with EF 35%. Akinetic apex. Mild aortic and tricuspid regurgitation. Mildly increased left atrial volume. * DVT prophylaxis, SCDs, if no medical contraindication. No anticoagulants because of intracranial bleed. * Treatment of hyponatremia/SIADH as per IM. Her most recent sodium is 132, much better. * Telemetry monitoring showing sinus repeat EEG bradycardia in the 48. * Swelling in the right arm, will defer to IM.
--- NOTE | 2023-12-08 10:21 | P.PN ---
Subjective Patient is seen in follow-up for hyponatremia. Sodium level improving. 133 this morning. Oral intake gradually improving. Bar[place] catheter removed December 07, 2023. Has been voiding on her own. Renal function stable. Blood pressure stable. Vital signs are stable. General: No acute distress. HEENT: Head exam is unremarkable. LUNGS: No audible rhonchi or wheezes. HEART: Rate and Rhythm are regular. ABDOMEN: Obese, nontender. EXTREMITITES: No edema. Objective - Vital Signs Vital signs: Vital Signs Temp 97.6 F 12/08/23 09:36 Pulse 79 12/08/23 09:36 Resp 20 12/08/23 09:36 BP 121/58 12/08/23 09:36 Pulse Ox 98 12/08/23 09:36 FiO2 Intake & Output 12/07/23 12/08/23 12/08/23 18:59 06:59 18:59 Intake Total 720 240 Output Total 350 Balance 720 -110 Intake: Oral 720 240 Output: Urine 350 Other: Voiding Method External Catheter External Catheter Toilet # Voids 1 - Labs CBC & Chem 7: 12/07/23 08:44 12/08/23 08:05 Labs: Abnormal Lab Results - Last 24 Hours (Table) 12/08/23 Range/Units 08:05 Sodium 133 L (137-145) mmol/L Potassium 5.5 H (3.5-5.1) mmol/L BUN 49 H (7-17) mg/dL Creatinine 1.69 H (0.52-1.04) mg/dL Glucose 124 H (74-99) mg/dL Assessment and Plan Plan: Assessment: 1. 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 Status post [facility] this admission. Off IV fluids. Sodium level improving. Urine sodium 45 and urine o smolality 566. TSH normal. 2. Acute ST elevated myocardial infarction status post cardiac catheterization x 2 with stent placement to the LAD and RCA. 3. Cardiomyopathy with ejection fraction of 35%. 4. Benign hypertension. Controlled. 5. Acute CVA with left temporal bleed. 6. Hypothyroidism maintained on Synthroid. 7. Acute kidney injury secondary to vasomotor nephropathy from low blood p ressures and further worsened with the use of lisinopril/aldactone. Also received IV contrast for cardiac catheterization November 29 and 2023. Creatinine stable at 1.69 today. UA benign. Plan: Maintain fluid restriction. Encouraged oral intake. Potassium level 5.5 but was a hemolyzed sample. This will be repeated. Check renal ultrasound.
--- NOTE | 2023-12-08 11:48 | P.PN ---
Subjective HISTORY OF PRESENT ILLNESS: This is an 88-year-old female with past medical history of hypertension, DVT in the right leg following venous ablation. Patient presented to the hospital with chest pain/pressure. EKG showed ST segment elevation and 1 and aVL suggestive of acute anterior lateral myocardial infarction. Patient underwent emergent c ardiac catheterization which revealed two-vessel coronary artery disease with a focal 95% stenosis involving the proximal LAD and 60 to 70% involving the right coronary artery. Patient subsequently underwent successful stenting of the proximal LAD artery. 12/01 Due to the significant disease involving the right coronary artery, patient will be scheduled for IFR and intervention on Sunday with Dr. Woodward. Patient and daughter have been updated and all questions have been answered. We will try to obtain records from [facility] on for cardiac catheterization report. Patient is on Xarelto long-term for DVT and we will plan to hold the morning dose on Sunday only. Blood pressure 111/77, heart rate in the 70s and 80s. Pulse ox 96% on room air. Repeat blood work reveals hemoglobin 11.6, WBC improved to 10.1. Sodium 127, potassium 4.5, BUN 28 creatinine 0.8. Echocardiogram reveals EF of 30 to 35%. Mildly increased left ventricular diastolic volume. Moderately increased left ventricular systolic volume. Moderately decreased left ventricular ejection fraction. Akinetic ballooning apex. Patient was previously following with a cupola tender out of [facility] and plans to follow-up with Dr. Mook Cortez at the time of discharge. 12/04/2023 Patient is status post repeat cardiac catheterization yesterday with Dr. Woodward. FFR of the RCA was performed which came in to be ischemic. Patient underwent stenting of the mid RCA. Post cardiac cath, the patient developed altered mental status. She underwent CT of the head which revealed 1.8 cm hemorrhage of the left temporal lobe. Patient's Xarelto, aspirin, and Plavix were all discontinued. Patient's family elected to continue with conservative management and declined transfer to tertiary care center. Repeat CAT scan this morning revealed interval decrease in size of left temporal lobe and interparenchymal hemorrhage. The patient is examined this morning at the bedside. Patient's family states that she has been lethargic most of the day. Patient denies any chest pain or pressure. She denies any shortness of breath. Patient responds "yeah" to majority of questions asked, even if the question is not a yes/no qu estion. Telemetry reveals sinus mechanism in the 80s. 12/05/2023 Patient examined this morning at the bedside. Patient's family is present. Patient is much more awake today. She is alert and answering questions appropriately. She denies chest pain or pressure. She denies shortness of breath. Vital signs are stable. Sodium level today 127. Repeat EKG from this morning does not reveal any new ischemic changes. Telemetry reveals sinus mechanism. 12/06/2023 Patient examined this morning at the bedside. Patient is sleeping but easily arousable to verbal stimuli. She denies chest pain or pressure. She denies shortness of breath. Patient's family states she attempted to get into the [facility] yesterday but was too weak. Sodium today 129. 12/07/2023 Patient examined this morning. Patient is sitting up in the chair. Patient's mentation continues to improve. She denies chest pain or pressure. She denies shortness of breath. Vital signs are stable. Patient's sodium improved to 132 today. However her creatinine has worsened with a creatinine of 1.7. 12/08/2023 Patient examined this morning. She is sitting up in the chair. She is alert and oriented. Patient's family is present. Patient currently denies any chest pain or pressure. She denies any shortness of breath. Sodium today is 133. Creatinine is 1.69. PHYSICAL EXAM: VITAL SIGNS: Reviewed. GENERAL: Well-developed in no acute distress. NECK: Supple. No JVD or thyromegaly LUNGS: Respirations even and unlabored. Lungs essentially clear to auscultation bilaterally. HEART: Regular rate and rhythm. S1 and S2 heard. EXTREMITIES: Normal range of motion. No clubbing or cyanosis. Peripheral pulses intact. No lower extremity edema ASSESSMENT: Acute anterior lateral STEMI, status post PCI of the proximal LAD 11/30/2023 and PCI of the mid RCA on 12/03/2023 Ischemic cardiomyopathy, EF 30 to 35% Acute left temporal lobe intraparenchymal hemorrhage Altered mental status with expressive aphasia Hyponatremia, improving Acute kidney injury Hypertension Hyperlipidemia History of DVT PLAN: Continue aspirin and Plavix Continue to hold Xarelto Continue additional cardiac medications Nephrotoxic agents have been discontinued. Continue to monitor kidney function Further recommendations pending patient course Nurse practitioner note has been reviewed by physician. Signing provider agrees with the documented findings, assessment, and plan of care documented by JOB COUNSELOR as a scribe. Objective - Vital Signs Vital signs: Vital Signs Temp 97.6 F 12/08/23 09:36 Pulse 79 12/08/23 09:36 Resp 20 12/08/23 09:36 BP 121/58 12/08/23 09:36 Pulse Ox 98 12/08/23 09:36 FiO2 Intake & Output 12/07/23 12/08/23 12/08/23 18:59 06:59 18:59 Intake Total 720 240 Output Total 350 Balance 720 -110 Intake: Oral 720 240 Output: Urine 350 Other: Voiding Method External Catheter External Catheter Toilet # Voids 1 - Labs CBC & Chem 7: 12/07/23 08:44 12/08/23 08:05 Labs: Abnormal Lab Results - Last 24 Hours (Table) 12/08/23 Range/Units 08:05 Sodium 133 L (137-145) mmol/L Potassium 5.5 H (3.5-5.1) mmol/L BUN 49 H (7-17) mg/dL Creatinine 1.69 H (0.52-1.04) mg/dL Glucose 124 H (74-99) mg/dL
--- NOTE | 2023-12-08 13:36 | P.PN ---
Subjective Progress Note Date: 12/08/23 * 88-year-old patient with past medical history significant for deep vein thrombosis already on anticoagulation with Xarelto, history of hypertension, hypothyroid, hyperlipidemia presents to the emergency department with complaints of new onset chest pain. Patient had acute onset of chest discomfort and EMS was called. Upon presentation to ED patient was noted to have waited NE involving anterior lateral leads. Patient underwent cardiac catheterization it showed two-vessel coronary artery disease with stenosis and LAD as well as RCA. Workup in ER included CBC which showed WBC count of 11.2 hemoglobin 12.7 platelet count of 296. INR of 1.3 The time of presentation initial blood work showed sodium 130, potassium 5.2 which improved to 4.4 creatinine of 1.06 which improved to 0.87, troponin of 1.82 urinalysis was done which was within normal limit Patient underwent cardiac catheterization and was transferred to medical ICU for further manage 12/02/23 : Patient transferred out of medical ICU, echocardiogram completed shows ejection fraction of 35%, patient remains chest pain-free, patient does complain of lower extremity paresthesias, will need outpatient follow-up probably will need nerve conduction study 12/03/23: , blood work reviewed hemoglobin 11.2, serum chemistry revealed sodium 127, nephrology consulted, urine osmolality urine sodium levels ordered. Nephrology consulted chlorothiazide remain on hold, available had gone for cardiac catheterization. Will follow-up postcardiac catheterization Postcardiac catheterization patient had a significant and went and was noted to have altered mental status and nausea, patient had a CT head done which showed intraparenchymal hemorrhage, aspirin and Plavix was discontinued Xarelto was discontinued as well Kcentra was ordered however family deferred, CODE STATUS was changed to no code as well. Follow-up CT head has been ordered 12/04/23 : Patient seen and evaluated at bedside, patient is drowsy however easily arousable, continues to remain disoriented, repeat CT findings discussed with family, we will continue to follow along if patient does not improve family would like to pursue hospice 12/05/2023 Patient is still somewhat confused but is better than yesterday, she is able to follow simple commands and answer some simple questions, family at bedside thinks some improvement. Patient is not able to eat, only drinking little liquid She has evidence of hyponatremia and received Samsca x 2, her sodium went up to 122 up to 127 today. Also she has evidence of acute anterior lateral STEMI status post PCI of LAD and RCA, currently she is placed on aspirin and Plavix, no evidence of more bleeding She has acute left intra temporal bleed, Xarelto was placed on hold. Neurology following. 12/07/2023 Patient today mentation is still improving and patient is back to baseline, She is with intraparenchymal hemorrhage which is a stable, she remains on aspirin and Plavix while Xarelto placed on hold. She is status post stent x 2 and needs dual antiplatelet therapy Also her sodium improved 132 today after she received Samsca and she remains on fluid restriction Yesterday Aldactone was added, creatinine today is 1.7. We are going to discontinue Aldactone and lisinopril and keep monitoring creatinine. Patient with no other symptoms She remains on Unasyn for aspiration pneumonia which can be switched to oral antibiotics upon discharge 12/08/23: Patient seen and evaluated at bedside, patient is awake and alert family at bedside following commands able to have a conversation. Follow-up potassium levels reviewed potassium has improved. Follow-up on basic metabolic panel, patient will need discharge to subacute rehab once medically stable PHYSICAL EXAMINATION: GENERAL: The patient is alert and oriented 3 , ill appearance, bruising noted HEENT: Pupils are round and equally reacting to light. EOMI. CARDIOVASCULAR: S1 and S2 present. No murmurs, rubs, or gallops. PULMONARY: Chest is clear to auscultation, no wheezing or crackles. ABDOMEN: Soft, nontender, nondistended, normoactive bowel sounds. No palpable organomegaly. MUSCULOSKELETAL: No joint swelling or deformity. EXTREMITIES: No cyanosis, clubbing, or pedal edema. NEUROLOGICAL: Alert to person place and situation speech has improved does get forgetful during conversation moving upper and lower extremity Assessment and plan * ST elevated NE with coronary artery disease s/p PCI to LAD, PCI to RCA * Intraparancymal hemorrhage involving left temporal lobe 1.8 cm * Left parietal and occipital lobe infarct * Aspiration pneumonia * Ischemic cardiomyopathy with acute systolic congestive heart failure * S/p cardiac catheterization * Acute hyponatremia * Hx of DVT * Hypertension * Hyperlipidemia * Leukocytosis likely reactive * In regards to intraparenchymal hemorrhage, neurology consulted, serial CTs completed, continue Keppra, patient back on antiplatelet, Xarelto continue to remains on hold * For coronary artery disease, aspirin and Plavix was discontinued which has been resumed since 12/03, continue to monitor * In regards to history of hypertension> hydrochlorothiazide, lisinopril remain on hold, nephrology following. * In regards to hyponatremia urine osmolality urine sodium serum osmolality ordered, nephrology following given tolvaptan follow-up sodium 133 improved * Regards to hyperlipidemia continue Lipitor * In regards to aspiration pneumonia, transition from Unasyn to Augmentin provide IV access * In regards to DVT patient was on Xarelto prior to admission which has been discontinued secondary to intracranial bleed, SCDs for DVT prophylax Objective - Vital Signs Vital signs: Vital Signs Temp 97.6 F 12/08/23 09:36 Pulse 79 12/08/23 09:36 Resp 20 12/08/23 09:36 BP 121/58 12/08/23 09:36 Pulse Ox 98 12/08/23 09:36 FiO2 Intake & Output 12/07/23 12/08/23 12/08/23 18:59 06:59 18:59 Intake Total 720 240 Output Total 350 Balance 720 -110 Intake: Oral 720 240 Output: Urine 350 Other: Voiding Method External Catheter External Catheter Toilet # Voids 1 - Labs CBC & Chem 7: 12/07/23 08:44 12/08/23 12:38 Labs: Abnormal Lab Results - Last 24 Hours (Table) 12/08/23 Range/Units 08:05 Sodium 133 L (137-145) mmol/L Potassium 5.5 H (3.5-5.1) mmol/L BUN 49 H (7-17) mg/dL Creatinine 1.69 H (0.52-1.04) mg/dL Glucose 124 H (74-99) mg/dL
[2023-12-08] MEDS: AMOXIC-POT CLAV 875-125MG 1 EACH TAB PO SCH (13:47)
--- NOTE | 2023-12-08 18:50 | US ---
EXAMINATION TYPE: US kidneys/renal and bladder DATE OF EXAM: 12/08/2023 Exam done portable COMPARISON: CT 2018 CLINICAL INDICATION: Female, 88 years old with history of rachael; EXAM MEASUREMENTS: Right Kidney: 9.6 x 4.9 x 4.6 cm Left Kidney: 10.0 x 5.0 x 4.7 cm Right Kidney: no hydronephrosis or masses seen Left Kidney: no hydronephrosis or masses seen Bladder: not fully distended, appears wnl as seen IMPRESSION: 1. No acute renal ultrasound abnormality.
[2023-12-08] MEDS: PANTOPRAZOLE 40 MG TABLET PO SCH (21:14)
[2023-12-08] MEDS: levETIRAcetam 500 MG TAB PO SCH (21:14)
[2023-12-08] MEDS ORDERED: PANTOPRAZOLE 40 MG TABLET PO SCH (21:15)
[2023-12-09 06:45] LABS: African American GFR (CKD) 33 (>60 ml/min/1.73 sqM); Anion Gap 4 mmol/L; Blood Urea Nitrogen 48 mg/dL (7-17); Calcium 8.8 mg/dL (8.4-10.2); Carbon Dioxide 27 mmol/L (22-30); Chloride 100 mmol/L (98-107); Glucose 96 mg/dL (74-99); Non-African American GFR(CKD) 29 (>60 ml/min/1.73 sqM); Potassium 4.6 mmol/L (3.5-5.1); Sodium 131 mmol/L (137-145)
--- NOTE | 2023-12-09 09:33 | P.PN ---
Subjective Progress Note Date: 12/08/23 12/08/2023: Patient was seen for follow-up. Multiple family members were present today. Patient is complaining of pain in the right wrist region. There is lot of hematoma on the right side. Patient very tender over the wrist region. Concerned about median nerve compression. Recommended cold compresses. Her speech and language functions are normal. She is more interactive. No further seizure-like spells. 12/07/2023: Family members was not present today. Patient is laying comfortably in the bed. Appears pleasant, but appears somewhat emotional, concerned about her medical condition. Patient is fully interactive. Denies headache. Complaining of pain in the right hand forearm region, which is swollen. 12/06/2023: Patient was seen for a follow-up. Patient's multiple children were present today. Patient denies any headache at this time. Her mentation has improved since Keppra dose has been discontinued. However family has noticed that patient is sometimes having staring episodes. She just come out of it when attention is diverted, but takes a couple seconds. Patient worked with physical therapy and she sat in the chair for some time. She was able to make some sidestep to the right, but not to the left side, with her walker and assistance. Family mentions that patient had a great lunch. Speech therapist also came and evaluated the patient. 12/05/2023: Patient was seen for a follow-up. Multiple family members were present including her children. Patient clinically is doing much better. She has been very sleepy right after she receives Keppra. Her speech is much improved. Patient has been having sporadic headache. At present patient is laying comfortably in the bed. Patient's son has mentioned that she was slightly agitated yesterday but today she is more "calm". Please refer to exam ination below. 12/04/2023: Patient was seen for a follow-up. Patient's both daughters and son were present today. Per patient's daughters report, patient was much better ear lier, talked for about 20 minutes and was doing and talking very well. Now she is sleeping, again scattered thinking. She has been started empirically on antibiotics (Unasyn). Also has hyponatremia for which sodium tablets will be started. Objective - Vital Signs Vital signs: Vital Signs Temp 97.6 F 12/08/23 09:36 Pulse 48 L 12/08/23 11:50 Resp 20 12/08/23 11:50 BP 122/67 12/08/23 11:50 Pulse Ox 99 12/08/23 11:50 FiO2 Intake & Output 12/07/23 12/08/23 12/08/23 18:59 06:59 18:59 Intake Total 720 240 Output Total 350 Balance 720 -110 Intake: Oral 720 240 Output: Urine 350 Other: Voiding Method External Catheter External Catheter Toilet # Voids 1 - Exam Patient is fully alert and awake. Speech and language functions appears normal. Patient was able to name all objects presented including knuckles, earlobe, and pen.. She was able to repeat very well. Patient knows that she lives in [facility] in [place] and that she is in the hospital but does not know the name. Her speech is very clear with no dysarthria. Her face is symmetric, visual farmer full with no neglect. On muscle strength testing there is no pronator drift and the muscle strength is normal. Sensory to touch is equal. No ataxia for [id number] testing. Her right arm is swollen and bruised from previous procedure. - Labs CBC & Chem 7: 12/07/23 08:44 12/09/23 06:04 Labs: Abnormal Lab Results - Last 24 Hours (Table) 12/08/23 Range/Units 08:05 Sodium 133 L (137-145) mmol/L Potassium 5.5 H (3.5-5.1) mmol/L BUN 49 H (7-17) mg/dL Creatinine 1.69 H (0.52-1.04) mg/dL Glucose 124 H (74-99) mg/dL Assessment and Plan Assessment: * Acute left temporal lobe intraparenchymal hemorrhage 1.7 x 0.8 cm. No significant mass effect or midline shift. No evidence of ischemic infarction. Hemorrhage likely related to antiplatelets/anticoagulants. * Altered mental status, with some expressive aphasia, likely due to above. Also some component of hyponatremia contributing to AMS. Mentation much improved. * Acute ND, status post cardiac catheterization and cardiac stenting times twice (11/30/2023 and 12/03/2023). * Hyponatremia, suspect SIADH. Lowest level was 120, but now sodium improved to 133 * History of right lower extremity DVT, on Xarelto since 11/22/2023, now off. * Hypertension * Prediabetes * Hyperlipidemia * Obesity * CHF with EF 35% Plan: * Repeat CT head 12/06/2023 at around 4 PM revealed slight reduction in the size of acute left temporal lobe hemorrhage measuring 13.5 x 17 mm. I personally reviewed CT head, agree with the findings. * As patient is doing clinically better, we will continue aspirin and Plavix 75 mg. * Neurologically patient is stable. Follow clinically. * Patient is not somnolent with Keppra 500 mg at bedtime. She will continue the same. No seizure like activity noted clinically or on the EEG. No prior history of seizures. * Patient is off Xarelto, Kcentra has been given. * Patient had recent acute ND and cardiac stents, therefore needs to be on antiplatelet medication. Noteworthy is that there was no interruption of dual antiplatelet medications. * Initial EEG 12/04/2023 was abnormal due to background slowing of moderate degree. This is suggestive of generalized cerebral dysfunction as can be seen with toxic metabolic encephalopathy or related to diffuse structural brain abnormality. Clinical correlation is recommended. No epileptiform activity was seen. * Repeat EEG 12/07/2023 was abnormal due to presence of frequent focal slowing in the left temporal region, suggestive of focal cortical neuronal dysfunction. No definitive epileptiform activity was seen. Otherwise the patient was mostly drowsy and asleep during the study. Mild underlying encephalopathy cannot be ruled out. Clinical correlation is recommended. * 2D echo from 12/01/2023 revealed severe left ventricular systolic dysfunction with EF 35%. Akinetic apex. Mild aortic and tricuspid regurgitation. Mildly increased left atrial volume. * DVT prophylaxis, SCDs, if no medical contraindication. No anticoagulants because of intracranial bleed. * Treatment of hyponatremia/SIADH as per IM. Her most recent sodium is 132, much better. * Telemetry monitoring showing sinus repeat EEG bradycardia in the 48. * Swelling in the right arm, will defer to IM. Recommend cold compresses to the wrist region. * Discussed with family members.
--- NOTE | 2023-12-09 10:10 | P.PN ---
Subjective Patient is seen in follow-up for hyponatremia. Sodium level 131. Creatinine stable at 1.61. Oral intake improved. [place] catheter removed December 07, 2023. Has been voiding on her own. Blood pressure stable. Vital signs are stable. General: No acute distress. HEENT: Head exam is unremarkable. LUNGS: No audible rhonchi or wheezes. HEART: Rate and Rhythm are regular. ABDOMEN: Obese, nontender. EXTREMITITES: No edema. Objective - Vital Signs Vital signs: Vital Signs Temp 97.9 F 12/09/23 07:36 Pulse 49 L 12/09/23 07:36 Resp 18 12/09/23 07:36 BP 126/49 12/09/23 07:36 Pulse Ox 96 12/09/23 07:36 FiO2 Intake & Output 12/08/23 12/09/23 12/09/23 18:59 06:59 18:59 Intake Total 898 240 Output Total 200 600 Balance 698 -360 Intake: Oral 898 240 Output: Urine 200 600 Other: Voiding Method Toilet Bedside Commode Bedside Commode # Voids 1 1 # Bowel Movements 1 - Labs CBC & Chem 7: 12/07/23 08:44 12/09/23 06:04 Labs: Abnormal Lab Results - Last 24 Hours (Table) 12/09/23 Range/Units 06:04 Sodium 131 L (137-145) mmol/L BUN 48 H (7-17) mg/dL Creatinine 1.61 H (0.52-1.04) mg/dL Assessment and Plan Plan: Assessment: 1. 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 Status post [facility] this admission. Off IV fluids. Sodium level improved. Urine sodium 45 and urine osmolality 566. TSH normal. 2. Acute ST elevated myocardial infarction status post cardiac catheterization x 2 with stent placement to the LAD and RCA. 3. Cardiomyopathy with ejection fraction of 35%. 4. Benign hypertension. Controlled. 5. Acute CVA with left temporal bleed. 6. Hypothyroidism maintained on Synthroid. 7. Acute kidney injury secondary to vasomotor nephropathy from low blood pressures and further worsened with the use of lisinopril/aldactone. Also r eceived IV contrast for cardiac catheterization November 29 and 2023. Creatinine stable at 1.61 today. UA benign. No hydronephrosis noted on kidney ultrasound. Plan: Maintain fluid restriction. Encouraged oral intake. Samsca 7.5 mg once today. Avoid nephrotoxins. Continue to monitor renal function and urine output.
--- NOTE | 2023-12-09 10:37 | P.PN ---
Subjective HISTORY OF PRESENT ILLNESS: This is an 88-year-old female with past medical history of hypertension, DVT in the right leg following venous ablation. Patient presented to the hospital with chest pain/pressure. EKG showed ST segment elevation and 1 and aVL suggestive of acute anterior lateral myocardial infarction. Patient underwent emergent c ardiac catheterization which revealed two-vessel coronary artery disease with a focal 95% stenosis involving the proximal LAD and 60 to 70% involving the right coronary artery. Patient subsequently underwent successful stenting of the proximal LAD artery. 12/01 Due to the significant disease involving the right coronary artery, patient will be scheduled for IFR and intervention on Sunday with Dr. Woodward. Patient and daughter have been updated and all questions have been answered. We will try to obtain records from [facility] on for cardiac catheterization report. Patient is on Xarelto long-term for DVT and we will plan to hold the morning dose on Sunday only. Blood pressure 111/77, heart rate in the 70s and 80s. Pulse ox 96% on room air. Repeat blood work reveals hemoglobin 11.6, WBC improved to 10.1. Sodium 127, potassium 4.5, BUN 28 creatinine 0.8. Echocardiogram reveals EF of 30 to 35%. Mildly increased left ventricular diastolic volume. Moderately increased left ventricular systolic volume. Moderately decreased left ventricular ejection fraction. Akinetic ballooning apex. Patient was previously following with a sludge mill operator out of [facility] and plans to follow-up with Dr. Mook Cortez at the time of discharge. 12/04/2023 Patient is status post repeat cardiac catheterization yesterday with Dr. Woodward. FFR of the RCA was performed which came in to be ischemic. Patient underwent stenting of the mid RCA. Post cardiac cath, the patient developed altered mental status. She underwent CT of the head which revealed 1.8 cm hemorrhage of the left temporal lobe. Patient's Xarelto, aspirin, and Plavix were all discontinued. Patient's family elected to continue with conservative management and declined transfer to tertiary care center. Repeat CAT scan this morning revealed interval decrease in size of left temporal lobe and interparenchymal hemorrhage. The patient is examined this morning at the bedside. Patient's family states that she has been lethargic most of the day. Patient denies any chest pain or pressure. She denies any shortness of breath. Patient responds "yeah" to majority of questions asked, even if the question is not a yes/no qu estion. Telemetry reveals sinus mechanism in the 80s. 12/05/2023 Patient examined this morning at the bedside. Patient's family is present. Patient is much more awake today. She is alert and answering questions appropriately. She denies chest pain or pressure. She denies shortness of breath. Vital signs are stable. Sodium level today 127. Repeat EKG from this morning does not reveal any new ischemic changes. Telemetry reveals sinus mechanism. 12/06/2023 Patient examined this morning at the bedside. Patient is sleeping but easily arousable to verbal stimuli. She denies chest pain or pressure. She denies shortness of breath. Patient's family states she attempted to get into the [facility] yesterday but was too weak. Sodium today 129. 12/07/2023 Patient examined this morning. Patient is sitting up in the chair. Patient's mentation continues to improve. She denies chest pain or pressure. She denies shortness of breath. Vital signs are stable. Patient's sodium improved to 132 today. However her creatinine has worsened with a creatinine of 1.7. 12/08/2023 Patient examined this morning. She is sitting up in the chair. She is alert and oriented. Patient's family is present. Patient currently denies any chest pain or pressure. She denies any shortness of breath. Sodium today is 133. Creatinine is 1.69. 12/09/2023 Patient examined this morning. She is sitting up in the chair. Patient's family is present. Patient denies chest pain or pressure. She denies shortness of breath. Vital signs are stable. Sodium today 131. Creatinine 1.6. PHYSICAL EXAM: VITAL SIGNS: Reviewed. GENERAL: Well-developed in no acute distress. NECK: Supple. No JVD or thyromegaly LUNGS: Respirations even and unlabored. Lungs essentially clear to auscultation bilaterally. HEART: Regular rate and rhythm. S1 and S2 heard. EXTREMITIES: Normal range of motion. No clubbing or cyanosis. Peripheral pulses intact. No lower extremity edema. Bruising to right arm noted. ASSESSMENT: Acute anterior lateral STEMI, status post PCI of the proximal LAD 11/30/2023 and PCI of the mid RCA on 12/03/2023 Ischemic cardiomyopathy, EF 30 to 35% Acute left temporal lobe intraparenchymal hemorrhage Altered mental status with expressive aphasia Hyponatremia, improving Acute kidney injury Hypertension Hyperlipidemia History of DVT PLAN: Continue aspirin and Plavix Continue to hold Xarelto Continue additional cardiac medications Nephrotoxic agents have been discontinued. Continue to monitor kidney function Further recommendations pending patient course Nurse practitioner note has been reviewed by physician. Signing provider agrees with the documented findings, assessment, and plan of care documented by RATING EXAMINER as a scribe. Objective - Vital Signs Vital signs: Vital Signs Temp 97.9 F 12/09/23 07:36 Pulse 49 L 12/09/23 07:36 Resp 18 12/09/23 07:36 BP 126/49 12/09/23 07:36 Pulse Ox 96 12/09/23 07:36 FiO2 Intake & Output 12/08/23 12/09/23 12/09/23 18:59 06:59 18:59 Intake Total 898 240 Output Total 200 600 Balance 698 -360 Intake: Oral 898 240 Output: Urine 200 600 Other: Voiding Method Toilet Bedside Commode Bedside Commode # Voids 1 1 # Bowel Movements 1 - Labs CBC & Chem 7: 12/07/23 08:44 12/09/23 06:04 Labs: Abnormal Lab Results - Last 24 Hours (Table) 12/09/23 Range/Units 06:04 Sodium 131 L (137-145) mmol/L BUN 48 H (7-17) mg/dL Creatinine 1.61 H (0.52-1.04) mg/dL
[2023-12-09] MEDS: TOLVAPTAN 15 MG TABLET PO ONE (11:18)
--- NOTE | 2023-12-09 12:52 | P.PN ---
Subjective Progress Note Date: 12/09/23 * 88-year-old patient with past medical history significant for deep vein thrombosis already on anticoagulation with Xarelto, history of hypertension, hypothyroid, hyperlipidemia presents to the emergency department with complaints of new onset chest pain. Patient had acute onset of chest discomfort and EMS was called. Upon presentation to ED patient was noted to have waited KS involving anterior lateral leads. Patient underwent cardiac catheterization it showed two-vessel coronary artery disease with stenosis and LAD as well as RCA. Workup in ER included CBC which showed WBC count of 11.2 hemoglobin 12.7 platelet count of 296. INR of 1.3 The time of presentation initial blood work showed sodium 130, potassium 5.2 which improved to 4.4 creatinine of 1.06 which improved to 0.87, troponin of 1.82 urinalysis was done which was within normal limit Patient underwent cardiac catheterization and was transferred to medical ICU for further manage 12/02/23 : Patient transferred out of medical ICU, echocardiogram completed shows ejection fraction of 35%, patient remains chest pain-free, patient does complain of lower extremity paresthesias, will need outpatient follow-up probably will need nerve conduction study 12/03/23: , blood work reviewed hemoglobin 11.2, serum chemistry revealed sodium 127, nephrology consulted, urine osmolality urine sodium levels ordered. Nephrology consulted chlorothiazide remain on hold, available had gone for cardiac catheterization. Will follow-up postcardiac catheterization Postcardiac catheterization patient had a significant and went and was noted to have altered mental status and nausea, patient had a CT head done which showed intraparenchymal hemorrhage, aspirin and Plavix was discontinued Xarelto was discontinued as well Kcentra was ordered however family deferred, CODE STATUS was changed to no code as well. Follow-up CT head has been ordered 12/04/23 : Patient seen and evaluated at bedside, patient is drowsy however easily arousable, continues to remain disoriented, repeat CT findings discussed with family, we will continue to follow along if patient does not improve family would like to pursue hospice 12/05/2023 Patient is still somewhat confused but is better than yesterday, she is able to follow simple commands and answer some simple questions, family at bedside thinks some improvement. Patient is not able to eat, only drinking little liquid She has evidence of hyponatremia and received Samsca x 2, her sodium went up to 122 up to 127 today. Also she has evidence of acute anterior lateral STEMI status post PCI of LAD and RCA, currently she is placed on aspirin and Plavix, no evidence of more bleeding She has acute left intra temporal bleed, Xarelto was placed on hold. Neurology following. 12/07/2023 Patient today mentation is still improving and patient is back to baseline, She is with intraparenchymal hemorrhage which is a stable, she remains on aspirin and Plavix while Xarelto placed on hold. She is status post stent x 2 and needs dual antiplatelet therapy Also her sodium improved 132 today after she received Samsca and she remains on fluid restriction Yesterday Aldactone was added, creatinine today is 1.7. We are going to discontinue Aldactone and lisinopril and keep monitoring creatinine. Patient with no other symptoms She remains on Unasyn for aspiration pneumonia which can be switched to oral antibiotics upon discharge 12/08/23: Patient seen and evaluated at bedside, patient is awake and alert family at bedside following commands able to have a conversation. Follow-up potassium levels reviewed potassium has improved. Follow-up on basic metabolic panel, patient will need discharge to subacute rehab once medically stable 12/09/23: Patient seen and evaluated at bedside, patient mentation has improved however does have episode of delirium, blood pressure reviewed, creatinine reviewed seem to have stabilized potassium within normal limits as well appreciate input from nephrology sodium 131, neurology following as well. Patient following commands mentation has improved PHYSICAL EXAMINATION: GENERAL: The patient is alert and oriented 3 , ill appearance, bruising noted HEENT: Pupils are round and equally reacting to light. EOMI. CARDIOVASCULAR: S1 and S2 present. No murmurs, rubs, or gallops. PULMONARY: Chest is clear to auscultation, no wheezing or crackles. ABDOMEN: Soft, nontender, nondistended, normoactive bowel sounds. No palpable organomegaly. MUSCULOSKELETAL: No joint swelling or deformity. EXTREMITIES: No cyanosis, clubbing, or pedal edema. NEUROLOGICAL: Alert to person place and situation speech has improved does get forgetful during conversation moving upper and lower extremity Assessment and plan * ST elevated KS with coronary artery disease s/p PCI to LAD, PCI to RCA * Intraparancymal hemorrhage involving left temporal lobe 1.8 cm * Left parietal and occipital lobe infarct * Aspiration pneumonia * Ischemic cardiomyopathy with acute systolic congestive heart failure * S/p cardiac catheterization * Acute hyponatremia * Hx of DVT * Hypertension * Hyperlipidemia * Leukocytosis likely reactive * In regards to intraparenchymal hemorrhage, neurology consulted, serial CTs completed, continue Keppra, patient back on antiplatelet, Xarelto continue to remains on hold * For coronary artery disease, aspirin and Plavix was discontinued which has been resumed since 12/03, continue to monitor * In regards to history of hypertension> hydrochlorothiazide, lisinopril remain on hold, nephrology following. * In regards to hyponatremia urine osmolality urine sodium serum osmolality ordered, nephrology following given tolvaptan follow-up sodium 133 improved * Regards to hyperlipidemia continue Lipitor * In regards to aspiration pneumonia, transition from Unasyn to Augmentin day 2 of * In regards to DVT patient was on Xarelto prior to admission which has been discontinued secondary to intracranial bleed, SCDs for DVT prophylax Objective - Vital Signs Vital signs: Vital Signs Temp 97.9 F 12/09/23 07:36 Pulse 49 L 12/09/23 07:36 Resp 18 12/09/23 07:36 BP 126/49 12/09/23 07:36 Pulse Ox 96 12/09/23 07:36 FiO2 Intake & Output 12/08/23 12/09/23 12/09/23 18:59 06:59 18:59 Intake Total 898 240 Output Total 200 600 Balance 698 -360 Intake: Oral 898 240 Output: Urine 200 600 Other: Voiding Method Toilet Bedside Commode Bedside Commode # Voids 1 1 # Bowel Movements 1 - Labs CBC & Chem 7: 12/07/23 08:44 12/09/23 06:04 Labs: Abnormal Lab Results - Last 24 Hours (Table) 12/09/23 Range/Units 06:04 Sodium 131 L (137-145) mmol/L BUN 48 H (7-17) mg/dL Creatinine 1.61 H (0.52-1.04) mg/dL
--- NOTE | 2023-12-10 00:59 | P.PN ---
Subjective Progress Note Date: 12/09/23 12/09/2023: Patient was seen for a follow-up. Family mentions that patient is doing better. However she has problems with doing math problem. Patient will be transferred to [facility] once medically cleared. No seizure-like activity. No complaining of headache. Patient did wake up, had lunch and talking normally. At present patient is tired and asleep. 12/08/2023: Patient was seen for follow-up. Multiple family members were present today. Patient is complaining of pain in the right wrist region. There is lot of hematoma on the right side. Patient very tender over the wrist region. Concerned about median nerve compression. Recommended cold compresses. Her speech and language functions are normal. She is more interactive. No further seizure-like spells. 12/07/2023: Family members was not present today. Patient is laying comfortably in the bed. Appears pleasant, but appears somewhat emotional, concerned about her medical condition. Patient is fully interactive. Denies headache. Complaining of pain in the right hand forearm region, which is swollen. 12/06/2023: Patient was seen for a follow-up. Patient's multiple children were present today. Patient denies any headache at this time. Her mentation has improved since Keppra dose has been discontinued. However family has noticed that patient is sometimes having staring episodes. She just come out of it when attention is diverted, but takes a couple seconds. Patient worked with physical therapy and she sat in the chair for some time. She was able to make some sidestep to the right, but not to the left side, with her walker and assistance. Family mentions that patient had a great lunch. Speech therapist also came and evaluated the patient. 12/05/2023: Patient was seen for a follow-up. Multiple family members were present including her children. Patient clinically is doing much better. She has been very sleepy right after she receives Keppra. Her speech is much improved. Patient has been having sporadic headache. At present patient is laying comfortably in the bed. Patient's son has mentioned that she was slightly agitated yesterday but today she is more "calm". Please refer to examination below. 12/04/2023: Patient was seen for a follow-up. Patient's both daughters and son were present today. Per patient's daughters report, patient was much better earlier, talked for about 20 minutes and was doing and talking very well. Now she is sleeping, again scattered thinking. She has been started empirically on antibiotics (Unasyn). Also has hyponatremia for which sodium tablets will be started. Objective - Vital Signs Vital signs: Vital Signs Temp 97.9 F 12/09/23 07:36 Pulse 55 L 12/09/23 11:12 Resp 20 12/09/23 13:18 BP 111/47 12/09/23 11:12 Pulse Ox 97 12/09/23 11:12 FiO2 Intake & Output 12/08/23 12/09/23 12/09/23 18:59 06:59 18:59 Intake Total 898 240 670 Output Total 200 600 400 Balance 698 -360 270 Intake: Oral 898 240 240 Blood Product 430 Output: Urine 200 600 400 Other: Voiding Method Toilet Bedside Commode Bedside Commode # Voids 1 1 1 # Bowel Movements 1 - Exam 12/09/2023: Patient asleep. Patient did not wake up, was pleasant. Detailed examination deferred. 12/08/2023: Patient is fully alert and awake. Speech and language functions appears normal. Patient was able to name all objects presented including knuckles, earlobe, and pen.. She was able to repeat very well. Patient knows that she lives in [facility] in [place] and that she is in the hospital but does not know the name. Her speech is very clear with no dysarthria. Her face is symmetric, visual farmer full with no neglect. On muscle strength testing there is no pronator drift and the muscle strength is normal. Sensory to touch is equal. No ataxia for [id number] testing. Her right arm is swollen and bruised from previous procedure. - Labs CBC & Chem 7: 12/07/23 08:44 12/09/23 06:04 Labs: Abnormal Lab Results - Last 24 Hours (Table) 12/09/23 Range/Units 06:04 Sodium 131 L (137-145) mmol/L BUN 48 H (7-17) mg/dL Creatinine 1.61 H (0.52-1.04) mg/dL Assessment and Plan Assessment: * Acute left temporal lobe intraparenchymal hemorrhage 1.7 x 0.8 cm. No significant mass effect or midline shift. No evidence of ischemic infarction. Hemorrhage likely related to antiplatelets/anticoagulants. * Altered mental status, with some expressive aphasia, likely due to above. Also some component of hyponatremia contributing to AMS. Mentation much improved. * Acute DE, status post cardiac catheterization and cardiac stenting times twice (11/30/2023 and 12/03/2023). * Hyponatremia, suspect SIADH. Lowest level was 120, but now sodium improved to 133 * History of right lower extremity DVT, on Xarelto since 11/22/2023, now off. * Hypertension * Prediabetes * Hyperlipidemia * Obesity * CHF with EF 35% Plan: * Repeat CT head 12/06/2023 at around 4 PM revealed slight reduction in the size of acute left temporal lobe hemorrhage measuring 13.5 x 17 mm. I personally reviewed CT head, agree with the findings. * As patient is doing clinically better, we will continue aspirin and Plavix 75 mg. * Patient possibly will be transferred to rehab tomorrow. We will repeat CT head in the morning to assess for stability of the hemorrhage. * Patient is not somnolent with Keppra 500 mg at bedtime. She will continue the same. No seizure like activity noted clinically or on the EEG. No prior history of seizures. * Patient is off Xarelto, Kcentra has been given. * Patient had recent acute DE and cardiac stents, therefore needs to be on antiplatelet medication. Noteworthy is that there was no interruption of dual antiplatelet medications. * Initial EEG 12/04/2023 was abnormal due to background slowing of moderate degree. This is suggestive of generalized cerebral dysfunction as can be seen with toxic metabolic encephalopathy or related to diffuse structural brain abnormality. Clinical correlation is recommended. No epileptiform activity was seen. * Repeat EEG 12/07/2023 was abnormal due to presence of frequent focal slowing in the left temporal region, suggestive of focal cortical neuronal dysfunction. No definitive epileptiform activity was seen. Otherwise the patient was mostly drowsy and asleep during the study. Mild underlying encephalopathy cannot be ruled out. Clinical correlation is recommended. * 2D echo from 12/01/2023 revealed severe left ventricular systolic dysfunction with EF 35%. Akinetic apex. Mild aortic and tricuspid regurgitation. Mildly increased left atrial volume. * DVT prophylaxis, SCDs, if no medical contraindication. No anticoagulants because of intracranial bleed. * Treatment of hyponatremia/SIADH as per IM. Her most recent sodium is 132, much better. * Telemetry monitoring showing sinus repeat EEG bradycardia in the 48. * Swelling in the right arm, will defer to IM. Recommend cold compresses to the wrist region. * Discussed with family members. * Dr. Elian Aguilar to resume neurology service in the morning.
--- NOTE | 2023-12-10 10:27 | P.PN ---
Subjective Patient is seen in follow-up for hyponatremia. Sodium level 131 yesterday. Renal function stable the last 3 days. Oral intake improved. [place] catheter removed December 07, 2023. Has been voiding on her own. Blood pressure stable. Vital signs are stable. General: No acute distress. HEENT: Head exam is unremarkable. LUNGS: No audible rhonchi or wheezes. HEART: Rate and Rhythm are regular. ABDOMEN: Obese, nontender. EXTREMITITES: 1+ edema. Objective - Vital Signs Vital signs: Vital Signs Temp 98.2 F 12/10/23 09:07 Pulse 69 12/10/23 09:07 Resp 16 12/10/23 09:07 BP 146/68 12/10/23 09:07 Pulse Ox 98 12/10/23 09:07 FiO2 Intake & Output 12/09/23 12/10/23 12/10/23 18:59 06:59 18:59 Intake Total 1288 10 Output Total 1100 1150 Balance 188 -1150 10 Intake: IV 10 Invasive Line 6 10 Oral 1288 0 Output: Urine 1100 1150 Other: Voiding Method Bedside Commode Bedside Commode # Voids 1 # Bowel Movements 1 - Labs CBC & Chem 7: 12/07/23 08:44 12/09/23 06:04 Assessment and Plan Plan: Assessment: 1. 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 [facility]. Off IV fluids. Sodium level improved. Urine sodium 45 and urine osmolality 566. TSH normal. 2. Acute ST elevated myocardial infarction status post cardiac catheterization x 2 with stent placement to the LAD and RCA. 3. Cardiomyopathy with ejection fraction of 35%. 4. Benign hypertension. Stable. 5. Acute CVA with left temporal bleed. 6. Hypothyroidism maintained on Synthroid. 7. Acute kidney injury secondary to vasomotor nephropathy from low blood pressures and further worsened with the use of lisinopril/aldactone. Also received IV contrast for cardiac catheterization November 29 and 2023. Creatinine stable at 1.61 yesterday. UA benign. No hydronephrosis noted on kidney ultrasound. Plan: Maintain fluid restriction. Encouraged oral intake. Status post Samsca yesterday. Add Lasix 20 mg once daily. Avoid nephrotoxins. Continue to monitor renal function and urine output.
[2023-12-10] MEDS: FUROSEMIDE 20 MG TAB PO SCH (11:30)
[2023-12-10 12:31] LABS: African American GFR (CKD) 50 (>60 ml/min/1.73 sqM); Anion Gap 3 mmol/L; Blood Urea Nitrogen 40 mg/dL (7-17); Calcium 9.3 mg/dL (8.4-10.2); Carbon Dioxide 30 mmol/L (22-30); Chloride 103 mmol/L (98-107); Glucose 108 mg/dL (74-99); Magnesium 2.1 mg/dL (1.6-2.3); Non-African American GFR(CKD) 43 (>60 ml/min/1.73 sqM); Potassium 4.9 mmol/L (3.5-5.1); Sodium 136 mmol/L (137-145)
--- NOTE | 2023-12-10 13:16 | P.PN ---
Subjective Progress Note Date: 12/10/23 * 88-year-old patient with past medical history significant for deep vein thrombosis already on anticoagulation with Xarelto, history of hypertension, hypothyroid, hyperlipidemia presents to the emergency department with complaints of new onset chest pain. Patient had acute onset of chest discomfort and EMS was called. Upon presentation to ED patient was noted to have waited [place] involving anterior lateral leads. Patient underwent cardiac catheterization it showed two-vessel coronary artery disease with stenosis and LAD as well as RCA. Workup in ER included CBC which showed WBC count of 11.2 hemoglobin 12.7 platelet count of 296. INR of 1.3 The time of presentation initial blood work showed sodium 130, potassium 5.2 which improved to 4.4 creatinine of 1.06 which improved to 0.87, troponin of 1.82 urinalysis was done which was within normal limit Patient underwent cardiac catheterization and was transferred to medical ICU for further manage 12/02/23 : Patient transferred out of medical ICU, echocardiogram completed shows ejection fraction of 35%, patient remains chest pain-free, patient does complain of lower extremity paresthesias, will need outpatient follow-up probably will need nerve conduction study 12/03/23: , blood work reviewed hemoglobin 11.2, serum chemistry revealed sodium 127, nephrology consulted, urine osmolality urine sodium levels ordered. Nephrology consulted chlorothiazide remain on hold, available had gone for cardiac catheterization. Will follow-up postcardiac catheterization Postcardiac catheterization patient had a significant and went and was noted to have altered mental status and nausea, patient had a CT head done which showed intraparenchymal hemorrhage, aspirin and Plavix was discontinued Xarelto was discontinued as well Kcentra was ordered however family deferred, CODE STATUS was changed to no code as well. Follow-up CT head has been ordered 12/04/23 : Patient seen and evaluated at bedside, patient is drowsy however easily arousable, continues to remain disoriented, repeat CT findings discussed with family, we will continue to follow along if patient does not improve family would like to pursue hospice 12/05/2023 Patient is still somewhat confused but is better than yesterday, she is able to follow simple commands and answer some simple questions, family at bedside thinks some improvement. Patient is not able to eat, only drinking little liquid She has evidence of hyponatremia and received Samsca x 2, her sodium went up to 122 up to 127 today. Also she has evidence of acute anterior lateral STEMI status post PCI of LAD and RCA, currently she is placed on aspirin and Plavix, no evidence of more bleeding She has acute left intra temporal bleed, Xarelto was placed on hold. Neurology following. 12/07/2023 Patient today mentation is still improving and patient is back to baseline, She is with intraparenchymal hemorrhage which is a stable, she remains on aspirin and Plavix while Xarelto placed on hold. She is status post stent x 2 and needs dual antiplatelet therapy Also her sodium improved 132 today after she received Samsca and she remains on fluid restriction Yesterday Aldactone was added, creatinine today is 1.7. We are going to discontinue Aldactone and lisinopril and keep monitoring creatinine. Patient with no other symptoms She remains on Unasyn for aspiration pneumonia which can be switched to oral antibiotics upon discharge 12/08/23: Patient seen and evaluated at bedside, patient is awake and alert family at bedside following commands able to have a conversation. Follow-up potassium levels reviewed potassium has improved. Follow-up on basic metabolic panel, patient will need discharge to subacute rehab once medically stable 12/09/23: Patient seen and evaluated at bedside, patient mentation has improved however does have episode of delirium, blood pressure reviewed, creatinine reviewed seem to have stabilized potassium within normal limits as well appreciate input from nephrology sodium 131, neurology following as well. Patient following commands mentation has improved 12/10/23: Patient seen and evaluated at bedside, mentation has improved, seen by neurology and cardiology, patient will need to be discharged to subacute rehab [facility] will coordinate with case management regarding discharge , serum chemistry showed sodium 136, creatinine 1.16 magnesium 2.1. Follow-up CT head ordered which has been ordered . PHYSICAL EXAMINATION: GENERAL: The patient is alert and oriented 3 , ill appearance, bruising noted HEENT: Pupils are round and equally reacting to light. EOMI. CARDIOVASCULAR: S1 and S2 present. No murmurs, rubs, or gallops. PULMONARY: Chest is clear to auscultation, no wheezing or crackles. ABDOMEN: Soft, nontender, nondistended, normoactive bowel sounds. No palpable organomegaly. MUSCULOSKELETAL: No joint swelling or deformity. EXTREMITIES: No cyanosis, clubbing, or pedal edema. NEUROLOGICAL: Alert to person place and situation speech has improved does get forgetful during conversation moving upper and lower extremity Assessment and plan * ST elevated ND with coronary artery disease s/p PCI to LAD, PCI to RCA * Intraparancymal hemorrhage involving left temporal lobe 1.8 cm * Left parietal and occipital lobe infarct * Aspiration pneumonia * Ischemic cardiomyopathy with acute systolic congestive heart failure * S/p cardiac catheterization * Acute hyponatremia * Hx of DVT * Hypertension * Hyperlipidemia * Leukocytosis likely reactive * In regards to intraparenchymal hemorrhage, neurology consulted, serial CTs completed, continue Keppra, patient back on antiplatelet, Xarelto continue to remains on hold, unless clearance given from neurology Xarelto will remain on hold * For coronary artery disease, aspirin and Plavix was initially discontinued which has been resumed since 12/03, continue to monitor * In regards to history of hypertension> hydrochlorothiazide, lisinopril remain on hold, nephrology following. * In regards to hyponatremia urine osmolality urine sodium serum osmolality ordered, nephrology following given tolvaptan follow-up sodium 133 improved * Regards to hyperlipidemia continue Lipitor * In regards to aspiration pneumonia, transition from Unasyn to Augmentin day 3 of 5 * In regards to DVT patient was on Xarelto prior to admission which has been discontinued secondary to intracranial bleed, SCDs for DVT prophylax Objective - Vital Signs Vital signs: Vital Signs Temp 98.2 F 12/10/23 09:07 Pulse 69 12/10/23 09:07 Resp 16 12/10/23 09:07 BP 146/68 12/10/23 09:07 Pulse Ox 98 12/10/23 09:07 FiO2 Intake & Output 12/09/23 12/10/23 12/10/23 18:59 06:59 18:59 Intake Total 1288 10 Output Total 1100 1150 Balance 188 -1150 10 Intake: IV 10 Invasive Line 6 10 Oral 1288 0 Output: Urine 1100 1150 Other: Voiding Method Bedside Commode Bedside Commode # Voids 1 # Bowel Movements 1 - Labs CBC & Chem 7: 12/07/23 08:44 12/10/23 11:13
--- NOTE | 2023-12-10 15:14 | P.PN ---
Subjective Progress Note Date: 12/10/23 HISTORY OF PRESENT ILLNESS: This is an 88-year-old female with past medical history of hypertension, DVT in the right leg following venous ablation. Patient presented to the hospital with chest pain/pressure. EKG showed ST segment elevation and 1 and aVL suggestive of acute anterior lateral myocardial infarction. Patient underwent emergent cardiac catheterization which revealed two-vessel coronary artery disease with a focal 95% stenosis involving the proximal LAD and 60 to 70% involving the right coronary artery. Patient subsequently underwent successful stenting of the proximal LAD artery. 12/01 Due to the significant disease involving the right coronary artery, patient will be scheduled for IFR and intervention on Sunday with Dr. Woodward. Patient and daughter have been updated and all questions have been answered. We will try to obtain records from [facility] on for cardiac catheterization report. Patient is on Xarelto long-term for DVT and we will plan to hold the m orning dose on Sunday only. Blood pressure 111/77, heart rate in the 70s and 80s. Pulse ox 96% on room air. Repeat blood work reveals hemoglobin 11.6, WBC improved to 10.1. Sodium 127, potassium 4.5, BUN 28 creatinine 0.8. Echocardiogram reveals EF of 30 to 35%. Mildly increased left ventricular diastolic volume. Moderately increased left ventricular systolic volume. Moderately decreased left ventricular ejection fraction. Akinetic ballooning apex. Patient was previously following with a purse seining hand out of [facility] and plans to follow-up with Dr. Mook Cortez at the time of discharge. 12/04/2023 Patient is status post repeat cardiac catheterization yesterday with Dr. Woodward. FFR of the RCA was performed which came in to be ischemic. Patient underwent stenting of the mid RCA. Post cardiac cath, the patient developed altered mental status. She underwent CT of the head which revealed 1.8 cm hemorrhage of the left temporal lobe. Patient's Xarelto, aspirin, and Plavix were all discon tinued. Patient's family elected to continue with conservative management and declined transfer to tertiary care center. Repeat CAT scan this morning revealed interval decrease in size of left temporal lobe and interparenchymal hemorrhage. The patient is examined this morning at the bedside. Patient's family states that she has been lethargic most of the day. Patient denies any chest pain or pressure. She denies any shortness of breath. Patient responds "yeah" to majority of questions asked, even if the question is not a yes/no question. Telemetry reveals sinus mechanism in the 80s. 12/05/2023 Patient examined this morning at the bedside. Patient's family is present. Patient is much more awake today. She is alert and answering questions appropriately. She denies chest pain or pressure. She denies shortness of breath. Vital signs are stable. Sodium level today 127. Repeat EKG from this morning does not reveal any new ischemic changes. Telemetry reveals sinus mechanism. 12/06/2023 Patient examined this morning at the bedside. Patient is sleeping but easily arousable to verbal stimuli. She denies chest pain or pressure. She denies shortness of breath. Patient's family states she attempted to get into the chair yesterday but was too weak. Sodium today 129. 12/07/2023 Patient examined this morning. Patient is sitting up in the chair. Patient's mentation continues to improve. She denies chest pain or pressure. She denies shortness of breath. Vital signs are stable. Patient's sodium improved to 132 today. However her creatinine has worsened with a creatinine of 1.7. 12/08/2023 Patient examined this morning. She is sitting up in the chair. She is alert and oriented. Patient's family is present. Patient currently denies any chest pain or pressure. She denies any shortness of breath. Sodium today is 133. Creatinine is 1.69. 12/09/2023 Patient examined this morning. She is sitting up in the chair. Patient's family is present. Patient denies chest pain or pressure. She denies shortness of breath. Vital signs are stable. Sodium today 131. Creatinine 1.6. 12/09 Patient has only minimal edema. Her renal function is improving and nephrology has started her on Lasix 20 mg daily. Blood pressure 116/53, heart rate in the 50s and 60s. Repeat blood work reveals sodium 136, potassium 4.9, BUN 40 and creatinine 1.16. PHYSICAL EXAM: VITAL SIGNS: Reviewed. GENERAL: Well-developed in no acute distress. NECK: Supple. No JVD or thyromegaly LUNGS: Respirations even and unlabored. Lungs essentially clear to auscultation bilaterally. HEART: Regular rate and rhythm. S1 and S2 heard. EXTREMITIES: Normal range of motion. No clubbing or cyanosis. Peripheral pulses intact. No lower extremity edema. Bruising to right arm noted. ASSESSMENT: Acute anterior lateral STEMI, status post PCI of the proximal LAD 11/30/2023 and PCI of the mid RCA on 12/03/2023 Ischemic cardiomyopathy, EF 30 to 35% Acute left temporal lobe intraparenchymal hemorrhage Altered mental status with expressive aphasia Hyponatremia, improving Acute kidney injury Hypertension Hyperlipidemia History of DVT PLAN: Continue aspirin and Plavix Continue to hold Xarelto Continue additional cardiac medications Nephrotoxic agents have been discontinued. Continue to monitor kidney function Further recommendations pending patient course Nurse practitioner note has been reviewed by physician. Signing provider agrees with the documented findings, assessment, and plan of care documented by GRAIN DRIER OPERATOR as a scribe. Objective - Vital Signs Vital signs: Vital Signs Temp 98.5 F 12/10/23 11:27 Pulse 53 L 12/10/23 11:27 Resp 18 12/10/23 11:27 BP 116/53 12/10/23 11:27 Pulse Ox 97 12/10/23 11:27 FiO2 Intake & Output 12/09/23 12/10/23 12/10/23 18:59 06:59 18:59 Intake Total 1288 488 Output Total 1100 1150 Balance 188 -1150 488 Intake: IV 10 Invasive Line 6 10 Oral 1288 478 Output: Urine 1100 1150 Other: Voiding Method Bedside Commode Bedside Commode Bedside Commode # Voids 1 # Bowel Movements 1 - Labs CBC & Chem 7: 12/07/23 08:44 12/10/23 11:13 Labs: Abnormal Lab Results - Last 24 Hours (Table) 12/10/23 Range/Units 11:13 Sodium 136 L (137-145) mmol/L BUN 40 H (7-17) mg/dL Creatinine 1.16 H (0.52-1.04) mg/dL Glucose 108 H (74-99) mg/dL
--- NOTE | 2023-12-10 17:19 | CT ---
EXAMINATION TYPE: CT brain wo con DATE OF EXAM: 12/10/2023 COMPARISON: 12/06/2023 HISTORY: Follow up IC[facility] CT DLP: 1012.7 mGycm Automated exposure control for dose reduction was used. FINDINGS: The focal parenchymal hemorrhage in the left temporal lobe is again seen but appears less dense than on the prior study. No new acute hemorrhages are seen. The ventricles, basal cisterns and sulci over convexities are moderately enlarged consistent with mo derate generalized atrophy, appropriate for the patient's age. There is no mass effect or shift of mi dline structures. There is small calcification in the left basal ganglia. There is mild decreased density in the periventricular white matter consistent with chronic ischemic white matter demyelination. The posterior fossa and the brainstem, fourth ventricle and cerebellopontine angles are grossly sedrick l. Intraorbital contents appear normal symmetric. Visualized paranasal sinuses and mastoid air cells are well aerated. IMPRESSION: 1. Acute hemorrhage in the left temporal lobe appears less dense than on the prior study. 2. No mass effect or shift of midline structures. 3. Stable senescent changes. 4.No new hemorrhage is seen.. IMPRESSION:
[2023-12-11 09:36] LABS: African American GFR (CKD) 57 (>60 ml/min/1.73 sqM); Anion Gap 5 mmol/L; Blood Urea Nitrogen 35 mg/dL (7-17); Calcium 9.1 mg/dL (8.4-10.2); Carbon Dioxide 26 mmol/L (22-30); Chloride 103 mmol/L (98-107); Glucose 121 mg/dL (74-99); Non-African American GFR(CKD) 49 (>60 ml/min/1.73 sqM); Sodium 134 mmol/L (137-145)
[2023-12-11 09:43] LABS: Magnesium 1.8 mg/dL (1.6-2.3); Potassium 4.9 mmol/L (3.5-5.1)
--- NOTE | 2023-12-11 10:30 | P.PN ---
Subjective Patient is seen in follow-up for hyponatremia. Sodium level 134 today. Renal function improved. Oral intake improved. Barksdale catheter removed December 07, 2023. Has been voiding on her own. Blood pressure stable. Family present at bedside. Vital signs are stable. General: No acute distress. HEENT: Head exam is unremarkable. LUNGS: No audible rhonchi or wheezes. HEART: Rate and Rhythm are regular. ABDOMEN: Obese, nontender. EXTREMITITES: Trace edema. Objective - Vital Signs Vital signs: Vital Signs Temp 98.1 F 12/11/23 09:41 Pulse 64 12/11/23 09:41 Resp 18 12/11/23 09:41 BP 124/66 12/11/23 09:41 Pulse Ox 97 12/11/23 09:41 FiO2 Intake & Output 12/10/23 12/11/23 12/11/23 18:59 06:59 18:59 Intake Total 608 190 Output Total 700 400 Balance 608 -700 -210 Weight 86 kg Intake: IV 10 10 Invasive Line 6 10 10 Oral 598 180 Output: Urine 700 400 Other: Voiding Method Bedside Commode Bedside Commode # Voids 2 # Bowel Movements 1 - Labs CBC & Chem 7: 12/07/23 08:44 12/11/23 08:04 Labs: Abnormal Lab Results - Last 24 Hours (Table) 12/10/23 12/11/23 Range/Units 11:13 08:04 Sodium 136 L 134 L (137-145) mmol/L BUN 40 H 35 H (7-17) mg/dL Creatinine 1.16 H (0.52-1.04) mg/dL Glucose 108 H 121 H (74-99) mg/dL Assessment and Plan Plan: Assessment: 1. 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 Status post [facility] this admission. Off IV fluids. Sodium level improved. Urine sodium 45 and urine osmolality 566. TSH normal. 2. Acute ST elevated myocardial infarction status post cardiac catheterization x 2 with stent placement to the LAD and RCA. 3. Cardiomyopathy with ejection fraction of 35%. 4. Benign hypertension. Stable. 5. Acute CVA with left temporal bleed. 6. Hypothyroidism maintained on Synthroid. 7. Acute kidney injury secondary to vasomotor nephropathy from low blood pressures and further worsened with the use of lisinopril/aldactone. Also received IV contrast for cardiac catheterization November 29 and 2023. Renal function improved and back to near baseline. UA benign. No hydronephrosis noted on kidney ultrasound. Plan: Maintain fluid restriction. Encouraged oral intake. Maintain oral Lasix. Avoid nephrotoxins. Continue to monitor renal function and urine output. Repeat BMP and magnesium level 2 to 3 days postdischarge. Follow-up outpatient in 1 week.
--- NOTE | 2023-12-11 12:16 | P.DS ---
Providers Date of admission: 11/30/23 21:56 Attending physician: Oscar Castellanos MD Consults: 11/30/23 23:01 Consult Physician Routine Consulting Provider: [facility] Consult Reason/Comments: Post Interventional Patient Do you want consulting provider notified?: Already Contacted 12/03/23 09:54 Consult Physician Routine Consulting Provider: Danette Baker Consult Reason/Comments: Acute hyponatremia Do you want consulting provider notified?: Yes 12/03/23 11:45 Consult Physician Routine Consulting Provider: [facility] Consult Reason/Comments: Post Interventional Patient Do you want consulting provider notified?: Already Contacted 12/03/23 14:05 Consult Physician Routine Consulting Provider: Qing Pool Consult Reason/Comments: Postcardiac catheterization slurred speech suspect CVA Do you want consulting provider notified?: Yes 12/03/23 15:28 Consult Physician Urgent Consulting Provider: Jessica Ponce Consult Reason/Comments: ICU management Do you want consulting provider notified?: Yes 12/03/23 16:10 Consult Physician Stat Consulting Provider: Nii Higuera Consult Reason/Comments: Reversal of Xarelto, Aspirin, and Plavix related to brain CT results. Do you want consulting provider notified?: Yes Primary care physician: Onur Billy MD Hospital Course: Final Diagnosis Acute ST elevation IA status post PCI to the LAD and RCA maintained on dual antiplatelet therapy with aspirin and Plavix Acute left temporal lobe intraparenchymal hemorrhage, 1.8 cm stable on most recent brain CT and patient will follow-up with neurology on discharge Left Parietal and occipital lobe infarct Ischemic cardiomyopathy wtih EF 30-35% with acute systolic heart failure Hyponatremia secondary to SIADH from the intraparenchymal hemorrhage status post samsca and sodium level has improved Acute kidney injury prerenal due to hypotension. Improved. Avoid nephrotoxic agents. Hx of DVT, xarelto is now being held Hypertension Hyperlipidemia Leukocytosis likely reactive and normalized. Discharge Disposition Patient is medically stable for discharge to subacute rehab. Patient will continue on Keppra on discharge and wrote continue on dual antiplatelet therapy with aspirin and Plavix. Xarelto remains on hold at this time. Patient will continue on oral Lasix on discharge. patient will continue on Lipitor. Patient has completed course of antibiotic therapy for the aspiration pneumonia and will not require any further antibiotics on discharge. Patient will repeat a BMP magnesium level in 2 to 3 days. Follow-up with nephrology 1 week postdischarge. Patient will also follow-up with cardiology with Dr. Cortez in 1 week and will need to see a neurologist on discharge in 1 to 2 weeks. Hospital Course This is an 88-year-old female with a past medical history significant for deep vein thrombosis anticoagulated with Xarelto, hypertension, hypothyroidism, hyperlipidemia. Patient came into the ER for a acute chest pain and was brought in by EMS. Concern for acute IA involving the anterior or lateral leads patient underwent cardiac catheterization which revealed two-vessel coronary artery disease with stenosis of the LAD and RCA and underwent percutaneous intervention. Blood work reveals a white blood cell count of 11.2, hemoglobin 12.7, platelet count of 296 and INR 1.3. Sodium was 130, potassium 5.2, creatinine 1.06 and troponin elevation. UA was within normal limits. Patient was transferred to the ICU post cath for further monitoring. Echocardiogram reveals an EF of 35%. Patient was chest pain-free and was transferred out of the intensive care unit. Patient did complain of lower extremity paresthesias. Patient became hyponatremic with sodium down to 127 with neurology consultation and there was also concern for altered mental status and nausea. Brain CT revealed an intraparenchymal hemorrhage. Aspirin Plavix and Xarelto were discontinued patient was offered Kcentra however family did refuse this medication. Patient has been made a DO NOT RESUSCITATE DO NOT INTUBATE. Neurology was consulted. Patient was treated for the hyponatremia with Samsca with improvement in her sodium levels. She had repeat imaging completed which shows a stable intraparenchymal hemorrhage and was resumed back on dual antiplatelet therapy with aspirin and Plavix. EEG was done which was an abnormal study suggestive of focal cortical neuronal dysfunction with no definitive epileptiform activity was seen. Was concern for staring spells and possible seizure-like activity for this reason patient was started on Keppra and will continue on discharge. Patient again had a repeat brain CT which reveals left pleural lobe acute hemorrhage appears less dense. She is alert x 3 she does not have any focal neurological deficits but is diffusely weak and does require subacute rehab on discharge. Her most recent blood work reveals a sodium level of 134, potassium level 4.9, BUN of 35 and a creatinine of 1.03. Dynamically she is stable with a temperature of 97.8, heart rate in the 60s, blood pressure 138/67 and she is 98% on room air. Please see medication reconciliation for a list of current medications. Thank you for allowing us to participate in the care of this patient. The impression and plan of care has been dictated by Therese Hernández, Nurse Practitioner as directed. Dr. Paola MD I have performed a history and physical examination and medical decision making of this patient, discussed the same with the dictator, and agree with the dictators assessment and plan as written, documented as a scribe. Based on total visit time, I have performed more than 50% of this visit. Patient Condition at Discharge: Fair Plan - Discharge Summary Discharge Rx Participant: Yes New Discharge Prescriptions: No Action Levothyroxine Sodium [Synthroid] 25 mcg PO DAILY hydroCHLOROthiazide [Hydrodiuril] 25 mg PO DAILY Atorvastatin [Lipitor] 10 mg PO DAILY Rivaroxaban [Xarelto] 20 mg PO DAILY Metoprolol Tartrate [Lopressor] 12.5 mg PO BID lisinopriL [Zestril] 10 mg PO BID Discharge Medication List Atorvastatin [Lipitor] 10 mg PO DAILY 06/30/19 [History] Levothyroxine Sodium [Synthroid] 25 mcg PO DAILY 06/30/19 [History] hydroCHLOROthiazide [Hydrodiuril] 25 mg PO DAILY 06/30/19 [History] Metoprolol Tartrate [Lopressor] 12.5 mg PO BID 12/01/23 [History] Rivaroxaban [Xarelto] 20 mg PO DAILY 12/01/23 [History] lisinopriL [Zestril] 10 mg PO BID 12/01/23 [History] Follow up Appointment(s)/Referral(s): Onur Billy MD [Primary Care Provider] - 1-2 days Kit Cortez MD [STAFF PHYSICIAN] - 1 Week
--- NOTE | 2023-12-11 14:25 | P.PN ---
Subjective Progress Note Date: 12/11/23 I am seeing the patient for the first time. Please refer to Dr. Pool's notes for further details. It seems the patient has history of DVT and is on Xarelto and has extensive PVD with weakness in legs. It seems she had a headache with nausea and resolved. CT showed left temporal bleed which is improving. Objective - Vital Signs Vital signs: Vital Signs Temp 97.8 F 12/11/23 11:44 Pulse 50 L 12/11/23 11:44 Resp 16 12/11/23 11:44 BP 138/67 12/11/23 11:44 Pulse Ox 98 12/11/23 11:44 FiO2 Intake & Output 12/10/23 12/11/23 12/11/23 18:59 06:59 18:59 Intake Total 608 190 Output Total 700 800 Balance 608 -700 -610 Weight 86 kg Intake: IV 10 10 Invasive Line 6 10 10 Oral 598 180 Output: Urine 700 800 Other: Voiding Method Bedside Commode Bedside Commode Bedside Commode # Voids 2 # Bowel Movements 1 - Exam General: Lying in bed and is not in acute distress. Neuro: The patient is awake, alert, oriented to self, place and time. Is following simple commands. No aphasia or neglect. Pupils are round, equal and reactive to light. Pupils are 3mm. Visual farmer are full to confrontation. EOM is limitation because of cooperation but with limitation no nystamgus. No facial weakness. No dysarthria. Motor: Strength in uppers are 5/5. In lowers is limited but has 4+ to 5-. - Labs CBC & Chem 7: 12/07/23 08:44 12/11/23 08:04 Labs: Abnormal Lab Results - Last 24 Hours (Table) 12/11/23 Range/Units 08:04 Sodium 134 L (137-145) mmol/L BUN 35 H (7-17) mg/dL Glucose 121 H (74-99) mg/dL Assessment and Plan Assessment: * Acute left temporal lobe intraparenchymal hemorrhage 1.7 x 0.8 cm. No significant mass effect or midline shift. No evidence of ischemic infarction. Hemorrhage likely related to antiplatelets/anticoagulants---bleeding is improving * Altered mental status, with some expressive aphasia, likely due to above. Also some component of hyponatremia contributing to AMS. Mentation much improved. * Acute PR, status post cardiac catheterization and cardiac stenting times twice (11/30/2023 and 12/03/2023). * Hyponatremia, suspect SIADH. Lowest level was 120, but now sodium improved to 133 * History of right lower extremity DVT, on Xarelto since 11/22/2023, now off. * Hypertension * Prediabetes * Hyperlipidemia * Obesity * CHF with EF 35% Plan: * Repeat CT head 12/06/2023 at around 4 PM revealed slight reduction in the size of acute left temporal lobe hemorrhage measuring 13.5 x 17 mm. I personally reviewed CT head, agree with the findings. * As patient is doing clinically better, we will continue aspirin and Plavix 75 mg. * Repeat CT head 12/10/2023: Is acute hemorrhage in the left temporal lobe appears less dense than on the prior study. No mass effect or shift of midline structures. Stable senescent change. No new hemorrhage. I personally reviewed CT and agree with report. * Patient is not somnolent with Keppra 500 mg at bedtime. Per Dr. Pool, continue the same. No seizure like activity noted clinically or on the EEG. No prior history of seizures. I recommend titrating down the Keppra down the line and consider in 1-2 weeks going down to 250mg qhs and within 2 weeks after that stop. The daughter wants to continue same dose and will have it adjusted down the line. * Patient is off Xarelto, Kcentra has been given. * Patient had recent acute PR and cardiac stents, therefore needs to be on anti platelet medication. Noteworthy is that there was no interruption of dual antiplatelet medications. * Initial EEG 12/04/2023 was abnormal due to background slowing of moderate degree. This is suggestive of generalized cerebral dysfunction as can be seen with toxic metabolic encephalopathy or related to diffuse structural brain abnormality. Clinical correlation is recommended. No epileptiform activity was seen. * Repeat EEG 12/07/2023 was abnormal due to presence of frequent focal slowing in the left temporal region, suggestive of focal cortical neuronal dysfunction. No definitive epileptiform activity was seen. Otherwise the patient was mostly drowsy and asleep during the study. Mild underlying encephalopathy cannot be ruled out. Clinical correlation is recommended. * 2D echo from 12/01/2023 revealed severe left ventricular systolic dysfunction with EF 35%. Akinetic apex. Mild aortic and tricuspid regurgitation. Mildly increased left atrial volume. * DVT prophylaxis, SCDs, if no medical contraindication. No anticoagulants because of intracranial bleed. * Treatment of hyponatremia/SIADH as per IM. Her most recent sodium is 132, much better. * Telemetry monitoring showing sinus repeat EEG bradycardia in the 48. * Swelling in the right arm, will defer to IM. Recommend cold compresses to the wrist region. * Recommend the patient to follow-up with neurologist as outpatient within 1-2 weeks. * Discussed with family members. There is no further neurological work-up. Time with Patient: Less than 30
--- NOTE | 2023-12-11 16:01 | P.PN ---
Subjective Progress Note Date: 12/11/23 HISTORY OF PRESENT ILLNESS: This is an 88-year-old female with past medical history of hypertension, DVT in the right leg following venous ablation. Patient presented to the hospital with chest pain/pressure. EKG showed ST segment elevation and 1 and aVL suggestive of acute anterior lateral myocardial infarction. Patient underwent emergent cardiac catheterization which revealed two-vessel coronary artery disease with a focal 95% stenosis involving the proximal LAD and 60 to 70% involving the right coronary artery. Patient subsequently underwent successful stenting of the proximal LAD artery. 12/01 Due to the significant disease involving the right coronary artery, patient will be scheduled for IFR and intervention on Sunday with Dr. Woodward. Patient and daughter have been updated and all questions have been answered. We will try to obtain records from [facility] on for cardiac catheterization report. Patient is on Xarelto long-term for DVT and we will plan to hold the m orning dose on Sunday only. Blood pressure 111/77, heart rate in the 70s and 80s. Pulse ox 96% on room air. Repeat blood work reveals hemoglobin 11.6, WBC improved to 10.1. Sodium 127, potassium 4.5, BUN 28 creatinine 0.8. Echocardiogram reveals EF of 30 to 35%. Mildly increased left ventricular diastolic volume. Moderately increased left ventricular systolic volume. Moderately decreased left ventricular ejection fraction. Akinetic ballooning apex. Patient was previously following with a folder gluer operator out of [facility] and plans to follow-up with Dr. Mook Cortez at the time of discharge. 12/04/2023 Patient is status post repeat cardiac catheterization yesterday with Dr. Woodward. FFR of the RCA was performed which came in to be ischemic. Patient underwent stenting of the mid RCA. Post cardiac cath, the patient developed altered mental status. She underwent CT of the head which revealed 1.8 cm hemorrhage of the left temporal lobe. Patient's Xarelto, aspirin, and Plavix were all discon tinued. Patient's family elected to continue with conservative management and declined transfer to tertiary care center. Repeat CAT scan this morning revealed interval decrease in size of left temporal lobe and interparenchymal hemorrhage. The patient is examined this morning at the bedside. Patient's family states that she has been lethargic most of the day. Patient denies any chest pain or pressure. She denies any shortness of breath. Patient responds "yeah" to majority of questions asked, even if the question is not a yes/no question. Telemetry reveals sinus mechanism in the 80s. 12/05/2023 Patient examined this morning at the bedside. Patient's family is present. Patient is much more awake today. She is alert and answering questions appropriately. She denies chest pain or pressure. She denies shortness of breath. Vital signs are stable. Sodium level today 127. Repeat EKG from this morning does not reveal any new ischemic changes. Telemetry reveals sinus mechanism. 12/06/2023 Patient examined this morning at the bedside. Patient is sleeping but easily arousable to verbal stimuli. She denies chest pain or pressure. She denies shortness of breath. Patient's family states she attempted to get into the chair yesterday but was too weak. Sodium today 129. 12/07/2023 Patient examined this morning. Patient is sitting up in the chair. Patient's mentation continues to improve. She denies chest pain or pressure. She denies shortness of breath. Vital signs are stable. Patient's sodium improved to 132 today. However her creatinine has worsened with a creatinine of 1.7. 12/08/2023 Patient examined this morning. She is sitting up in the chair. She is alert and oriented. Patient's family is present. Patient currently denies any chest pain or pressure. She denies any shortness of breath. Sodium today is 133. Creatinine is 1.69. 12/09/2023 Patient examined this morning. She is sitting up in the chair. Patient's family is present. Patient denies chest pain or pressure. She denies shortness of breath. Vital signs are stable. Sodium today 131. Creatinine 1.6. 12/09 Patient has only minimal edema. Her renal function is improving and nephrology has started her on Lasix 20 mg daily. Blood pressure 116/53, heart rate in the 50s and 60s. Repeat blood work reveals sodium 136, potassium 4.9, BUN 40 and creatinine 1.16. 12/10 Patient is planning to go to [facility] for subacute rehab. Family is concerned that her heart rate has been running low and the metoprolol was increased during her stay to 25 mg twice daily. Will plan to decrease this back to 12.5 mg twice daily. Patient has been doing minimal ambulation in her room. Blood pressure 138/67, heart rate 50-64. Repeat blood work reveals sodium of 134, potassium 4.9, BUN 35 creatinine 1.03. PHYSICAL EXAM: VITAL SIGNS: Reviewed. GENERAL: Well-developed in no acute distress. NECK: Supple. No JVD or thyromegaly LUNGS: Respirations even and unlabored. Lungs essentially clear to auscultation bilaterally. HEART: Regular rate and rhythm. S1 and S2 heard. EXTREMITIES: Normal range of motion. No clubbing or cyanosis. Peripheral pulses intact. No lower extremity edema. Bruising to right arm noted. ASSESSMENT: Acute anterior lateral STEMI, status post PCI of the proximal LAD 11/30/2023 and PCI of the mid RCA on 12/03/2023 Ischemic cardiomyopathy, EF 30 to 35% Acute left temporal lobe intraparenchymal hemorrhage Altered mental status with expressive aphasia Hyponatremia, improving Acute kidney injury Hypertension Hyperlipidemia History of DVT PLAN: Continue aspirin and Plavix Continue to hold Xarelto due to intraparenchymal hemorrhage left temporal lobe Continue additional cardiac medications Nephrotoxic agents have been discontinued. Continue to monitor kidney function Patient is cleared by cardiology for discharge and may follow-up in the office in 1 to 2 weeks. Nurse practitioner note has been reviewed by physician. Signing provider agrees with the documented findings, assessment, and plan of care documented by CRITICAL CARE TECHNICIAN as a scribe. Objective - Vital Signs Vital signs: Vital Signs Temp 97.8 F 12/11/23 11:44 Pulse 50 L 12/11/23 11:44 Resp 16 12/11/23 11:44 BP 138/67 12/11/23 11:44 Pulse Ox 98 12/11/23 11:44 FiO2 Intake & Output 12/10/23 12/11/23 12/11/23 18:59 06:59 18:59 Intake Total 608 190 Output Total 700 800 Balance 608 700 -610 Weight 86 kg Intake: IV 10 10 Invasive Line 6 10 10 Oral 598 180 Output: Urine 700 800 Other: Voiding Method Bedside Commode Bedside Commode Bedside Commode # Voids 2 # Bowel Movements 1 - Labs CBC & Chem 7: 12/07/23 08:44 12/11/23 08:04 Labs: Abnormal Lab Results - Last 24 Hours (Table) 12/11/23 Range/Units 08:04 Sodium 134 L (137-145) mmol/L BUN 35 H (7-17) mg/dL Glucose 121 H (74-99) mg/dL
[2023-12-11 16:45] VITALS: BP 132/72; PULSE 60; RESP 20; TEMP 97.6
[2023-12-11] MEDS ORDERED: METOPROLOL TARTRATE 12.5 MG TAB PO SCH (21:00)
== END 2023-12-11 17:36 | DRG 321 ==
LOC: EC 21:19 → 3SCARD 21:56 → 2SICU 23:12 → 3SCARD 12-01 20:50
PROVIDERS: ADMIT Internal Medicine; ATTEND Internal Medicine
PROC: B240ZZ3 Ultrasonography of Single Coronary Artery, Intravascular (ICD-10-PCS; 2023-11-30)
PROC: 027034Z Dilation of Coronary Artery, One Artery with Drug-eluting Intraluminal Device, Percutaneous Approach (ICD-10-PCS; principal; 2023-11-30 21:34)
PROC: 4A023N7 Measurement of Cardiac Sampling and Pressure, Left Heart, Percutaneous Approach (ICD-10-PCS; 2023-11-30 21:34)
PROC: B2111ZZ Fluoroscopy of Multiple Coronary Arteries using Low Osmolar Contrast (ICD-10-PCS; 2023-11-30 21:34)
PROC: 4A10X4Z Monitoring of Central Nervous Electrical Activity, External Approach (ICD-10-PCS; 2023-12-04)
PROC: 4A10X4Z Monitoring of Central Nervous Electrical Activity, External Approach (ICD-10-PCS; 2023-12-07)
PROC: 05HC33Z Insertion of Infusion Device into Left Basilic Vein, Percutaneous Approach (ICD-10-PCS; 2023-12-10)
DX: I21.09 ST elevation (STEMI) myocardial infarction involving other coronary artery of anterior wall (principal); G93.6 Cerebral edema; I50.21 Acute systolic (congestive) heart failure; I61.1 Nontraumatic intracerebral hemorrhage in hemisphere, cortical; N17.0 Acute kidney failure with tubular necrosis; J69.0 Pneumonitis due to inhalation of food and vomit; I82.401 Acute embolism and thrombosis of unspecified deep veins of right lower extremity; Z68.41 Body mass index [BMI] 40.0-44.9, adult; R47.01 Aphasia; D68.32 Hemorrhagic disorder due to extrinsic circulating anticoagulants; E22.2 Syndrome of inappropriate secretion of antidiuretic hormone; T45.515A Adverse effect of anticoagulants, initial encounter; E11.21 Type 2 diabetes mellitus with diabetic nephropathy; I25.10 Atherosclerotic heart disease of native coronary artery without angina pectoris; E78.5 Hyperlipidemia, unspecified; I25.5 Ischemic cardiomyopathy; E66.9 Obesity, unspecified; E03.9 Hypothyroidism, unspecified; R29.702 NIHSS score 2; E86.1 Hypovolemia; I95.9 Hypotension, unspecified; X58.XXXA Exposure to other specified factors, initial encounter; E11.42 Type 2 diabetes mellitus with diabetic polyneuropathy; Z79.01 Long term (current) use of anticoagulants; Z86.718 Personal history of other venous thrombosis and embolism; E11.51 Type 2 diabetes mellitus with diabetic peripheral angiopathy without gangrene; I11.0 Hypertensive heart disease with heart failure; I25.2 Old myocardial infarction; K21.9 Gastro-esophageal reflux disease without esophagitis; R47.02 Dysphasia; Z79.82 Long term (current) use of aspirin; Z79.02 Long term (current) use of antithrombotics/antiplatelets; Z79.890 Hormone replacement therapy; T50.0X5A Adverse effect of mineralocorticoids and their antagonists, initial encounter; T46.4X5A Adverse effect of angiotensin-converting-enzyme inhibitors, initial encounter; Z79.899 Other long term (current) drug therapy; Z86.73 Personal history of transient ischemic attack (TIA), and cerebral infarction without residual deficits; Z90.710 Acquired absence of both cervix and uterus; Z95.5 Presence of coronary angioplasty implant and graft; Z88.2 Allergy status to sulfonamides; I08.2 Rheumatic disorders of both aortic and tricuspid valves
CPT/HCPCS: 36410; 36415; 70450; 71045; 76770; 76937; 80048; 80053; 81003; 83735; 83930; 83935; 84132; 84295; 84300; 84443; 84484; 85025; 85027; 85610; 85730; 86850; 86900; 86901; 92978; 93005; 93306; 93458; 93799; 94760; 95816

== ENCOUNTER 2024-11-15 17:12 | Inpatient (IN) | payer MEDICARE ==
--- NOTE | 2024-11-15 18:19 | XR ---
EXAMINATION TYPE: XR shoulder limited RT DATE OF EXAM: 11/15/2024 6:11 PM COMPARISON: None. CLINICAL INDICATION: Female, 89 years old with history of dislocation, Pain TECHNIQUE: XR shoulder limited RT view(s) obtained. FINDINGS: The acromio-clavicular junction is normal. No acute fractures are identified. There is anterior inferior dislocation of the humeral head in rela tion to the glenoid. A follow up study can be performed 7-10 days from acute trauma for continued pain. MRI can be perfor med if soft tissue evaluation would be of benefit. IMPRESSION: 1. Dislocation of the right humeral head from the glenoid. [facility], , 11/15/2024 6:17 PM
[2024-11-15] MEDS: MIDAZOLAM 2 MG/2 ML VIAL IV STA (19:43)
[2024-11-15] MEDS: SODIUM CHLORIDE 0.9% 500 ML 500 ML IV STA (19:57)
[2024-11-15] MEDS: LIDOCAINE 1% INJ 10MG/ML (20 ML MDV) INTRADERMA ONE (19:57)
[2024-11-15] MEDS: PROPOFOL 10 MG/ML 20 ML VIAL IV STA (19:58)
--- NOTE | 2024-11-15 20:15 | XR ---
EXAMINATION TYPE: XR shoulder complete RT DATE OF EXAM: 11/15/2024 8:02 PM COMPARISON: None. CLINICAL INDICATION: Female, 89 years old with history of post reduction, Pain, history of prior disl ocations. TECHNIQUE: XR shoulder complete RT view(s) obtained. FINDINGS: The humeral head articulates with the glenoid. Some subluxation may be present on the initial image. The acromio-clavicular junction is normal. Appears to be a Hill-Sachs deformity of the humeral head. Glenoid fracture is not clearly identified. Glenohumeral space is preserved. Small amount calcification is above the Hill-Sachs deformity of the humeral head. Follow-up can be performed as clinically indicated IMPRESSION: 1. Reduction of previous dislocation. 2. Hill-Sachs deformity humeral head may be acute from dislocation today. [facility], , 11/15/2024 8:12 PM
[2024-11-15] MEDS ORDERED: NALOXONE 0.4 MG/ML 1 ML VIAL IV PRN (20:25)
--- NOTE | 2024-11-15 20:30 | P.CNOR ---
History of Present Illness - [facility] Consult date: 11/15/24 Requesting physician: Yareli Blount Consult reason: other (Right shoulder dislocation) History of present illness: Patient was transferred from outside emergency room after she went to grab an object at home yesterday at approximately 5 PM and felt her shoulder dislocate. Of note she has had several instances of shoulder instability over the past couple of years however she is usually able to spontaneously relocate the shoulder. She underwent 2 unsuccessful closed reduction attempts at the outside ER. Currently she notes pain to the right shoulder and limited motion she haritha es any numbness or tingling to the right upper extremity she denies any further injuries at this time. 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 Present/[facility] Lab MDRO Source:: [id number] Past Surgical History: Bladder Surgery, Hysterectomy Additional Past Surgical History / Comment(s): bladder biopsy 2 weeks ago, colonoscopy Past Anesthesia/Blood Transfusion Reactions: No Reported Reaction Past Psychological History: No Psychological Hx Reported Smoking Status: Never smoker Past Alcohol Use History: None Reported Past Drug Use History: None Reported - Past Family History Mother Family Medical History: No Reported History Medications and Allergies Home Medications Medication Instructions Recorded Confirmed Type Levothyroxine Sodium [Synthroid] 25 mcg PO DAILY 06/30/19 12/01/23 History Metoprolol Tartrate [Lopressor] 12.5 mg PO BID 12/01/23 12/01/23 History Aspirin 81 mg PO DAILY tab 12/11/23 Rx Atorvastatin [Lipitor] 80 mg PO HS tab 12/11/23 Rx Clopidogrel [Plavix] 75 mg PO DAILY tab 12/11/23 Rx Furosemide [Lasix] 20 mg PO DAILY tab 12/11/23 Rx Nitroglycerin Sl Tabs [Nitrostat] 0.4 mg SUBLINGUAL Q5M PRN tab 12/11/23 Rx Pantoprazole [Protonix] 40 mg PO AC-BID tab 12/11/23 Rx levETIRAcetam [Keppra] 500 mg PO HS tab 12/11/23 Rx Allergies Allergy/AdvReac Type Severity Reaction Status Date / Time Sulfa (Sulfonamide Allergy hot all Verified 11/15/24 17:17 Antibiotics) over Physical Examination On exam of the right shoulder skin is intact there is some appreciable anterior fullness to the right shoulder Patient is globally tender around the right shoulder Patient has intact sensation to light touch throughout the right upper extremity Range of motion of the right shoulder is limited secondary to pain and mechanical blocks Patient is neurovascularly intact to the right upper extremity Intact radial pulse and brisk capillary refill to the hands Results - Diagnostic results Shoulder x-ray: image reviewed (Right shoulder x-ray shows an anterior glenohumeral dislocation with no associated fracture identified there is evidence of a notable Hill-Sachs defect to the humeral head) Assessment and Plan Assessment: Persistent right anterior shoulder dislocation that has failed previous closed reduction attempts at outside ED Discussed with emergency room attending we will plan for conscious sedation and another closed reduction attempt Given her shoulder instability patient will require a period of immobilization in a sling/shoulder immobilizer given her baseline ambulatory requirements of a walker this will require admission for observation as well as PT/OT assessment and possible placement in a rehab facility after discharge from the hospital Plan: Procedure: Right shoulder closed reduction After conscious sedation was administered per the emergency room staff 20 cc of 1% lidocaine without epinephrine was injected into the glenohumeral joint in order to distend the joint capsule a gentle closed reduction maneuver was performed and palpable reduction of the humeral head was noted there was also improved range of motion and no longer any mechanical blocks to shoulder motion imaging was taken to confirm appropriate reduction of the glenohumeral joint, patient was then placed into a shoulder immobilizer with the arm in internal rotation for added stability. Patient was neurovascularly intact to the right upper extremity following close reduction Plan: Nonweightbearing to the right upper extremity Sling should remain in place at all times other than for hygiene when removed patient should avoid external rotation and abduction of the right shoulder Multimodal pain regimen PT/OT evaluation and recommendations for placement after hospitalization Anticipate 2 weeks of sling immobilization followed by initiation of gentle range of motion exercises to the right shoulder with supervised physical therapy
--- NOTE | 2024-11-15 22:08 | ED ---
General Adult HPI - General Chief complaint: Extremity Injury, Upper Stated complaint: Right shoulder pain Time Seen by Provider: 11/15/24 17:38 Source: patient Mode of arrival: EMS Limitations: no limitations - History of Present Illness Initial comments: Eve is a pleasant 89-year-old female who presents the ER today as a transfer from outside hospital. Patient reports she had a fall about a year ago her right shoulder frequently pops in and out of place without much difficulty. She states that yesterday evening she was reaching into her refrigerator to grab a bottle of salad dressing and her shoulder popped out, she could not get it back in and she thought maybe it would go back in on its own but by this morning it had not gone back and so she went to outside hospital for evaluation. At the outside hospital Initially attempted reduction without sedation was unsuccessful and then attempted with sedation again was unsuccessful so she was transferred here. In addition to needing reduction patient walks at all times with a walker and will not be able to ambulate with her arm in a sling so we will need admission to the hospital. Patient reports mild discomfort in the right shoulder. No numbness or tingling in the arm. No discoloration of the arm or cold feeling. - Related Data Home Medications Medication Instructions Recorded Confirmed Levothyroxine Sodium [Synthroid] 25 mcg PO DAILY 06/30/19 12/01/23 Metoprolol Tartrate [Lopressor] 12.5 mg PO BID 12/01/23 12/01/23 Previous Rx's Medication Instructions Recorded Aspirin 81 mg PO DAILY tab 12/11/23 Atorvastatin [Lipitor] 80 mg PO HS tab 12/11/23 Clopidogrel [Plavix] 75 mg PO DAILY tab 12/11/23 Furosemide [Lasix] 20 mg PO DAILY tab 12/11/23 Nitroglycerin Sl Tabs [Nitrostat] 0.4 mg SUBLINGUAL Q5M PRN tab 12/11/23 Pantoprazole [Protonix] 40 mg PO AC-BID tab 12/11/23 levETIRAcetam [Keppra] 500 mg PO HS tab 12/11/23 Allergies Allergy/AdvReac Type Severity Reaction Status Date / Time Sulfa (Sulfonamide Allergy hot all Verified 11/15/24 17:17 Antibiotics) over Review of Systems ROS Statement: Those systems with pertinent positive or pertinent negative responses have been documented in the HPI. ROS Other: All systems not noted in ROS Statement are negative. Past Medical History Past Medical History: Deep Vein Thrombosis (DVT), Hyperlipidemia, Hypertension, Thyroid Disorder Additional Past Medical History / Comment(s): recent blood in urine-now resolved History of Any Multi-Drug Resistant Organisms: CRE Date of last positivie culture/infection: 12/14/23 CP-CRE KPC Carbapenemase Present/[facility] Lab MDRO Source:: [id number] Past Surgical History: Bladder Surgery, Hysterectomy Additional Past Surgical History / Comment(s): bladder biopsy 2 weeks ago, colonoscopy Past Anesthesia/Blood Transfusion Reactions: No Reported Reaction Past Psychological History: No Psychological Hx Reported Smoking Status: Never smoker Past Alcohol Use History: None Reported Past Drug Use History: None Reported - Past Family History Mother Family Medical History: No Reported History General Exam - General Exam Comments Initial Comments: Physical Exam GENERAL: Patient is well-developed and well-nourished. Patient is nontoxic and well-hydrated and is in no distress. HENT: Normocephalic, Atraumatic. EYES: PERRL, EOMI PULMONARY: Unlabored respirations. CARDIOVASCULAR: RRR Warm and well perfused extremities ABDOMEN: Non-distended SKIN: Bruising over the right arm and around the torso consistent with attempted shoulder reduction while torso was held in place with a sheet : Deferred NEUROLOGIC: Alert and oriented Normal speech Normal gait MUSCULOSKELETAL: Right shoulder with palpable deformity PSYCHIATRIC: No SI/HI Limitations: no limitations Course Vital Signs 11/15/24 11/15/24 11/15/24 17:14 18:33 19:42 Temperature 98.4 F Pulse Rate 61 67 68 Respiratory 18 18 16 Rate Blood Pressure 196/92 179/66 179/87 O2 Sat by Pulse 94 L 98 98 Oximetry 11/15/24 11/15/24 11/15/24 19:45 19:50 19:55 Temperature Pulse Rate 67 69 71 Respiratory 24 17 17 Rate Blood Pressure 185/85 141/55 155/59 O2 Sat by Pulse 98 99 99 Oximetry 11/15/24 11/15/24 11/15/24 20:00 20:15 20:30 Temperature Pulse Rate 69 55 L 57 L Respiratory 17 14 15 Rate Blood Pressure 141/55 141/71 187/72 O2 Sat by Pulse 98 98 98 Oximetry 11/15/24 11/15/24 11/15/24 21:00 21:30 22:00 Temperature Pulse Rate 60 58 L 55 L Respiratory 16 15 15 Rate Blood Pressure 177/62 185/80 175/76 O2 Sat by Pulse 98 95 97 Oximetry Procedures - [place] Protocol (Time Out) Procedure Performed:: R shoulder reduction Performing Provider: Sean Winters Nurse: Aleksandra Hernández Respiratory Therapist: Donavon Poon Patient Identification (2 identifiers required): Verbal, Arm Band Patient/Legal Glove Stitcher has Confirmed: Identity, Site, Procedure Site: R shoulder Site Marked: No Site Verified With Patient/Guardian: Yes Final Confirmation: Procedure, Site - Procedural Sedation *Procedural Sedation Start Time: 19:42 *Procedural Sedation Stop Time: 20:00 *Risks,benefits, and alternative therapies discussed?: Yes *Patient indicates understanding of risk/benefit discussion?: Yes *Indications: fracture/dislocation reduction *Previous Adverse Reaction to Anesthesia/Sedation?: No * Testing Complete?: No Reason Test Not Complete:: Age > 60 *ASA Class: II *Mallampati Airway Score: 2 Preparation: monitoring specialist applied, pulse oximeter, capnometry used, supplemental O2 applied, reversal agents at bedside, suction/airway equipment at bedside, IV secured Midazolam: IV Midazolam Dose: 2 IV Propofol Dose (mgs): 100 Complications: none Patient Tolerated Procedure: well, no complications Medical Decision Making - Medical Decision Making Was pt. sent in by a medical professional or institution (BAILEY Clark, ORCHESTRA LEADER, urgent care, hospital, or assisted...) When possible be specific @ -Yes Did you speak to anyone other than the patient for history (EMS, parent, family, police, friend...)? What history was obtained from this source @ -EMS, transferring doctor Did you review nursing and triage notes (agree or disagree)? Why? @ -I reviewed and agree with nursing and triage notes Were old charts reviewed (outside hosp., previous admission, EMS record, old EKG, old radiological studies, urgent care reports/EKG's, assisted records)? Report findings @ -No old charts were reviewed Differential Diagnosis (chest pain, altered mental status, abdominal pain women, abdominal pain men, vaginal bleeding, weakness, fever, dyspnea, syncope, headache, dizziness, GI bleed, back pain, seizure, CVA, palpatations, mental health)? @ -Dislocation - acute v chronic EKG interpreted by me (3pts min.). @ -As above X-rays interpreted by me (1pt min.). @ -Xr right shoulder with obvious anterior inferior dislocation CT interpreted by me (1pt min.). @ -None done U/S interpreted by me (1pt. min.). @ -None done What testing was considered but not performed or refused? (CT, X-rays, U/S, labs)? Why? @ -None What meds were considered but not given or refused? Why? @ -None Did you discuss the management of the patient with other professionals (professionals i.e. , PA, ORCHESTRA LEADER, lab, RT, psych nurse, social service manager, therapist, teacher, surveillance dual rate officer, case assembler)? Give summary @ -Orthopedic surgeon Dr Winters Was smoking cessation discussed for >3mins.? @ -No Was critical care preformed (if so, how long)? @ -No Were there social determinants of health that impacted care today? How? (Homelessness, low income, unemployed, alcoholism, drug addiction, transportation, low edu. Level, literacy, decrease access to med. care, fpc, rehab)? @ -No Was there de-escalation of care discussed even if they declined (Discuss DNR or withdrawal of care, Hospice)? DNR status @ -No What co-morbidities impacted this encounter? (DM, HTN, Smoking, COPD, CAD, Cancer, CVA, ARF, Chemo, Hep., AIDS, mental health diagnosis, sleep apnea, morbid obesity)? @ -None Was patient admitted / discharged? Hospital course, mention meds given and route, prescriptions, significant lab abnormalities, going to OR and other pertinent info. @ -Admitted Patient seen, xray confirms dislocation, findings discussed with Dr Winters who will come to bedside for evaluation Partient sedated with Versed and propofol, Dr. Winters infused lidocaine into the joint capsule and reduced the joint patient was then placed in a sling with shoulder immobilizer Postprocedure x-ray confirms reduction Patient care was discussed with [facility] hospitalist Dr. Monahan who accepts the admission for need for rehab Undiagnosed new problem with uncertain prognosis? @ -No Drug Therapy requiring intensive monitoring for toxicity (Heparin, Nitro, Insulin, Cardizem)? @ -No Were any procedures done? @ -Yes, sedation Diagnosis/symptom? @ -Right shoulder dislocation, recurrent Acute, or Chronic, or Acute on Chronic? @ -Default Uncomplicated (without systemic symptoms) or Complicated (systemic symptoms)? @ -Default Side effects of treatment? @ -No Exacerbation, Progression, or Severe Exacerbation? @ -No Poses a threat to life or bodily function? How? (Chest pain, [place], [place], pneumonia, PE, COPD, DKA, ARF, appy, cholecystitis, CVA, Diverticulitis, Homicidal, Suicidal, threat to staff... and all critical care pts) @ -No Disposition Clinical Impression: Dislocation of shoulder region, Walker as ambulation aid, Risk for falls Disposition: ADMITTED IP TO [facility] Condition: Serious Is patient prescribed a controlled substance at d/c from ED?: No
[2024-11-16] MEDS: LEVOTHYROXINE 25 MCG TAB PO SCH (06:29)
[2024-11-16 06:52] LABS: Appearance,Urine Clear (Clear); Bilirubin,Urine Negative (Negative); Blood,Urine Negative (Negative); Color,Urine Light Yellow; Glucose,Urine (UA) Negative (Negative); Ketones,Urine Negative (Negative); Leukocyte Esterase,Urine Negative (Negative); Nitrite,Urine Negative (Negative); Protein,Urine Negative (Negative); Specific Gravity,Urine 1.018 (1.001-1.035); Urobilinogen,Urine <2.0 mg/dL (<2.0)
[2024-11-16 07:53] LABS: Basophils # (A) 0.03 10*3/uL (0.00-0.10); Basophils % (A) 0.3 %; Eosinophils # (A) 0.06 10*3/uL (0.04-0.35); Eosinophils % (A) 0.6 %; HGB 11.8 g/dL (12.0-15.0); Lymphocytes % (A) 17.5 %; MCH 31.6 pg (27.0-32.0); MCHC 33.7 g/dL (32.0-37.0); MCV 93.6 fL (80.0-97.0); Mean Platelet Volume 9.9 fL (9.5-12.2); Monocytes # (A) 0.87 10*3/uL (0.20-1.00); Neutrophils % (A) 72.2 %; Platelet Count 254 10*3/uL (140-440); RBC 3.74 10*6/uL (4.10-5.20); RDW 13.1 % (11.5-14.5)
[2024-11-16] MEDS: FUROSEMIDE 20 MG TAB PO SCH (08:04)
[2024-11-16] MEDS: CLOPIDOGREL 75 MG TAB PO SCH (08:04)
[2024-11-16] MEDS: ASPIRIN 81 MG PO SCH (08:04)
[2024-11-16] MEDS: PANTOPRAZOLE 40 MG TABLET PO SCH (08:04)
[2024-11-16] MEDS: METOPROLOL TARTRATE 12.5 MG TAB PO SCH (08:04)
[2024-11-16 08:09] LABS: African American GFR (CKD) >90 (>60 ml/min/1.73 sqM); Anion Gap 6 mmol/L; Blood Urea Nitrogen 16 mg/dL (7-17); Calcium 9.7 mg/dL (8.4-10.2); Carbon Dioxide 28 mmol/L (22-30); Chloride 103 mmol/L (98-107); Glucose 98 mg/dL (74-99); Non-African American GFR(CKD) 80 (>60 ml/min/1.73 sqM); Potassium 4.8 mmol/L (3.5-5.1); Sodium 137 mmol/L (137-145)
--- NOTE | 2024-11-16 10:34 | P.HPIM ---
History of Present Illness H&P Date: 11/15/24 Chief Complaint: Right shoulder pain/injury 89-year-old female, history of hypertension, hyperlipidemia, hypothyroidism, who presents the ER today as a transfer from outside hospital. Patient reports she had a fall about a year ago her right shoulder frequently pops in and out of place without much difficulty. She states that yesterday evening she was reaching into her refrigerator to grab a bottle of salad dressing and her shoulder popped out, she could not get it back in and she thought maybe it would go back in on its own but by this morning it had not gone back and so she went to outside hospital for evaluation. At the outside hospital Initially attempted reduction without sedation was unsuccessful and then attempted with sedation again was unsuccessful so she was transferred here. In addition to needing reduction patient walks at all times with a walker and will not be able to ambulate with her arm in a sling so we will need admission to the hospital. X-ray of the shoulder revealed dislocation of right humeral head from the glenoid - Right shoulder x-ray postreduction reveals successful reduction of shoulder Review of Systems REVIEW OF SYSTEMS: CONSTITUTIONAL: No fever, no malaise, no fatigue. HEENT: No recent visual problems or hearing problems. Denied any sore throat. CARDIOVASCULAR: No chest pain, orthopnea, PND, no palpitations, no syncope. PULMONARY: No shortness of breath, no cough, no hemoptysis. GASTROINTESTINAL: No diarrhea, no nausea, no vomiting, no abdominal pain. NEUROLOGICAL: No headaches, no weakness, no numbness. HEMATOLOGICAL: Denies any bleeding or petechiae. GENITOURINARY: Denies any burning micturition, frequency, or urgency. MUSCULOSKELETAL/RHEUMATOLOGICAL: Denies any joint pain, swelling, or any muscle pain. ENDOCRINE: Denies any polyuria or polydipsia. The rest of the 14-point review of systems is negative. Past Medical History Past Medical History: Deep Vein Thrombosis (DVT), Hyperlipidemia, Hypertension, Thyroid Disorder Additional Past Medical History / Comment(s): recent blood in urine-now resolved History of Any Multi-Drug Resistant Organisms: CRE Date of last positivie culture/infection: 12/14/23 CP-CRE KPC Carbapenemase Present/[facility] Lab MDRO Source:: [id number] Past Surgical History: Bladder Surgery, Hysterectomy Additional Past Surgical History / Comment(s): bladder biopsy 2 weeks ago, colonoscopy Past Anesthesia/Blood Transfusion Reactions: No Reported Reaction Past Psychological History: No Psychological Hx Reported Smoking Status: Never smoker Past Alcohol Use History: None Reported Past Drug Use History: None Reported - Past Family History Mother Family Medical History: No Reported History Medications and Allergies Home Medications Medication Instructions Recorded Confirmed Type Levothyroxine Sodium [Synthroid] 25 mcg PO DAILY 06/30/19 11/16/24 History Metoprolol Tartrate [Lopressor] 12.5 mg PO DAILY 12/01/23 11/16/24 History Aspirin 81 mg PO DAILY tab 12/11/23 11/16/24 Rx Atorvastatin [Lipitor] 80 mg PO HS tab 12/11/23 11/16/24 Rx Clopidogrel [Plavix] 75 mg PO DAILY tab 12/11/23 11/16/24 Rx Nitroglycerin Sl Tabs [Nitrostat] 0.4 mg SUBLINGUAL Q5M PRN tab 12/11/23 11/16/24 Rx Acetaminophen [Tylenol 8 Hour] 650 mg PO BID 11/16/24 11/16/24 History Albuterol Inhaler [Ventolin Hfa 2 puff INHALATION RT-Q4H PRN 11/16/24 11/16/24 History Inhaler] Ascorbic Acid/Collagen Hydr 1 cap PO DAILY 11/16/24 11/16/24 History [Collagen Plus Vit C Capsule] Calcium Carb/Mag Ox/Zinc Sulf 1 tab PO HS 11/16/24 11/16/24 History [Tyz-Cbm-Pnsn 334-134-5 mg Tab] Cholecalciferol (Vitamin D3) 50 mcg PO DAILY 11/16/24 11/16/24 History [Vitamin D3 (50 Mcg = 2000 Iu)] Cranberry 4,200 Mg 4,200 mg PO DAILY 11/16/24 11/16/24 History Cyanocobalamin (Vitamin B-12) 1,000 mcg PO DAILY 11/16/24 11/16/24 History [Vitamin B-12] Fluticasone Nasal [place] [Flonase 1 spray EA NOSTRIL DAILY 11/16/24 11/16/24 History Nasal [place]] Folic Acid 0.4 mg PO DAILY 11/16/24 11/16/24 History Furosemide [Lasix] 40 mg PO DAILY 11/16/24 11/16/24 History Inulin/Chromium Picolinate [Fiber 1 tab PO DAILY PRN 11/16/24 11/16/24 History Gummies Chew] Ketoconazole 2% Cream [Nizoral 2%] 1 applic TOPICAL DAILY PRN 11/16/24 11/16/24 History Mupirocin 2% Oint [Bactroban 2% 1 applic TOPICAL DAILY PRN 11/16/24 11/16/24 History Oint] Nystatin 100,000 Unit/gm Powd 1 applic TOPICAL BID PRN 11/16/24 11/16/24 History [Mycostatin Powder] Ondansetron [Zofran] 4 mg PO Q8HR PRN 11/16/24 11/16/24 History Pantoprazole [Protonix] 40 mg PO DAILY 11/16/24 11/16/24 History Potassium Gluconate 99 mg PO DAILY 11/16/24 11/16/24 History Sennosides [Senokot] 8.6 mg PO DAILY PRN 11/16/24 11/16/24 History amLODIPine [Norvasc] 2.5 mg PO DAILY 11/16/24 11/16/24 History polyethylene glycoL 3350 [Miralax] 17 gm PO DAILY PRN 11/16/24 11/16/24 History Allergies Allergy/AdvReac Type Severity Reaction Status Date / Time Sulfa (Sulfonamide Allergy hot all Verified 11/16/24 09:50 Antibiotics) over Physical Exam Vitals: Vital Signs Temp Pulse Resp BP Pulse Ox 11/15/24 18:33 67 18 179/66 98 11/15/24 17:14 98.4 F 61 18 196/92 94 L Intake and Output 11/15/24 11/15/24 11/15/24 06:59 14:59 22:59 Other: Weight 81.647 kg GENERAL: Patient is well-developed and well-nourished. Patient is nontoxic and well-hydrated and is in no distress. HENT: Normocephalic, Atraumatic. EYES: PERRL, EOMI PULMONARY: Unlabored respirations. CARDIOVASCULAR: RRR; Warm and well perfused extremities ABDOMEN: Soft, nontender, non-distended SKIN: Bruising over the right arm and around the torso consistent with attempted shoulder reduction while torso was held in place with a sheet : Deferred NEUROLOGIC:Alert and oriented; Normal speech; Normal gait MUSCULOSKELETAL:Right shoulder with palpable deformity Results CBC & Chem 7: 11/16/24 06:51 11/16/24 06:51 Assessment and Plan Assessment: 1. Right shoulder dislocation - Patient was evaluated by orthopedic surgery and underwent bedside reduction - Postreduction x-rays stable - Left arm/shoulder has been placed in the sling; orthopedic surgery recommending to keep the sling on at all times 2. Inability to ambulate; patient uses walker and upper extremity strength; has not been able to ambulate properly due to pain in the shoulder; PT/OT are consulted; orthopedic surgery recommending nonweightbearing to right upper extremity 3. Risk for falls; patient ambulates with the help of a walker; reports unsteady gait; remains on high risk for falls; PT/OT are consulted 4. Hypertension; Norvasc 2.5 mg daily; metoprolol 12.5 mg daily 5. Hyperlipidemia; Lipitor 80 mg nightly 6. Hypothyroidism; levothyroxine 25 mcg daily 7. Coronary artery disease; remains on aspirin, Lipitor, Plavix and metoprolol DVT prophylaxis; SCDs CODE STATUS; full code
--- NOTE | 2024-11-16 11:11 | P.PN ---
Subjective Progress Note Date: 11/16/24 No acute events overnight. Patient states they have a mild amount of pain in the right shoulder. Patient states they have pain in their right thumb at the interphalangeal joint. Patient denies any falls or injuries to the thumb. Objective - Vital Signs Vital signs: Vital Signs Temp 98.4 F 11/16/24 07:30 Pulse 56 L 11/16/24 07:30 Resp 16 11/16/24 07:30 BP 159/65 11/16/24 07:30 Pulse Ox 94 L 11/16/24 07:30 FiO2 Intake & Output 11/15/24 11/16/24 11/16/24 18:59 06:59 18:59 Output Total 900 Balance -900 Weight 81.647 kg 81.647 kg Output: Urine 900 Straight 900 Other: Voiding Method External Catheter External Catheter - Exam Patient resting sitting up in chair. No acute distress. Patient is awake, alert, unable to answer questions. Right upper extremity exam: Inspection: Patient is in a right arm sling. No obvious deformity of the shoulder. Nontender to palpation over the right shoulder, humerus, radius, ulna, carpals, metacarpals or fingers 2 through 5. Patient states they have tenderness to palpation over the proximal and distal phalanx of the right thumb. Extensor pollicis longus, extensor pollicis brevis, and abductor pollicis longus are intact. Extension and flexion of the interphalangeal joint are intact. Patient's motor function is grossly intact in the axillary, median, radial, ulnar, and anterior interosseous nerve. Patient has 2+ radial pulse, and capillary refill under 2 seconds in all 5 digi ts. - Labs CBC & Chem 7: 11/16/24 06:51 11/17/24 04:33 Labs: Abnormal Lab Results - Last 24 Hours (Table) 11/16/24 Range/Units 06:51 RBC 3.74 L (4.10-5.20) 10*6/uL Hgb 11.8 L (12.0-15.0) g/dL Hct 35.0 L (37.2-46.3) % Assessment and Plan Assessment: Status post closed right shoulder reduction for right anterior shoulder dislocation Right shoulder pain Right thumb pain Plan: Continue nonweightbearing to the right upper extremity Sling should remain in place at all times other than for hygiene when removed patient should avoid external rotation and abduction of the right shoulder. Anticipate 2 weeks of sling immobilization followed by initiation of gentle range of motion exercises to the right shoulder with supervised physical therapy Multimodal pain regimen Plan PT/OT evaluation tomorrow Ordered right hand x-rays. Will reassess tomorrow. I agree with the above interval history, exam and plan. Sean Winters MD
[2024-11-16] MEDS: traMADol 50 MG TAB PO PRN (11:28)
--- NOTE | 2024-11-16 11:32 | XR ---
EXAMINATION TYPE: XR hand complete RT DATE OF EXAM: 11/16/2024 11:23 AM COMPARISON: None. CLINICAL INDICATION: Female, 89 years old with history of Pain, pain TECHNIQUE: 3 view(s) obtained. FINDINGS: There is some soft tissue swelling over the dorsal metacarpal carpal phalangeal joint space. No displaced fractures evident. There is diffuse mild narrowing of the joint spaces. Follow up exams can be performed 7-10 days from acute trauma for continued pain. IMPRESSION: 1. No acute osseous abnormality radiographically apparent. [facility], , 11/16/2024 11:30 AM
--- NOTE | 2024-11-16 16:51 | P.PN ---
Subjective Progress Note Date: 11/16/24 89-year-old female, history of hypertension, hyperlipidemia, hypothyroidism, who presents the ER today as a transfer from outside hospital. Patient reports she had a fall about a year ago her right shoulder frequently pops in and out of place without much difficulty. She states that yesterday evening she was reaching into her refrigerator to grab a bottle of salad dressing and her shoulder popped out, she could not get it back in and she thought maybe it would go back in on its own but by this morning it had not gone back and so she went to outside hospital for evaluation. At the outside hospital Initially attempted reduction without sedation was unsuccessful and then attempted with sedation again was unsuccessful so she was transferred here. In addition to needing reduction patient walks at all times with a walker and will not be able to ambulate with her arm in a sling so we will need admission to the hospital. X-ray of the shoulder revealed dislocation of right humeral head from the glenoid - Right shoulder x-ray postreduction reveals successful reduction of shoulder Objective - Vital Signs Vital signs: Vital Signs Temp 98.4 F 11/16/24 07:30 Pulse 56 L 11/16/24 07:30 Resp 16 11/16/24 07:30 BP 159/65 11/16/24 07:30 Pulse Ox 94 L 11/16/24 07:30 FiO2 Intake & Output 11/15/24 11/16/24 11/16/24 18:59 06:59 18:59 Output Total 900 Balance -900 Weight 81.647 kg 81.647 kg Output: Urine 900 Straight 900 Other: Voiding Method External Catheter External Catheter - Exam Patient is well-developed and well-nourished. Patient is nontoxic and well-hydrated and is in no distress. HENT: Normocephalic, Atraumatic. EYES: PERRL, EOMI PULMONARY: Unlabored respirations. CARDIOVASCULAR: RRR; Warm and well perfused extremities ABDOMEN: Soft, nontender, non-distended SKIN: Bruising over the right arm and around the torso consistent with attempted shoulder reduction while torso was held in place with a sheet : Deferred NEUROLOGIC:Alert and oriented; Normal speech; Normal gait MUSCULOSKELETAL:Right shoulder with palpable deformity - Labs CBC & Chem 7: 11/16/24 06:51 11/16/24 06:51 Labs: Abnormal Lab Results - Last 24 Hours (Table) 11/16/24 Range/Units 06:51 RBC 3.74 L (4.10-5.20) 10*6/uL Hgb 11.8 L (12.0-15.0) g/dL Hct 35.0 L (37.2-46.3) % Assessment and Plan Assessment: 1. Right shoulder dislocation - Patient was evaluated by orthopedic surgery and underwent bedside reduction - Postreduction x-rays stable - Left arm/shoulder has been placed in the sling; orthopedic surgery recommending to keep the sling on at all times 2. Inability to ambulate; patient uses walker and upper extremity strength; has not been able to ambulate properly due to pain in the shoulder; PT/OT are consulted; orthopedic surgery recommending nonweightbearing to right upper extremity 3. Risk for falls; patient ambulates with the help of a walker; reports unsteady gait; remains on high risk for falls; PT/OT are consulted 4. Hypertension; Norvasc 2.5 mg daily; metoprolol 12.5 mg daily 5. Hyperlipidemia; Lipitor 80 mg nightly 6. Hypothyroidism; levothyroxine 25 mcg daily 7. Coronary artery disease; remains on aspirin, Lipitor, Plavix and metoprolol DVT prophylaxis; SCDs CODE STATUS; full code
[2024-11-16] MEDS: levETIRAcetam 500 MG TAB PO SCH (20:41)
[2024-11-16] MEDS: ATORVASTATIN 80 MG TAB PO SCH (20:41)
[2024-11-17] MEDS: HYDROcodone/APAP 7.5-325MG 1 EACH TAB PO PRN (01:31)
[2024-11-17] MEDS: ACETAMINOPHEN TAB 500 MG TAB PO PRN ×2 (01:34→21:32)
--- NOTE | 2024-11-17 08:13 | P.PN ---
Subjective Progress Note Date: 11/17/24 No acute events overnight. Patient states they have a mild amount of pain in the right shoulder. Patient states they continue to have pain in their right thumb at the interphalangeal joint. Objective - Vital Signs Vital signs: Vital Signs Temp 97.8 F 11/17/24 07:01 Pulse 55 L 11/17/24 07:01 Resp 16 11/17/24 07:01 BP 129/54 11/17/24 07:01 Pulse Ox 94 L 11/17/24 07:01 FiO2 Intake & Output 11/16/24 11/17/24 11/17/24 18:59 06:59 18:59 Intake Total 1961 Balance 1961 Intake: Oral 1961 Other: Voiding Method External Catheter Bedside Commode External Catheter # Voids 2 2 # Bowel Movements 2 - Exam Patient resting sitting up in chair. No acute distress. Patient is awake, alert, unable to answer questions. Right upper extremity exam: Inspection: Patient is in a right arm sling. No obvious deformity of the shoulder. Nontender to palpation over the right shoulder, humerus, radius, ulna, carpals, metacarpals or fingers 2 through 5. Extensor pollicis longus, extensor pollicis brevis, and abductor pollicis longus are intact. Extension and flexion of the interphalangeal joint are intact. Patient's motor function is grossly intact in the axillary, median, radial, ulnar, and anterior interosseous nerve. Patient has 2+ radial pulse, and capillary refill under 2 seconds in all 5 digits. - Labs CBC & Chem 7: 11/16/24 06:51 11/17/24 04:33 Labs: Abnormal Lab Results - Last 24 Hours (Table) 11/16/24 Range/Units 06:51 RBC 3.74 L (4.10-5.20) 10*6/uL Hgb 11.8 L (12.0-15.0) g/dL Hct 35.0 L (37.2-46.3) % Assessment and Plan Assessment: Status post closed right shoulder reduction for right anterior shoulder dislocation Right shoulder pain Right thumb pain Plan: Continue nonweightbearing to the right upper extremity Sling should remain in place at all times other than for hygiene when removed patient should avoid external rotation and abduction of the right shoulder. Anticipate 2 weeks of sling immobilization followed by initiation of gentle ra nge of motion exercises to the right shoulder with supervised physical therapy. Right hand x-ray images were reviewed and no sign of acute osseous abnormality. Patient may treat with conservative management of rest, elevation, and ice as needed. Multimodal pain regimen, will defer discharge pain medication to primary team. Plan PT/OT evaluation today. Patient may discharge from an orthopedic standpoint after PT and OT evaluation. If they recommend rehab at time of discharge we would also recommend. Dictation was produced using [employer] dictation software, please excuse any grammatical, word or spelling errors. I agree with the above interval history, exam and plan. Sean Winters MD
[2024-11-17 08:59] LABS: Blood Urea Nitrogen 13.6 mg/dL (9.0-27.0); Calcium 8.6 mg/dL (8.7-10.3); Carbon Dioxide 24.9 mmol/L (21.6-31.8); Chloride 100 mmol/L (96-109); Glucose 123 mg/dL (70-110); Potassium 4.2 mmol/L (3.5-5.5); Sodium 135 mmol/L (135-145)
[2024-11-17] MEDS ORDERED: KETOROLAC 15 MG/ML 1 ML VIAL IVP PRN (14:35)
[2024-11-17] MEDS: HEPARIN SODIUM,PORCINE 5,000 UNIT/ML 1 ML VIAL SQ SCH (21:33)
--- NOTE | 2024-11-17 22:08 | P.PN ---
Subjective Progress Note Date: 11/17/24 89-year-old female, history of hypertension, hyperlipidemia, hypothyroidism, who presents the ER today as a transfer from outside hospital. Patient reports she had a fall about a year ago her right shoulder frequently pops in and out of place without much difficulty. She states that yesterday evening she was reaching into her refrigerator to grab a bottle of salad dressing and her shoulder popped out, she could not get it back in and she thought maybe it would go back in on its own but by this morning it had not gone back and so she went to outside hospital for evaluation. At the outside hospital Initially attempted reduction without sedation was unsuccessful and then attempted with sedation again was unsuccessful so she was transferred here. In addition to needing reduction patient walks at all times with a walker and will not be able to ambulate with her arm in a sling so we will need admission to the hospital. X-ray of the shoulder revealed dislocation of right humeral head from the glenoid - Right shoulder x-ray postreduction reveals successful reduction of shoulder 11/17/2024 Patient is seen in follow-up today with orthopedics following recommending conservative management. Patient is status post successful reduction in the ER of the right shoulder continues with the sling. Patient with significant pain being evaluated for possible ECF for continued PT/OT therapy and strength mobility. Daughter is concerned at the bedside given her age with narcotics and will avoid narcotics if possible and continue with other options. Will add Toradol as well as low-dose Ultram and extra strength Tylenol. Encouraged continued finger movement and squeezing and releasing right hand and will continue with sling. Patient to be evaluated by PT/OT therapy with plans of possible ECF. Social work has been consulted. Patient will require insurance authorization which will be submitted today. Review of systems: Constitutional: No reports of fatigue, fever, or chills Cardiovascular: No reports of chest pain or palpitations Respiratory: No reports of shortness of breath or cough GI: No reports of nausea, vomiting, or diarrhea : No reports of dysuria or retention Neurovascular: reports of generalized weakness and continued right shoulder pain All medications have been reviewed Physical exam: Gen: This is a 89-year-old female who is awake, alert and oriented x 2-3, baseline, well-developed, elderly appearing, obese HEENT: Head is atraumatic, normocephalic. Pupils equal, round. Sclerae is anicteric. NECK: Supple. No JVD. No lymphadenopathy. No thyromegaly. LUNGS: Diminished breath sounds bilaterally otherwise clear to auscultation. No wheezes or rhonchi. No intercostal retractions. HEART: S1, S2 are muffled ABDOMEN: Soft. Obese, bowel sounds are present. No masses. No tenderness. EXTREMITIES: No pedal edema. No calf tenderness. Right shoulder in a sling noted, positive right upper extremity pulses with cap refill less than 3 NEUROLOGICAL: Patient is awake, alert and oriented x 2. Cranial nerves 2 through 12 are grossly intact. Diffusely weak . Assessment: -Right shoulder dislocation status post successful bedside reduction -Inability to ambulate; patient uses walker and upper extremity strength; has not been able to ambulate properly due to pain in the shoulder; generalized weakness and patient is nonweightbearing of the right upper extremity making it difficult to ambulate -High risk for falls; patient ambulates with the help of a walker; reports unsteady gait -Hypertension -Hyperlipidemia -Hypothyroidism -Coronary artery disease -GI prophylaxis -Obesity with a BMI 36.4 -DVT prophylaxis; SCDs -full code Plan: Patient admitted from an outside facility status post dislocation with bedside reduction in the ER. Patient admitted with generalized weakness and falls for orthopedic evaluation Orthopedics recommending conservative management and will continue with sling recommending physical therapy Patient evaluated by physical therapy recommending rehab and patient is agreeable Home medications reviewed and resumed as appropriate Recommend limiting narcotic use in this elderly patient and monitor mentation Encouraged family to sit with patient and frequent reorientation if needed Awaiting updated PT/OT therapy notes and social work following working on discharge planning Patient will require insurance authorization which will be pending today Possible discharge planning in the next 24 to 48 hours The impression and plan of care has been dictated by Yareli Jackman Nurse Practitioner as directed. Dr. Yesi MD I have performed a history and examination and MDM of this patient, discussed the same with the dictator, and agree with the dictator's assessment and plan as written ,documented as a scribe. Based on total visit time, I have performed more than 50% of the visit. Objective - Vital Signs Vital signs: Vital Signs Temp 97.8 F 11/17/24 07:01 Pulse 55 L 11/17/24 07:01 Resp 16 11/17/24 07:01 BP 129/54 11/17/24 07:01 Pulse Ox 94 L 11/17/24 07:01 FiO2 Intake & Output 11/16/24 11/17/24 11/17/24 18:59 06:59 18:59 Intake Total 1961 Balance 1961 Intake: Oral 1961 Other: Voiding Method External Catheter Bedside Commode External Catheter # Voids 2 2 # Bowel Movements 2 - Labs CBC & Chem 7: 11/16/24 06:51 11/17/24 04:33 Labs: Abnormal Lab Results - Last 24 Hours (Table) 11/17/24 Range/Units 04:33 Glucose 123 H (70-110) mg/dL Calcium 8.6 L (8.7-10.3) mg/dL
[2024-11-18] MEDS ORDERED: LACTULOSE 20 GM/30 ML CUP PO PRN (13:27)
[2024-11-18] MEDS: NYSTATIN 100,000 UNIT/GM POWD 15 GM TOPICAL SCH (14:46)
[2024-11-18] MEDS: TAMSULOSIN 0.4 MG CAP.ER.24H PO SCH (14:46)
[2024-11-18] MEDS: SENNOSIDES 8.6 MG TAB PO SCH (14:46)
[2024-11-18] MEDS: LACTULOSE 20 GM/30 ML CUP PO ONE (14:47)
--- NOTE | 2024-11-19 04:40 | P.PN ---
Subjective Progress Note Date: 11/18/24 89-year-old female, history of hypertension, hyperlipidemia, hypothyroidism, who presents the ER today as a transfer from outside hospital. Patient reports she had a fall about a year ago her right shoulder frequently pops in and out of place without much difficulty. She states that yesterday evening she was reaching into her refrigerator to grab a bottle of salad dressing and her shoulder popped out, she could not get it back in and she thought maybe it would go back in on its own but by this morning it had not gone back and so she went to outside hospital for evaluation. At the outside hospital Initially attempted reduction without sedation was unsuccessful and then attempted with sedation again was unsuccessful so she was transferred here. In addition to needing reduction patient walks at all times with a walker and will not be able to ambulate with her arm in a sling so we will need admission to the hospital. X-ray of the shoulder revealed dislocation of right humeral head from the glenoid - Right shoulder x-ray postreduction reveals successful reduction of shoulder 11/17/2024 Patient is seen in follow-up today with orthopedics following recommending conservative management. Patient is status post successful reduction in the ER of the right shoulder continues with the sling. Patient with significant pain being evaluated for possible ECF for continued PT/OT therapy and strength mobility. Daughter is concerned at the bedside given her age with narcotics and will avoid narcotics if possible and continue with other options. Will add Toradol as well as low-dose Ultram and extra strength Tylenol. Encouraged continued finger movement and squeezing and releasing right hand and will continue with sling. Patient to be evaluated by PT/OT therapy with plans of possible ECF. Social work has been consulted. Patient will require insurance authorization which will be submitted today. 11/18/2024 Patient is seen in follow-up today and reporting some continued right shoulder discomfort does continue with sling and reports is mildly uncomfortable will attempt to order a new sling. Patient is reporting some constipation and will add as needed bowel regimen. Patient and daughter at the bedside agreeable to rehab with social work following currently awaiting insurance authorization which is pending at this time. Recommend limiting narcotic use given patient's age. Review of systems: Constitutional: No reports of fatigue, fever, or chills Cardiovascular: No reports of chest pain or palpitations Respiratory: No reports of shortness of breath or cough GI: No reports of nausea, vomiting, or diarrhea, reporting has not had a bowel movement in a couple of days : No reports of dysuria or retention Neurovascular: reports of generalized weakness and continued right shoulder pain All medications have been reviewed Physical exam: Gen: This is a 89-year-old female who is awake, alert and oriented x 2-3, baseline, well-developed, elderly appearing, obese HEENT: Head is atraumatic, normocephalic. Pupils equal, round. Sclerae is anicteric. NECK: Supple. No JVD. No lymphadenopathy. No thyromegaly. LUNGS: Diminished breath sounds bilaterally otherwise clear to auscultation. No wheezes or rhonchi. No intercostal retractions. HEART: S1, S2 are muffled ABDOMEN: Soft. Obese, bowel sounds are present. No masses. No tenderness. EXTREMITIES: No pedal edema. No calf tenderness. Right shoulder in a sling noted, positive right upper extremity pulses with cap refill less than 3 NEUROLOGICAL: Patient is awake, alert and oriented x 2. Cranial nerves 2 through 12 are grossly intact. Diffusely weak . Assessment: -Right shoulder dislocation status post successful bedside reduction -Inability to ambulate; patient uses walker and upper extremity strength; has not been able to ambulate properly due to pain in the shoulder; generalized weakness and patient is nonweightbearing of the right upper extremity making it difficult to ambulate -High risk for falls; patient ambulates with the help of a walker; reports unsteady gait -Acute urinary retention requiring indwelling Barksdale catheter, possibly secondary to constipation -Hypertension -Hyperlipidemia -Hypothyroidism -Coronary artery disease history -GI prophylaxis -Obesity with a BMI 36.4 -DVT prophylaxis; SCDs -full code Plan: Patient admitted from an outside facility status post dislocation with bedside reduction in the ER. Patient admitted with generalized weakness and falls for orthopedic evaluation Orthopedics recommending conservative management and will continue with sling recommending physical therapy Patient evaluated by physical therapy recommending rehab and patient is agreeable Patient reports she has not had a bowel movement in a couple of days and will add bowel regimen. Patient having some urinary retention requiring indwelling Barksdale catheter and will trial void prior to discharge, Flomax added, feel this is likely due to constipation Home medications reviewed and resumed as appropriate Recommend limiting narcotic use in this elderly patient and monitor mentation Encouraged family to sit with patient and frequent reorientation if needed Social work following and has been accepted at [facility] and will require insurance authorization which is pending at this time Possible discharge planning in the next 24 to 48 hours The impression and plan of care has been dictated by Yareli Jackman, Nurse Practitioner as directed. Dr. Yesi MD I have performed a history and examination and MDM of this patient, discussed the same with the dictator, and agree with the dictator's assessment and plan as written ,documented as a scribe. Based on total visit time, I have performed more than 50% of the visit. Objective - Vital Signs Vital signs: Vital Signs Temp 97.5 F L 11/18/24 08:39 Pulse 81 11/18/24 08:39 Resp 18 11/18/24 08:39 BP 147/52 11/18/24 08:39 Pulse Ox 97 11/18/24 08:39 FiO2 Intake & Output 11/17/24 11/18/24 11/18/24 18:59 06:59 18:59 Intake Total 1080 Output Total 1638 920 Balance -558 -920 Intake: Oral 1080 Output: Urine 850 920 Straight 850 Uretheral (Barksdale) 520 Post Void Residual 788 Other: Voiding Method Diaper Indwelling Catheter External Catheter # Voids 1 - Labs CBC & Chem 7: 11/16/24 06:51 11/17/24 04:33
[2024-11-19] MEDS ORDERED: SENNOSIDES 8.6 MG TAB PO PRN (04:42)
[2024-11-19 07:28] VITALS: RESP 18
[2024-11-19] MEDS: ACETAMINOPHEN TAB 325 MG TAB PO PRN (09:20)
[2024-11-19 12:33] VITALS: BP 149/72; PULSE 60; TEMP 97.9
--- NOTE | 2024-11-19 14:57 | P.DS ---
Providers Date of admission: 11/15/24 20:25 Expected date of discharge: 11/19/24 Attending physician: Oscar Castellanos MD Consults: 11/15/24 20:25 Consult Physician Routine Consulting Provider: Sean Winters Consult Reason/Comments: SHOULDER DISLOCATION Do you want consulting provider notified?: Already Contacted Primary care physician: Onur Billy MD Hospital Course: Final diagnosis -Right shoulder dislocation status post successful bedside reduction -Inability to ambulate; patient uses walker and upper extremity strength; has not been able to ambulate properly due to pain in the shoulder; generalized weakness and patient is nonweightbearing of the right upper extremity making it difficult to ambulate -High risk for falls; patient ambulates with the help of a walker; reports unsteady gait -Acute urinary retention requiring indwelling Barksdale catheter, secondary to constipation, improved and removed and patient is voiding -Hypertension -Hyperlipidemia -Hypothyroidism -Coronary artery disease history -GI prophylaxis -Obesity with a BMI 36.4 -DVT prophylaxis; SCDs -full code Discharge disposition Patient is being discharged in a stable condition with guarded prognosis to [facility]. Patient will follow-up with Dr. Billy in the outpatient setting upon discharge. Patient is to continue with nonweightbearing of the upper right extremity and continue with right shoulder sling. Per orthopedics patient is to remain nonweightbearing of the right upper extremity and continue with sling in place at all times other than for hygiene and patient should be avoiding external rotation and abduction of the right shoulder with possibly 2 weeks duration of sling immobilization. follow-up with orthopedics outpatient as scheduled. Total time taken is greater than 35 minutes. Hospital course This is a 89-year-old female who was recently admitted with right shoulder dislocation status post successful bedside reduction with orthopedics. Patient evaluated by orthopedics recommending continuous nonweightbearing of the right upper extremity along with shoulder sling remaining in place at all times other than for hygiene and when it is removed patient should be avoiding any external rotation and abduction of the right shoulder with approximately 2 weeks of sling immobilization and then possible initiation of gentle range of motion exercises to the right shoulder with supervised physical therapy. Patient to follow-up with orthopedics outpatient and has been cleared for discharge. Patient with significant weakness as patient is walker dependent with ambulation and unable to perform ADLs and walk independently secondary to this right shoulder. Patient has been accepted by [facility] and insurance authorization has been obtained. Patient will be going to [facility] report here on today. Please refer to other consultation notes for further HPI. Recommend cautious use of narcotic medication including Ultram given patient's age and concerns of altered mentation. Currently no reports of chest pain, shortness of breath, or palpitations. Patient is afebrile. No reports of nausea or vomiting and lilia ent is tolerating diet. Patient will be discharged to [facility] [place] today. Guarded prognosis given significant comorbidities Physical exam: Gen: This is a 89-year-old female who is awake, alert and oriented x 2-3, baseline, well-developed, elderly appearing, obese HEENT: Head is atraumatic, normocephalic. Pupils equal, round. Sclerae is anicteric. NECK: Supple. No JVD. No lymphadenopathy. No thyromegaly. LUNGS: Diminished breath sounds bilaterally otherwise clear to auscultation. No wheezes or rhonchi. No intercostal retractions. HEART: S1, S2 are muffled ABDOMEN: Soft. Obese. Bowel sounds are present. No masses. No tenderness. EXTREMITIES: No pedal edema. No calf tenderness. NEUROLOGICAL: Patient is awake, alert and oriented x2-3. Cranial nerves 2 through 12 are grossly intact. Diffusely weak Please refer to medication reconciliation sheet for a list of medications. The impression and plan of care has been dictated by Yareli Jackman, Nurse Practitioner as directed. Dr. Yesi MD I have performed a history and examination and MDM of this patient, discussed the same with the dictator, and agree with the dictator's assessment and plan as written ,documented as a scribe. Based on total visit time, I have performed more than 50% of the visit. Patient Condition at Discharge: Stable Plan - Discharge Summary Discharge Rx Participant: No New Discharge Prescriptions: New Tamsulosin [Flomax] 0.4 mg PO PC-BRKFST 7 Days #7 cap levETIRAcetam [Keppra] 500 mg PO HS tab Furosemide [Lasix] 20 mg PO DAILY tab Metoprolol Tartrate [Lopressor] 12.5 mg PO BID tab Lactulose [Cephulac] 20 gm PO BID PRN ml PRN Reason: Constipation Heparin Sodium,Porcine (1 ml) [Heparin Sodium] 5,000 unit SQ Q12HR each Nystatin 100,000 Unit/gm Powd [Mycostatin Powder] 1 applic TOPICAL TID each traMADol HCl [Ultram] 50 mg PO BID #4 tab Continue Levothyroxine Sodium [Synthroid] 25 mcg PO DAILY Aspirin 81 mg PO DAILY tab amLODIPine [Norvasc] 2.5 mg PO DAILY Pantoprazole [Protonix] 40 mg PO DAILY Fluticasone Nasal [place] [Flonase Nasal [place]] 1 spray EA NOSTRIL DAILY Calcium Carb/Mag Ox/Zinc Sulf [Vur-Roa-Dipl 334-134-5 mg Tab] 1 tab PO HS Inulin/Chromium Picolinate [Fiber Gummies Chew] 1 tab PO DAILY PRN PRN Reason: Constipation Ascorbic Acid/Collagen Hydr [Collagen Plus Vit C Capsule] 1 cap PO DAILY polyethylene glycoL 3350 [Miralax] 17 gm PO DAILY PRN PRN Reason: Constipation Sennosides [Senokot] 8.6 mg PO DAILY PRN PRN Reason: Constipation Atorvastatin [Lipitor] 80 mg PO HS tab Nitroglycerin Sl Tabs [Nitrostat] 0.4 mg SUBLINGUAL Q5M PRN tab PRN Reason: Chest Pain Clopidogrel [Plavix] 75 mg PO DAILY tab Cranberry 4,200 Mg 4,200 mg PO DAILY Cyanocobalamin (Vitamin B-12) [Vitamin B-12] 1,000 mcg PO DAILY Cholecalciferol (Vitamin D3) [Vitamin D3 (50 Mcg = 2000 Iu)] 50 mcg PO DAILY Mupirocin 2% Oint [Bactroban 2% Oint] 1 applic TOPICAL DAILY PRN PRN Reason: shingles Ketoconazole 2% Cream [Nizoral 2%] 1 applic TOPICAL DAILY PRN PRN Reason: shingles Albuterol Inhaler [Ventolin Hfa Inhaler] 2 puff INHALATION RT-Q4H PRN PRN Reason: Shortness Of Breath Potassium Gluconate 99 mg PO DAILY Ondansetron [Zofran] 4 mg PO Q8HR PRN PRN Reason: Nausea Acetaminophen [Tylenol 8 Hour] 650 mg PO BID Folic Acid 0.4 mg PO DAILY Discontinued Metoprolol Tartrate [Lopressor] 12.5 mg PO DAILY Nystatin 100,000 Unit/gm Powd [Mycostatin Powder] 1 applic TOPICAL BID PRN PRN Reason: yeast infection Furosemide [Lasix] 40 mg PO DAILY Discharge Medication List Levothyroxine Sodium [Synthroid] 25 mcg PO DAILY 06/30/19 [History] Aspirin 81 mg PO DAILY tab 12/11/23 [Rx] Atorvastatin [Lipitor] 80 mg PO HS tab 12/11/23 [Rx] Clopidogrel [Plavix] 75 mg PO DAILY tab 12/11/23 [Rx] Nitroglycerin Sl Tabs [Nitrostat] 0.4 mg SUBLINGUAL Q5M PRN tab 12/11/23 [Rx] Acetaminophen [Tylenol 8 Hour] 650 mg PO BID 11/16/24 [History] Albuterol Inhaler [Ventolin Hfa Inhaler] 2 puff INHALATION RT-Q4H PRN 11/16/24 [History] Ascorbic Acid/Collagen Hydr [Collagen Plus Vit C Capsule] 1 cap PO DAILY 11/16/24 [History] Calcium Carb/Mag Ox/Zinc Sulf [Kan-Ugv-Ejkz 334-134-5 mg Tab] 1 tab PO HS 11/16/24 [History] Cholecalciferol (Vitamin D3) [Vitamin D3 (50 Mcg = 2000 Iu)] 50 mcg PO DAILY 11/16/24 [History] Cranberry 4,200 Mg 4,200 mg PO DAILY 11/16/24 [History] Cyanocobalamin (Vitamin B-12) [Vitamin B-12] 1,000 mcg PO DAILY 11/16/24 [History] Fluticasone Nasal [place] [Flonase Nasal [place]] 1 spray EA NOSTRIL DAILY 11/16/24 [History] Folic Acid 0.4 mg PO DAILY 11/16/24 [History] Inulin/Chromium Picolinate [Fiber Gummies Chew] 1 tab PO DAILY PRN 11/16/24 [History] Ketoconazole 2% Cream [Nizoral 2%] 1 applic TOPICAL DAILY PRN 11/16/24 [History] Mupirocin 2% Oint [Bactroban 2% Oint] 1 applic TOPICAL DAILY PRN 11/16/24 [History] Ondansetron [Zofran] 4 mg PO Q8HR PRN 11/16/24 [History] Pantoprazole [Protonix] 40 mg PO DAILY 11/16/24 [History] Potassium Gluconate 99 mg PO DAILY 11/16/24 [History] Sennosides [Senokot] 8.6 mg PO DAILY PRN 11/16/24 [History] amLODIPine [Norvasc] 2.5 mg PO DAILY 11/16/24 [History] polyethylene glycoL 3350 [Miralax] 17 gm PO DAILY PRN 11/16/24 [History] Furosemide [Lasix] 20 mg PO DAILY tab 11/19/24 [Rx] Heparin Sodium,Porcine (1 ml) [Heparin Sodium] 5,000 unit SQ Q12HR each 11/19/24 [Rx] Lactulose [Cephulac] 20 gm PO BID PRN ml 11/19/24 [Rx] Metoprolol Tartrate [Lopressor] 12.5 mg PO BID tab 11/19/24 [Rx] Nystatin 100,000 Unit/gm Powd [Mycostatin Powder] 1 applic TOPICAL TID each 11/19/24 [Rx] Tamsulosin [Flomax] 0.4 mg PO PC-BRKFST 7 Days #7 cap 11/19/24 [Rx] levETIRAcetam [Keppra] 500 mg PO HS tab 11/19/24 [Rx] traMADol HCl [Ultram] 50 mg PO BID #4 tab 11/19/24 [Rx] Follow up Appointment(s)/Referral(s): Sean Winters MD [STAFF PHYSICIAN] - 1 Week Onur Billy MD [Primary Care Provider] - 1 Week Activity/Diet/Wound Care/Special Instructions: [facility] [place] Activity as tolerated Continue taking medications as prescribed Continue with bowel regimen as needed Follow-up with orthopedics outpatient Continue with sling to the right upper extremity Continue nonweightbearing of the right upper extremity Continue regular diet Follow-up with primary care provider on discharge Discharge Disposition: TRANSFER TO SNF/ECF
== END 2024-11-19 17:33 | DRG 563 ==
LOC: EC 17:12 → 5NMEDONC 20:25
PROVIDERS: ADMIT Internal Medicine; ATTEND Internal Medicine
PROC: 0RSJXZZ Reposition Right Shoulder Joint, External Approach (ICD-10-PCS; principal; 2024-11-15)
DX: S43.014A Anterior dislocation of right humerus, initial encounter (principal); E03.9 Hypothyroidism, unspecified; I10 Essential (primary) hypertension; E66.9 Obesity, unspecified; E78.5 Hyperlipidemia, unspecified; M25.319 Other instability, unspecified shoulder; I25.10 Atherosclerotic heart disease of native coronary artery without angina pectoris; Z79.890 Hormone replacement therapy; Z68.36 Body mass index [BMI] 36.0-36.9, adult; W19.XXXA Unspecified fall, initial encounter; K59.00 Constipation, unspecified; Z79.02 Long term (current) use of antithrombotics/antiplatelets; Z79.82 Long term (current) use of aspirin; Z79.899 Other long term (current) drug therapy; Z90.710 Acquired absence of both cervix and uterus; Z91.81 History of falling
CPT/HCPCS: 23650; 80048; 81003; 85025; 96361; 96374; 99152; 99285